=== PATIENT | female | born 1980 | race Caucasian/White ===

== ENCOUNTER 2017-02-27 01:27 | Emergency (ER) | payer BC ==
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
[2017-02-27 02:13] LABS: ABSOLUTE LYMPHOCYTES (AUTO) 2.8 10^3/uL (0.5-4.7); ABSOLUTE MONOCYTES (AUTO) 0.4 10^3/uL (0.1-1.4); ABSOLUTE NEUT (AUTO) 3.5 10^3/uL (1.7-8.2); BASOPHILS % (AUTO) 0.5 % (0-2); EOSINOPHILS % (AUTO) 0.5 % (0-6); HEMATOCRIT 38.7 % (36.0-47.0); HEMOGLOBIN 12.8 g/dL (12.0-15.5); HGB HCT DIFFERENCE -0.3; MEAN CORPUSCULAR HEMOGLOBIN 32.3 pg (27.0-33.4); MEAN CORPUSCULAR HGB CONC 33.1 g/dL (32.0-36.0); MEAN CORPUSCULAR VOLUME 98 fl (80-97); MONOCYTES % (AUTO) 5.7 % (3-13); RED BLOOD COUNT 3.96 10^6/uL (3.72-5.28); RED CELL DISTRIBUTION WIDTH 13.9 % (11.5-14.0); SEGMENTED NEUTROPHILS % (AUTO) 51.3 % (42-78); WHITE BLOOD COUNT 6.7 10^3/uL (4.0-10.5)
[2017-02-27 02:26] LABS: ALANINE AMINOTRANSFERASE 17 U/L (9-52); ALBUMIN 4.2 g/dL (3.5-5.0); ALKALINE PHOSPHATASE 86 U/L (38-126); ANION GAP 16 (5-19); ASPARTATE AMINO TRANSFERASE 24 U/L (14-36); BILIRUBIN,DIRECT 0.2 mg/dL (0.0-0.4); BILIRUBIN,TOTAL 0.2 mg/dL (0.2-1.3); BLOOD UREA NITROGEN 6 mg/dL (7-20); CALCIUM 9.8 mg/dL (8.4-10.2); CARBON DIOXIDE 15 mmol/L (22-30); CHLORIDE 111 mmol/L (98-107); CREATININE RESULT 0.65 mg/dL (0.52-1.25); GLUCOSE 116 mg/dL (75-110); POTASSIUM 4.1 mmol/L (3.6-5.0); SODIUM 142.3 mmol/L (137-145); TOTAL PROTEIN 7.4 g/dL (6.3-8.2)
[2017-02-27 02:38] LABS: ALCOHOL 401 mg/dL (NONE DETECTED)
[2017-02-27 07:44] LABS: APPEARANCE,URINE CLEAR; BILIRUBIN,URINE NEGATIVE (NEGATIVE); GLUCOSE, URINE NEGATIVE (NEGATIVE); KETONES,URINE NEGATIVE (NEGATIVE); LEUKOCYTE ESTERASE,URINE NEGATIVE (NEGATIVE); NITRITE,URINE NEGATIVE (NEGATIVE); PROTEIN,URINE NEGATIVE (NEGATIVE); URINE SPECIFIC GRAVITY 1.004; UROBILINOGEN,URINE NEGATIVE mg/dL (<2.0)
[2017-02-27 08:01] LABS: URINE BARBITURATES SCREEN NEGATIVE; URINE METHADONE SCREEN NEGATIVE; URINE OPIATES LOW NEGATIVE; URINE PHENCYCLIDINE SCREEN NEGATIVE
--- NOTE | 2017-02-27 09:47 | ER Document Report ---
Doctor's Note Notes: 02/27/17 09:46 Patient is calm and cooperative at time of my evaluation, resting comfortably on stretcher, she is requesting a glass of water, she does not recall most of what occurred last night but when I talked to her about her high blood alcohol level and a suicide note she did recall both of these facts, and became quite tearful, states she has a history of suicide attempt in the past but a long time ago, she is not currently in any type of mental health treatment program, we are awaiting evaluation by mental health coordinator for further recommendations, otherwise patient is medically stable for transfer or discharge based on those recommendations
--- NOTE | 2017-02-27 10:24 | EKG REPORT ---
SEVERITY:- NORMAL ECG - SINUS RHYTHM : Confirmed by: Shelia Posadas MD 27-Feb-2017 10:22:34
[2017-02-27] MEDS ORDERED: ONDANSETRON 4 MG TAB.RAPDIS SL ONE (13:08)
[2017-02-27] MEDS ORDERED: ALPRAZOLAM 0.25 MG TABLET PO ONE (13:27)
[2017-02-27] MEDS ORDERED: IBUPROFEN 600 MG TABLET PO ONE ×2 (17:21→21:38)
[2017-02-27] MEDS ORDERED: PROMETHAZINE HCL 25 MG TABLET PO ONE (20:35)
[2017-02-27] MEDS ORDERED: DIPHENHYDRAMINE HCL 50 MG CAPSULE PO ONE (21:38)
[2017-02-27] MEDS ORDERED: BUSPIRONE HCL 10 MG TABLET PO SCH (22:00)
[2017-02-27] MEDS ORDERED: ALPRAZOLAM 0.5 MG TABLET PO ONE (23:25)
[2017-02-28] MEDS ORDERED: PROMETHAZINE HCL 25 MG TABLET PO ONE ×2 (04:37→10:29)
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
[2017-02-28] MEDS ORDERED: IBUPROFEN 600 MG TABLET PO ONE (07:50)
[2017-02-28] MEDS ORDERED: VENLAFAXINE HCL 37.5 MG CAP.SR.24H PO SCH (10:00)
--- NOTE | 2017-02-28 10:31 | ER Document Report ---
Doctor's Note Notes: 02/28/17 10:30 The patient is complaining of nausea this morning. She reports she has nausea frequently, she states she started her period this morning and that is a trigger for nausea. She has a prescription for Phenergan at home and usually takes 2 at a time. She states they have only been giving her one at a time and last dose was last night. He will be given Phenergan 50 mg p.o. at this time. She will be reassessed by mental health this morning, as her alcohol level is now down to 0.
[2017-02-28] MEDS ORDERED: ACETAMINOPHEN 325 MG TABLET PO ONE (12:12)
[2017-02-28] MEDS ORDERED: PROMETHAZINE HCL 25 MG TABLET PO PRN (14:49)
[2017-02-28] MEDS ORDERED: ONDANSETRON HCL 8 MG TABLET PO PRN (14:49)
--- NOTE | 2017-02-28 15:43 | ER Document Report ---
Doctor's Note Notes: 02/28/17 15:43 Patient has been accepted at [facility] and will be transported shortly.
[2017-02-28 15:48] VITALS: BP 134/82
[2017-02-28] MEDS ORDERED: ALPRAZOLAM 0.5 MG TABLET PO SCH (18:00)
[2017-02-28] MEDS ORDERED: TIZANIDINE HCL 4 MG TABLET PO SCH (18:00)
[2017-03-01] MEDS ORDERED: LANSOPRAZOLE 30 MG TAB.RAP.DR PO SCH (08:00)
[2017-03-01] MEDS ORDERED: RIVAROXABAN 10 MG TABLET PO SCH (10:00)
[2017-03-01] MEDS ORDERED: FEXOFENADINE PO SCH (10:00)
[2017-03-01] MEDS ORDERED: PSEUDOEPHEDRINE PO SCH (10:00)
[2017-03-01] MEDS ORDERED: ESCITALOPRAM OXALATE 10 MG TABLET PO SCH (10:00)
[2017-03-01] MEDS ORDERED: LORATADINE/PSEUDOEPHEDRINE SUL 10-240 MG TAB.SR.24H PO SCH (10:00)
[2017-03-01] MEDS ORDERED: FLUTICASONE NASAL SPRAY 50 MCG/SPRY 120 SPRAY/16 GM NASL SCH (10:00)
== END 2017-02-28 16:05 | disposition short-term general hospital (02) ==
LOC: ER 01:27
DX: R45.851 Suicidal ideations (principal); R11.0 Nausea; Z63.0 Problems in relationship with spouse or partner; F32.9 Major depressive disorder, single episode, unspecified; Z79.899 Other long term (current) drug therapy
CPT/HCPCS: 93005; 99284; 36415; 80307 ×4; 84703; 85025; 80053; 81001; 93010; J3490; S0119

== ENCOUNTER 2018-02-14 23:28 | Emergency (ER) | payer OTHER, BC ==
[2018-02-14] MEDS ORDERED: ONDANSETRON 4 MG TAB.RAPDIS PO ONE (23:53)
[2018-02-14] MEDS ORDERED: DIPH/PERTUSS(ACELL)/TETANUS VAC/PF 0.5 ML SYR (>=10YO) IM ONE (23:54)
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
[2018-02-15] MEDS ORDERED: ACETAMINOPHEN 325 MG TABLET PO ONE (00:47)
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
[2018-02-15] MEDS ORDERED: ONDANSETRON 4 MG TAB.RAPDIS ONE (00:59)
[2018-02-15 01:15] VITALS: BP 125/87
== END 2018-02-15 01:05 | disposition home or self-care (01) ==
LOC: ER 23:28
DX: S00.11XA Contusion of right eyelid and periocular area, initial encounter (principal); S00.83XA Contusion of other part of head, initial encounter; S02.2XXA Fracture of nasal bones, initial encounter for closed fracture; S00.03XA Contusion of scalp, initial encounter; S40.022A Contusion of left upper arm, initial encounter; Y04.2XXA Assault by strike against or bumped into by another person, initial encounter; V47.5XXA Car driver injured in collision with fixed or stationary object in traffic accident, initial encounter
CPT/HCPCS: 99284; 73060; 70450; 72125; S0119

== ENCOUNTER 2018-06-14 04:09 | Emergency (ER) | payer BC ==
[2018-06-14] MEDS ORDERED: NORMAL SALINE 1000 ML 1,000 ML IV ONE (04:37)
[2018-06-14] MEDS ORDERED: ONDANSETRON HCL INJ/PF 4 MG/2 ML SDV IV ONE ×2 (04:37→06:14)
--- NOTE | 2018-06-14 04:38 | ER Document Report ---
ED Medical Screen (RME) - General Chief Complaint: Abdominal Pain Stated Complaint: ABDOMINAL PAIN Time Seen by Provider: 06/14/18 04:31 Notes: 2-year-old female chief complaint of upper abdominal pain, vomiting, a few episodes of loose stools. Symptoms started yesterday. Denies fever, flank pain , or any other complaints. Reports feeling dehydrated and that she "came for fluids". TRAVEL OUTSIDE OF THE [place] IN LAST 30 DAYS: No - Related Data Allergies/Adverse Reactions: No Known Allergies Allergy (Verified 06/14/18 04:12) Past Medical History - Past Medical History Cardiac Medical History: Denies: Hx Heart Attack, Hx Hypertension Pulmonary Medical History: Denies: Hx Asthma Neurological Medical History: Denies: Hx Cerebrovascular Accident, Hx Seizures Renal/ Medical History: Denies: Hx Peritoneal Dialysis GI Medical History: Reports: Hx Gastroesophageal Reflux Disease. Denies: Hx Hepatitis, Hx Hiatal Hernia, Hx Ulcer Psychiatric Medical History: Reports: Hx Depression Infectious Medical History: Denies: Hx Hepatitis Past Surgical History: Reports: Hx Tubal Ligation. Denies: Hx Hysterectomy, Hx Mastectomy, Hx Open Heart Surgery, Hx Pacemaker - Immunizations Hx Diphtheria, Pertussis, Tetanus Vaccination: Yes Physical Exam - Vital signs Vitals: Temp Pulse Resp BP Pulse Ox 98.2 F 95 18 97/59 L 96 06/14/18 04:12 06/14/18 04:12 06/14/18 04:12 06/14/18 04:12 06/14/18 04:12 - Abdominal Tenderness: Tender - Generalized abdominal tenderness with increased tenderness in the general upper abdomen, no guarding, rigidity, or rebound tenderness Course - Vital Signs Vital signs: Temp Pulse Resp BP Pulse Ox 98.2 F 95 18 97/59 L 96 06/14/18 04:12 06/14/18 04:12 06/14/18 04:12 06/14/18 04:12 06/14/18 04:12 Doctor's Discharge - Discharge Referrals: MARCOS GILLESPIE MD [Primary Care Provider] - Follow up as needed
[2018-06-14 05:01] LABS: ABSOLUTE EOSINOPHILS # (AUTO) 0.1 10^3/uL (0.0-0.6); ABSOLUTE LYMPHOCYTES (AUTO) 2.3 10^3/uL (0.5-4.7); ABSOLUTE MONOCYTES (AUTO) 0.4 10^3/uL (0.1-1.4); ABSOLUTE NEUT (AUTO) 10.7 10^3/uL (1.7-8.2); BASOPHILS % (AUTO) 0.3 % (0-2); EOSINOPHILS % (AUTO) 0.8 % (0-6); HEMATOCRIT 27.7 % (36.0-47.0); LYMPHOCYTES % (AUTO) 16.6 % (13-45); MEAN CORPUSCULAR HEMOGLOBIN 24.4 pg (27.0-33.4); MEAN CORPUSCULAR HGB CONC 32.5 g/dL (32.0-36.0); MEAN CORPUSCULAR VOLUME 75 fl (80-97); MONOCYTES % (AUTO) 3.2 % (3-13); PLATELET COUNT 457 10^3/uL (150-450); RED BLOOD COUNT 3.69 10^6/uL (3.72-5.28); SEGMENTED NEUTROPHILS % (AUTO) 79.1 % (42-78); TOTAL CELLS COUNTED % (AUTO) 100 %; WHITE BLOOD COUNT 13.6 10^3/uL (4.0-10.5)
[2018-06-14 05:14] LABS: ALANINE AMINOTRANSFERASE 18 U/L (9-52); ALBUMIN 4.3 g/dL (3.5-5.0); ALKALINE PHOSPHATASE 139 U/L (38-126); ANION GAP 18 (5-19); ASPARTATE AMINO TRANSFERASE 27 U/L (14-36); BILIRUBIN,DIRECT 0.2 mg/dL (0.0-0.4); BILIRUBIN,TOTAL 0.2 mg/dL (0.2-1.3); BLOOD UREA NITROGEN 5 mg/dL (7-20); CALCIUM 9.1 mg/dL (8.4-10.2); CARBON DIOXIDE 19 mmol/L (22-30); CHLORIDE 105 mmol/L (98-107); GLUCOSE 109 mg/dL (75-110); LIPASE 1611.6 U/L (23-300); SODIUM 141.5 mmol/L (137-145); TOTAL PROTEIN 7.4 g/dL (6.3-8.2)
[2018-06-14] MEDS ORDERED: NORMAL SALINE 1000 ML 1,000 ML IV PRN (06:12)
[2018-06-14] MEDS ORDERED: FENTANYL CITRATE INJ/PF 100 MCG/2 ML AMPUL IV ONE (06:14)
--- NOTE | 2018-06-14 06:32 | ER Document Report ---
ED GI/ - General Chief Complaint: Abdominal Pain Stated Complaint: ABDOMINAL PAIN Time Seen by Provider: 06/14/18 04:31 Mode of Arrival: Ambulatory Information source: Patient Notes: Chief complaint: abdominal pain: History of complain:( obtained from----patient) 38 years old female, with a history of alcohol abuse and pancreatitis, presents today with an episode of abdominal pain nausea vomiting. Was acting belligerent. Appears to be under the influence of either alcohol or sedating substance. She falls asleep frequently and wakes up screaming. No history of fever chills diarrhea. History is limited. Onset: Unknown Duration: Unknown Severity: Moderate to severe Quality: Sharp Context: Abdominal pain Exacerbating factor and relieving factors: REVIEW OF SYSTEMS: CONSTITUTIONAL : Denies fever, chills, or sweats. Denies recent illness. EENT: Denies eye, ear, throat, or mouth pain or symptoms. Denies nasal or sinus congestion or discharge. Denies throat, tongue, or mouth swelling or difficulty swallowing. CARDIOVASCULAR: Denies chest pain. Denies palpitations or racing or irregular heart beat. Denies ankle edema. RESPIRATORY: Denies cough, cold, or chest congestion. Denies shortness of breath, difficulty breathing, or wheezing. GASTROINTESTINAL: Denies distention. Denies nausea, vomiting, or diarrhea. Denies blood in vomitus, stools, or per rectum. Denies black, tarry stools. Denies constipation. GENITOURINARY: Denies difficulty urinating, painful urination, burning, frequency, blood in urine, or discharge. FEMALE GENITOURINARY: Denies vaginal bleeding, heavy or abnormal periods, irregular periods. Denies vaginal discharge or odor. MUSCULOSKELETAL: Denies back or neck pain or stiffness. Denies joint pain or swelling. SKIN: Denies rash, lesions or sores. HEMATOLOGIC : Denies easy bruising or bleeding. LYMPHATIC: Denies swollen, enlarged glands. NEUROLOGICAL: Denies confusion or altered mental status. Denies passing out or loss of consciousness. Denies dizziness or lightheadedness. Denies headache. Denies weakness or paralysis or loss of use of either side. Denies problems with gait or speech. Denies sensory loss, numbness, or tingling. Denies seizures. PSYCHIATRIC: Denies anxiety or stress. Denies depression, suicidal ideation, or homicidal ideation. ALL OTHER SYSTEMS REVIEWED AND NEGATIVE. PHYSICAL EXAMINATION: GENERAL: Well-appearing, well-nourished and in moderate acute distress. HEAD: Atraumatic, normocephalic. EYES: Pupils equal round and reactive to light, extraocular movements intact, conjunctiva are normal. ENT: Nares patent, oropharynx clear without exudates. Moist mucous membranes. NECK: Normal range of motion, supple without lymphadenopathy LUNGS: Breath sounds clear to auscultation bilaterally and equal. No wheezes rales or rhonchi. HEART: Regular rate and rhythm without murmurs ABDOMEN: Soft, nontender, nondistended abdomen. No guarding, no rebound. No masses appreciated. Female : deferred Musculoskeletal: Normal range of motion, no pitting or edema. No cyanosis. NEUROLOGICAL: Cranial nerves grossly intact. Normal speech, normal gait. Normal sensory, motor exams PSYCH: Normal mood, normal affect. SKIN: Warm, Dry, normal turgor, no rashes or lesions noted. Dictation was performed using [employer] voice recognition software TRAVEL OUTSIDE OF THE [place] IN LAST 30 DAYS: No - HPI Notes: 06/14/18 06:31 Dictated - Related Data Allergies/Adverse Reactions: No Known Allergies Allergy (Verified 06/14/18 04:12) Past Medical History - Social History Smoking Status: Smoker,Current Status Unk Cigarette use (# per day): No Chew tobacco use (# tins/day): No Smoking Education Provided: No Frequency of alcohol use: Heavy Drug Abuse: Prescription drugs - Unknown as of yet Lives with: Alone Family History: Reviewed & Not Pertinent Patient has suicidal ideation: No Patient has homicidal ideation: No - Past Medical History Cardiac Medical History: Denies: Hx Heart Attack, Hx Hypertension Pulmonary Medical History: Denies: Hx Asthma Neurological Medical History: Denies: Hx Cerebrovascular Accident, Hx Seizures Renal/ Medical History: Denies: Hx Peritoneal Dialysis GI Medical History: Reports: Hx Gastroesophageal Reflux Disease. Denies: Hx Hepatitis, Hx Hiatal Hernia, Hx Ulcer Psychiatric Medical History: Reports: Hx Depression Infectious Medical History: Denies: Hx Hepatitis Past Surgical History: Reports: Hx Tubal Ligation. Denies: Hx Hysterectomy, Hx Mastectomy, Hx Open Heart Surgery, Hx Pacemaker - Immunizations Hx Diphtheria, Pertussis, Tetanus Vaccination: Yes Review of Systems - Review of Systems Notes: Dictated Physical Exam - Vital signs Vitals: Temp Pulse Resp BP Pulse Ox 98.2 F 95 18 97/59 L 96 06/14/18 04:12 06/14/18 04:12 06/14/18 04:12 06/14/18 04:12 06/14/18 04:12 - Notes Notes: Dictated Course - Vital Signs Vital signs: Temp Pulse Resp BP Pulse Ox 98.2 F 95 18 97/59 L 96 06/14/18 04:12 06/14/18 04:12 06/14/18 04:12 06/14/18 04:12 06/14/18 04:12 - Laboratory Result Diagrams: 06/14/18 04:44 06/14/18 04:44 Laboratory results interpreted by me: 06/14/18 06/14/18 04:44 04:44 WBC 13.6 H RBC 3.69 L Hgb 9.0 L Hct 27.7 L MCV 75 L MCH 24.4 L RDW 22.0 H Plt Count 457 H Seg Neutrophils % 79.1 H Absolute Neutrophils 10.7 H Carbon Dioxide 19 L BUN 5 L Alkaline Phosphatase 139 H Lipase 1611.6 H Discharge - Discharge Referrals: MARCOS GILLESPIE MD [Primary Care Provider] - Follow up as needed
[2018-06-14 07:10] VITALS: BP 118/65
[2018-06-14 08:30] LABS: APPEARANCE,URINE CLEAR; BILIRUBIN,URINE NEGATIVE (NEGATIVE); COLOR,URINE COLORLESS; GLUCOSE, URINE NEGATIVE (NEGATIVE); KETONES,URINE NEGATIVE (NEGATIVE); LEUKOCYTE ESTERASE,URINE NEGATIVE (NEGATIVE); NITRITE,URINE NEGATIVE (NEGATIVE); PROTEIN,URINE NEGATIVE (NEGATIVE); URINE SPECIFIC GRAVITY 1.002; UROBILINOGEN,URINE NEGATIVE mg/dL (<2.0)
[2018-06-14 08:53] LABS: URINE AMPHETAMINES SCREEN NEGATIVE; URINE BARBITURATES SCREEN NEGATIVE; URINE BENZODIAZEPINES SCREEN NEGATIVE; URINE COCAINE SCREEN NEGATIVE; URINE MARIJUANA (THC) SCREEN NEGATIVE; URINE METHADONE SCREEN NEGATIVE; URINE PHENCYCLIDINE SCREEN NEGATIVE
== END 2018-06-14 12:07 | disposition left against medical advice (07) ==
LOC: ER 04:09
DX: R10.9 Unspecified abdominal pain (principal); F17.200 Nicotine dependence, unspecified, uncomplicated; Z98.51 Tubal ligation status
CPT/HCPCS: 96376; 99284; 96361; 96374; 36415; 80307 ×2; 83690; 85025; 81025; 80053; 81001; J2405

== ENCOUNTER 2018-07-24 16:37 | Inpatient (IN) | payer BC ==
--- NOTE | 2018-07-24 16:47 | ER Document Report ---
ED Psych Disorder / Suicide - General Chief Complaint: Suicidal Ideation Stated Complaint: SUICIDAL IDEATION Time Seen by Provider: 07/24/18 16:42 Notes: This is a 38-year-old female to the emergency department chief complaint of intoxication and possible suicidal ideation. Patient states that she is a heavy drinker. Was recently on a drug and alcohol treatment program. Thinks it may be she is drinking to kill herself. She did not actually tell me this but this is what she had reportedly told an officer on the scene. Patient states that she has a headache. Patient does have a bruise on her left eye. States that she has some abdominal pain as well. History of pancreatitis. Denies any other ingestions other than a gallon of vodka. Thinks that she may have drunk half a gallon of vodka today. She states that she has been vomiting for several days. TRAVEL OUTSIDE OF THE [place] IN LAST 30 DAYS: No - HPI Patient complains to provider of: Overdose, Suicidal ideation Onset was: Gradual Quality of pain: Achy Severity: Moderate Pain Level: 3 - Related Data Allergies/Adverse Reactions: No Known Allergies Allergy (Verified 07/24/18 16:42) Past Medical History - General Information source: Patient, [facility] Records - Social History Smoking Status: Smoker,Current Status Unk Frequency of alcohol use: Heavy Drug Abuse: None Lives with: Family Family History: Reviewed & Not Pertinent - Past Medical History Cardiac Medical History: Denies: Hx Heart Attack, Hx Hypertension Pulmonary Medical History: Denies: Hx Asthma Neurological Medical History: Denies: Hx Cerebrovascular Accident, Hx Seizures Renal/ Medical History: Denies: Hx Peritoneal Dialysis GI Medical History: Reports: Hx Gastroesophageal Reflux Disease. Denies: Hx Hepatitis, Hx Hiatal Hernia, Hx Ulcer Psychiatric Medical History: Reports: Hx Depression Infectious Medical History: Denies: Hx Hepatitis Past Surgical History: Reports: Hx Tubal Ligation. Denies: Hx Hysterectomy, Hx Mastectomy, Hx Open Heart Surgery, Hx Pacemaker - Immunizations Hx Diphtheria, Pertussis, Tetanus Vaccination: Yes Review of Systems - Review of Systems Notes: Constitutional: denies: Chills, Diaphoresis, Fever, Malaise, Weakness EENT: denies: Eye discharge, Blurred vision, Tearing, Double vision, Nose congestion, Nose discharge, Throat swelling, Mouth pain. +Pain on the left eye with bruising Cardiovascular: denies: Palpitations, Heart racing, Orthopnea, Dyspnea, Chest pain Respiratory: denies: Cough, Hurts to breathe, Wheezing, Shortness of breath Gastrointestinal: denies: Diarrhea, Nausea, Vomiting, Black stools, bright red blood in stool. + Epigastric abd pain Genitourinary: denies: Burning, Dysuria, Discharge, Frequency, Flank pain, Hematuria Musculoskeletal: denies: Joint pain, Joint swelling, Muscle pain, Muscle stiffness, back pain Hematologic/Lymphatic: denies: Anemia, Easy bleeding, Easy bruising, Blood clots Neurological/Psychological: denies: Confusion, Dementia, Depression, Loss of consciousness Skin: No lesions, no masses, no skin breakdown, no abscesses Physical Exam - Vital signs Vitals: Temp Pulse Resp BP Pulse Ox 98.9 F 93 18 142/80 H 96 07/24/18 17:00 07/24/18 17:00 07/24/18 17:00 07/24/18 17:00 07/24/18 17:00 Interpretation: Normal - General General appearance: Appears well, Alert - HEENT Head: Normocephalic, Atraumatic Eyes: Normal, Other - There is a bruise on the left upper eyelid Pupils: PERRL - Respiratory Respiratory status: No respiratory distress Chest status: Nontender Breath sounds: Normal Chest palpation: Normal - Cardiovascular Rhythm: Regular Heart sounds: Normal auscultation Murmur: No - Abdominal Inspection: Normal Distension: No distension Bowel sounds: Normal Tenderness: Nontender Organomegaly: No organomegaly - Back Back: Normal, Nontender - Extremities General upper extremity: Normal inspection, Nontender, Normal color, Normal ROM , Normal temperature General lower extremity: Normal inspection, Nontender, Normal color, Normal ROM , Normal temperature, Normal weight bearing. No: Florin's sign - Neurological Neuro grossly intact: Yes Cognition: Normal Orientation: AAOx4 Ashlee Coma Scale Eye Opening: Spontaneous Ashlee Coma Scale Verbal: Oriented [place] Coma Scale Motor: Obeys Commands Ashlee Coma Scale Total: 15 Speech: Normal Motor strength normal: LUE, RUE, LLE, RLE Sensory: Normal - Psychological Associated symptoms: Confused, Depressed, Tearful, Other - Intoxicated - Skin Skin Temperature: Warm Skin Moisture: Dry Skin Color: Normal Course - Re-evaluation Re-evalutation: 07/24/18 17:22 At this time with patient's reported alcohol ingestion we will get basic psych screening labs. Will place on a petition for observation. Will get head CT. Pepcid p.o. and reassess. 07/24/18 18:14 Patient's blood work revealed remarkably decreased sodium level at 108. ED seizure precaution orders placed. Stat IV ordered. Normal saline bolus ordered. Normal saline drip ordered. Will place patient on a monitor. Will move out of the mental health area and back over to the main side of the ED as soon as possible. 07/24/18 18:18 Laboratory 07/24/18 07/24/18 07/24/18 16:45 16:45 16:45 WBC 15.1 H RBC 4.10 Hgb 9.5 L Hct 27.6 L MCV 67 L MCH 23.1 L MCHC 34.3 RDW 20.7 H Plt Count 670 H Seg Neutrophils % 91.9 H Lymphocytes % 6.0 L Monocytes % 2.1 L Eosinophils % 0.0 Basophils % 0.0 Absolute Neutrophils 13.9 H Absolute Lymphocytes 0.9 Absolute Monocytes 0.3 Absolute Eosinophils 0.0 Absolute Basophils 0.0 Sodium 108.1 L* Potassium 4.9 Chloride 59 L Carbon Dioxide 23 Anion Gap 26 H BUN 6 L Creatinine 0.50 L Est GFR ( Amer) > 60 Est GFR (Non-Af Amer) > 60 Glucose 111 H Calcium 9.2 Total Bilirubin 0.4 Direct Bilirubin 0.3 Neonat Total Bilirubin Not Reportable Neonat Direct Bilirubin Not Reportable Neonat Indirect Bili Not Reportable AST 70 H ALT 36 Alkaline Phosphatase 172 H Total Protein 8.1 Albumin 4.9 Lipase 449.9 H Salicylates < 1.0 L Acetaminophen < 10 L Serum Alcohol 180 07/24/18 19:01 Repeat stat sodium still remarkably low at 109. Patient currently getting normal saline. Patient is sitting upright. Complaining of a headache. Head CT results pending but appears unremarkable. 07/24/18 19:[address] 07/24/18 17:07 IMPRESSION: No acute intracranial findings. EVIDENCE OF ACUTE STROKE: NO. Will give 150 mL's of 3% saline. Consulted hospitalist who will admit at this time. - Vital Signs Vital signs: Temp Pulse Resp BP Pulse Ox 98.9 F 93 18 142/80 H 96 07/24/18 17:00 07/24/18 17:00 07/24/18 17:00 07/24/18 17:00 07/24/18 17:00 - Laboratory Result Diagrams: 07/24/18 16:45 07/24/18 18:20 Laboratory results interpreted by me: 07/24/18 07/24/18 07/24/18 16:45 16:45 16:45 WBC 15.1 H Hgb 9.5 L Hct 27.6 L MCV 67 L MCH 23.1 L RDW 20.7 H Plt Count 670 H Seg Neutrophils % 91.9 H Lymphocytes % 6.0 L Monocytes % 2.1 L Absolute Neutrophils 13.9 H Sodium 108.1 L* Chloride 59 L Anion Gap 26 H BUN 6 L Creatinine 0.50 L Glucose 111 H AST 70 H Alkaline Phosphatase 172 H Lipase 449.9 H Salicylates < 1.0 L Acetaminophen < 10 L 07/24/18 18:20 WBC Hgb Hct MCV MCH RDW Plt Count Seg Neutrophils % Lymphocytes % Monocytes % Absolute Neutrophils Sodium 109.0 L* Chloride Anion Gap BUN Creatinine Glucose AST Alkaline Phosphatase Lipase Salicylates Acetaminophen - EKG Interpretation by Me EKG shows normal: Sinus rhythm, R[place], Intervals, QRS Complexes, ST-T Waves Critical Care Note - Critical Care Note Total time excluding time spent on procedures (mins): 45 Comments: Altered mental status, hyponatremia, intoxication Discharge - Discharge Clinical Impression: Acute hyponatremia, Suicidal ideation Alcohol intoxication Qualifiers: Complication of substance-induced condition: uncomplicated Qualified Code(s): F10.920 - Alcohol use, unspecified with intoxication, uncomplicated Condition: Fair Disposition: ADMITTED INPATIENT [facility] Ad[facility]: [facility]
[2018-07-24 17:12] LABS: ABSOLUTE LYMPHOCYTES (AUTO) 0.9 10^3/uL (0.5-4.7); ABSOLUTE MONOCYTES (AUTO) 0.3 10^3/uL (0.1-1.4); ABSOLUTE NEUT (AUTO) 13.9 10^3/uL (1.7-8.2); HEMATOCRIT 27.6 % (36.0-47.0); HEMOGLOBIN 9.5 g/dL (12.0-15.5); MEAN CORPUSCULAR HEMOGLOBIN 23.1 pg (27.0-33.4); MEAN CORPUSCULAR HGB CONC 34.3 g/dL (32.0-36.0); MEAN CORPUSCULAR VOLUME 67 fl (80-97); MONOCYTES % (AUTO) 2.1 % (3-13); PLATELET COUNT 670 10^3/uL (150-450); RED CELL DISTRIBUTION WIDTH 20.7 % (11.5-14.0); SEGMENTED NEUTROPHILS % (AUTO) 91.9 % (42-78); TOTAL CELLS COUNTED % (AUTO) 100 %; WHITE BLOOD COUNT 15.1 10^3/uL (4.0-10.5)
[2018-07-24] MEDS ORDERED: FAMOTIDINE 20 MG TABLET PO ONE (17:19)
[2018-07-24 17:31] LABS: ALANINE AMINOTRANSFERASE 36 U/L (9-52); ALBUMIN 4.9 g/dL (3.5-5.0); ALCOHOL 180 mg/dL (NONE DETECTED); ALKALINE PHOSPHATASE 172 U/L (38-126); ASPARTATE AMINO TRANSFERASE 70 U/L (14-36); BILIRUBIN,DIRECT 0.3 mg/dL (0.0-0.4); BILIRUBIN,TOTAL 0.4 mg/dL (0.2-1.3); BLOOD UREA NITROGEN 6 mg/dL (7-20); CALCIUM 9.2 mg/dL (8.4-10.2); GLUCOSE 111 mg/dL (75-110); POTASSIUM 4.9 mmol/L (3.6-5.0); TOTAL PROTEIN 8.1 g/dL (6.3-8.2)
[2018-07-24 17:35] LABS: CARBON DIOXIDE 23 mmol/L (22-30); CHLORIDE 59 mmol/L (98-107)
[2018-07-24 17:44] LABS: ACETAMINOPHEN < 10 ug/mL (10-30); SALICYLATE < 1.0 mg/dL (2.0-20.0)
[2018-07-24 17:45] LABS: ANION GAP 26 (5-19)
[2018-07-24 17:46] LABS: SODIUM 108.1 mmol/L (137-145)
[2018-07-24] MEDS ORDERED: NORMAL SALINE 1000 ML 1,000 ML IV ONE ×2 (18:00)
[2018-07-24] MEDS ORDERED: ONDANSETRON HCL INJ/PF 4 MG/2 ML SDV IV ONE (18:49)
[2018-07-24] MEDS ORDERED: LORAZEPAM INJ 2 MG/1 ML VIAL IV ONE (19:02)
--- NOTE | 2018-07-24 19:04 | RADIOLOGY REPORT (SQ) ---
EXAM DESCRIPTION: CT HEAD WITHOUT COMPLETED DATE/TIME: 07/24/2018 6:41 pm REASON FOR STUDY: intoxicated, fall COMPARISON: 02/14/2018 TECHNIQUE: Axial images acquired through the brain without intravenous contrast. Images reviewed wi th bone, brain and subdural windows. Images stored on PACS. All CT scanners at this facility use dose modulation, iterative reconstruction, and/or weight based d osing when appropriate to reduce radiation dose to as low as reasonably achievable (ALARA). [facility]: Dose Right [facility]: CareDose [facility]: Dose Right [facility]: Teradose 4D [facility]: Smart MembraneX RADIATION DOSE: CT Rad equipment meets quality standard of care and radiation dose reduction techniq ues were employed. CTDIvol: 53.2 mGy. DLP: 1017 mGy-cm. mGy. LIMITATIONS: None. FINDINGS: VENTRICLES: Normal size and contour. CEREBRUM: No masses. No hemorrhage. No midline shift. No evidence for acute infarction. Normal gra y/white matter differentiation. No areas of low density in the white matter. CEREBELLUM: No masses. No hemorrhage. No alteration of density. No evidence for acute infarction. EXTRAAXIAL SPACES: No fluid collections. No masses. ORBITS AND GLOBE: No intra- or extraconal masses. Normal contour of globe without masses. CALVARIUM: No fracture. PARANASAL SINUSES: No fluid or mucosal thickening. SOFT TISSUES: No mass or hematoma. OTHER: No other significant finding. IMPRESSION: No acute intracranial findings. EVIDENCE OF ACUTE STROKE: NO. COMMENT: Quality ID # [id number]: Final reports with documentation of one or more dose reduction techniques (e.g., Automated exposure control, adjustment of the mA and/or kV according to patient size, use of iterative reconstruction technique) TECHNICAL DOCUMENTATION: JOB ID: [id number] [place]-72 2010 [employer]- All Rights Reserved Reading location - IP/workstation name: [email or web address]
[2018-07-24 19:39] LABS: APPEARANCE,URINE CLEAR; BILIRUBIN,URINE NEGATIVE (NEGATIVE); COLOR,URINE STRAW; GLUCOSE, URINE 50 mg/dL (NEGATIVE); KETONES,URINE TRACE mg/dL (NEGATIVE); LEUKOCYTE ESTERASE,URINE NEGATIVE (NEGATIVE); NITRITE,URINE NEGATIVE (NEGATIVE); PROTEIN,URINE 30 mg/dL (NEGATIVE); URINE SPECIFIC GRAVITY 1.004; UROBILINOGEN,URINE NEGATIVE mg/dL (<2.0)
[2018-07-24 19:52] LABS: URINE AMPHETAMINES SCREEN NEGATIVE; URINE BARBITURATES SCREEN NEGATIVE; URINE COCAINE SCREEN NEGATIVE; URINE MARIJUANA (THC) SCREEN NEGATIVE; URINE METHADONE SCREEN NEGATIVE; URINE PHENCYCLIDINE SCREEN NEGATIVE
[2018-07-24 19:55] LABS: URINE BENZODIAZEPINES SCREEN UNCONFIRMED POSITIVE
[2018-07-24] MEDS ORDERED: SODIUM CHLORIDE 3% 150 ML IV ONE (20:00)
[2018-07-24] MEDS ORDERED: NORMAL SALINE 1000 ML 1,000 ML IV PRN (21:19)
[2018-07-24] MEDS ORDERED: PROMETHAZINE HCL 25 MG SUPP.RECT PR PRN (21:19)
[2018-07-24] MEDS ORDERED: TEMAZEPAM 15 MG CAPSULE PO PRN (21:19)
[2018-07-24] MEDS ORDERED: GLUCAGON,HUMAN RECOMB 1 MG INJ SUBCUT PRN (21:19)
[2018-07-24] MEDS ORDERED: DEXTROSE 40% GEL 15 GM TUBE PO PRN ×4 (21:19→21:46)
[2018-07-24] MEDS ORDERED: DEXTROSE 50%-WATER 25 GM/50 ML DISP.SYRIN IV PRN ×4 (21:19→21:46)
[2018-07-24] MEDS ORDERED: ACETAMINOPHEN 325 MG TABLET PO ONE (21:27)
[2018-07-24] MEDS ORDERED: GLUCAGON,HUMAN RECOMB 1 MG INJ IM PRN (21:46)
[2018-07-24] MEDS ORDERED: INSULIN LISPRO 100 UNIT/ML 3 ML VIAL SUBCUT PRN (21:46)
[2018-07-24] MEDS: THIAMINE HCL 500 MG in NORMAL SALINE 250 ML IV SCH (22:25)
[2018-07-24 23:01] LABS: BLOOD UREA NITROGEN 4 mg/dL (7-20); CALCIUM 8.6 mg/dL (8.4-10.2); CARBON DIOXIDE 25 mmol/L (22-30); CHLORIDE 75 mmol/L (98-107); GLUCOSE 95 mg/dL (75-110)
[2018-07-24 23:03] LABS: ANION GAP 19 (5-19)
[2018-07-24 23:19] LABS: POTASSIUM 3.9 mmol/L (3.6-5.0); SODIUM 118.8 mmol/L (137-145)
--- NOTE | 2018-07-24 23:20 | PDOC H&P ---
History of Present Illness Admission Date/PCP: 07/24/18 19:29 MARCOS GILLESPIE MD Patient complains of: Generalized weakness History of Present Illness: HANH MULLINS is a 38 year old female with medical history remarkable for alcohol abuse for the last 10 years. To begin with, patient tells me that she was not suicidal as was mentioned in the ED notes, she tells me that she said to the paramedics that she knows she is going to of her alcohol dependence but was not any suicidal attempt today. Tells me she started alcohol detox in [facility] 2 weeks ago and she was clean, last Monday she started with persistent nausea and nonbloody vomiting and feeling very unbalanced, she has not been eating since then, and she was clean of alcohol UNTIL last night, she had 2 episodes of falling one on her left eye and one backwards hitting the back of her head. As she was not feeling good that she has started drinking yesterday until today, a total of half a gallon of vodka as she usually does. Today after her second fall she was able to stand up with a lot of difficulties and she decided to call EMS. At the time of my evaluation has severe headache. Denies fever, has been feeling chills today, denies shortness of breath, chest pain, abdominal pain, urinary symptoms, nonbloody diarrhea one episode yesterday. Tells me she was placed on blood pressure medicine after started detox for the withdrawal symptoms. In the emergency department her sodium was 109 with a chloride of 59, anion gap 26, serum alcohol level is 180, WBC 15. In the ED given 2 L of sodium chloride +3% of hypertonic. Past Medical History GI Medical History: Reports: Gastroesophageal Reflux Disease, Other - Chronic pancreatitis Psychiatric Medical History: Reports: Alcohol Dependency, Depression, General Anxiety Disorder, Tobacco Dependency Past Surgical History Past Surgical History: Pancreatic stent Past Surgical History: Reports: Tubal Ligation Social History Information Source: Patient Lives with: Spouse/Significant other Smoking Status: Current Every Day Smoker - 1 pack/day Frequency of Alcohol Use: Heavy - Usually drinks half gallon of vodka but has been in detox for the last 2 weeks, started drinking last night. Hx Recreational Drug Use: No Hx Prescription Drug Abuse: No Past Social History Note: Lives with her boyfriend Family History Family History: Reviewed & Not Pertinent Parental Family History Reviewed: Yes - Noncontributory Children Family History Reviewed: NA Sibling(s) Family History Reviewed.: NA Medication/Allergy Home Medications: Chlorthalidone [Chlorthalidone 50 mg Tablet] 50 mg PO DAILY 07/24/18 Fluoxetine HCl [Prozac 20 mg Capsule] 60 mg PO DAILY 07/24/18 Fluticasone Propionate [Flonase Nasal [place] 50 Mcg/[place] 16 gm] 1 spray NASL BID 07/24/18 Lisinopril [Prinivil 10 mg Tablet] 10 mg PO DAILY 07/24/18 Olanzapine [Zyprexa 5 mg Tablet] 5 mg PO QHS 07/24/18 Oxcarbazepine [Trileptal] 300 mg PO TID@09,15,21 07/24/18 Pantoprazole Sodium [Protonix] 40 mg PO DAILY 07/24/18 Tizanidine HCl [Zanaflex] 2 mg PO TIDP PRN 07/24/18 Trazodone HCl [Desyrel] 100 mg PO QHS 07/24/18 Allergies/Adverse Reactions: No Known Allergies Allergy (Verified 07/24/18 16:42) Review of Systems Review of Systems: As outlined in the HPI, others negative Physical Exam Vital Signs: Temp Pulse Resp BP Pulse Ox 98.9 F 93 15 137/72 H 98 07/24/18 17:00 07/24/18 17:00 07/24/18 22:01 07/24/18 22:01 07/24/18 22:01 Intake & Output 07/23/18 07/24/18 07/25/18 06:59 06:59 06:59 Intake Total 2150 Balance 2150 Additional comments: General appearance: Dishevel, ill looking, alert and cooperative, and appears to be in acute distress secondary to her illness. Head: Normocephalic Eyes: PEERL, EOMI, vision is grossly intact. Ears: External auditory canal and tympanic membranes clear, hearing grossly intact. Nose: No nasal discharge. Throat: Oral cavity and pharynx dry. No inflammation, swelling, exudate or lesions. Neck: Neck supple, nontender without lymphadenopathy, masses or thyromegaly. Cardiac: Normal S1 and S2. No S3, S4 or murmurs. Rhythm is regular and tachycardic. There is no peripheral edema, cyanosis or pallor. Extremities are warm and well perfused. Capillary refill is less than 2 seconds. No carotid bruits. Lungs: Clear to auscultation and percussion without rales, rhonchi, wheezing or diminished breath sounds. Not using accessory muscles. Abdomen: Positive bowel sounds. Soft. Nondistended, nontender. No guarding or rebound. No masses. No hepatosplenomegaly Extremities: No significant deformity or joint abnormality. No edema. Peripheral pulses intact. No varicosities. Neurological: Cranial nerves II through XII grossly intact. Strength and sensation symmetric and intact throughout. Reflexes 2+ throughout. Skin: Skin hematomas in the right elbow and left eye, multiple excoriation around her mouth, normal texture and turgor, warm and dry. Psychiatric: The mental examination revealed the patient was oriented to person , place, and time. The patient was able to demonstrate good judgment on recent , without hallucinations, abnormal affect or abnormal behaviors. Results Laboratory Results: 07/24/18 07/24/18 07/24/18 16:45 16:45 16:45 WBC 15.1 H RBC 4.10 Hgb 9.5 L Hct 27.6 L MCV 67 L MCH 23.1 L MCHC 34.3 RDW 20.7 H Plt Count 670 H Seg Neutrophils % 91.9 H Lymphocytes % 6.0 L Monocytes % 2.1 L Eosinophils % 0.0 Basophils % 0.0 Absolute Neutrophils 13.9 H Absolute Lymphocytes 0.9 Absolute Monocytes 0.3 Absolute Eosinophils 0.0 Absolute Basophils 0.0 Sodium 108.1 L* Potassium 4.9 Chloride 59 L Carbon Dioxide 23 Anion Gap 26 H BUN 6 L Creatinine 0.50 L Est GFR ( Amer) > 60 Est GFR (Non-Af Amer) > 60 Glucose 111 H Calcium 9.2 Total Bilirubin 0.4 Direct Bilirubin 0.3 AST 70 H ALT 36 Alkaline Phosphatase 172 H Total Protein 8.1 Albumin 4.9 Lipase 449.9 H Urine Color Urine Appearance Urine pH Ur Specific [place] Urine Protein Urine Glucose (UA) Urine Ketones Urine Blood Urine Nitrite Urine Bilirubin Urine Urobilinogen Ur Leukocyte Esterase Urine WBC (Auto) Urine RBC (Auto) Urine Bacteria (Auto) Squamous Epi Cells Auto Urine Ascorbic Acid Salicylates < 1.0 L Acetaminophen < 10 L Serum Alcohol 180 07/24/18 07/24/18 18:20 19:24 WBC RBC Hgb Hct MCV MCH MCHC RDW Plt Count Seg Neutrophils % Lymphocytes % Monocytes % Eosinophils % Basophils % Absolute Neutrophils Absolute Lymphocytes Absolute Monocytes Absolute Eosinophils Absolute Basophils Sodium 109.0 L* Potassium Chloride Carbon Dioxide Anion Gap BUN Creatinine Est GFR ( Amer) Est GFR (Non-Af Amer) Glucose Calcium Total Bilirubin Direct Bilirubin AST ALT Alkaline Phosphatase Total Protein Albumin Lipase Urine Color STRAW Urine Appearance CLEAR Urine pH 6.0 Ur Specific [place] 1.004 Urine Protein 30 H Urine Glucose (UA) 50 H Urine Ketones TRACE H Urine Blood SMALL H Urine Nitrite NEGATIVE Urine Bilirubin NEGATIVE Urine Urobilinogen NEGATIVE Ur Leukocyte Esterase NEGATIVE Urine WBC (Auto) 0 Urine RBC (Auto) 0 Urine Bacteria (Auto) TRACE Squamous Epi Cells Auto 2 Urine Ascorbic Acid NEGATIVE Salicylates Acetaminophen Serum Alcohol Impressions: Head CT 07/24/18 17:07 IMPRESSION: No acute intracranial findings. EVIDENCE OF ACUTE STROKE: NO. Assessment & Plan - Diagnosis (1) Acute hyponatremia Is this a current diagnosis for this admission?: Yes Plan: Patient comes with severe hyponatremia, initial serum sodium 108, this is likely multifactorial with severe dehydration, use of chlorthalidone, probably of association with fluoxetine and olanzapine which are on hold. I am adding to prior labs serum and urine osmolality, urine sodium. Patient already received 2 L of normal saline with 500 cc of 3% normal saline. We will continue with normal saline at 125 cc/h. I am repeating serum sodium every [address] head negative. IV Reglan acute 6 hours. Tylenol as needed for headache. (2) Alcohol intoxication Qualifiers: Complication of substance-induced condition: uncomplicated Qualified Code(s ): F10.920 - Alcohol use, unspecified with intoxication, uncomplicated Is this a current diagnosis for this admission?: Yes Plan: Patient tells me that she was on rehabilitation and quit drinking for the last 2 weeks until yesterday that she drunk a half a gallon of vodka. Will keep close monitoring for alcohol withdrawal, will resume her lisinopril. Thiamine 500 mg IV x1. IV Ativan as needed for alcohol withdrawal. P.o. multivitamins and thiamine when she can tolerate p.o. intake. (3) Suicidal ideation Is this a current diagnosis for this admission?: Yes Plan: Patient tells me that she did not have any acute suicidal intention and that she was referring to her chronic use of alcohol that is going to kill her eventually. Dr. Davis from psych department has been consulted. (4) Leukocytosis Qualifiers: Leukocytosis type: unspecified Qualified Code(s): D72.829 - Elevated white blood cell count, unspecified Is this a current diagnosis for this admission?: Yes Plan: White blood cells 15 K, the patient does not have any signs or symptoms of infection, I believe this is related more with her severe dehydration. We will reassess CBC in the morning after hydration. I do not feel antibiotics are necessary now. (5) Chronic pancreatitis Is this a current diagnosis for this admission?: Yes Plan: Lipase 449, at the time of my evaluation she is now complaining of abdominal pain, she has had higher levels in the past. She is on IV fluids and n.p.o. - Time Time Spent: 50 to 70 Minutes - Inpatient Certification Based on my medical assessment, after consideration of the patient's comorbidities, presenting symptoms, or acuity I expect that the services needed warrant INPATIENT care.: Yes I certify that my determination is in accordance with my understanding of Medicare's requirements for reasonable and necessary INPATIENT services [42 CFR 412.3e].: Yes Medical Necessity: Risk of Complication if Not Cared For in Hospital
[2018-07-25] MEDS: METOCLOPRAMIDE HCL INJ/PF 10 MG/2 ML SDV IV SCH ×2 (00:04→07:03)
[2018-07-25] MEDS: LORAZEPAM INJ 2 MG/1 ML VIAL IV PRN ×6 (00:04→16:30)
[2018-07-25] MEDS ORDERED: TIZANIDINE HCL 4 MG TABLET PO PRN (00:30)
[2018-07-25 06:33] LABS: ABSOLUTE BASOPHILS # (AUTO) 0.1 10^3/uL (0.0-0.2); ABSOLUTE LYMPHOCYTES (AUTO) 0.7 10^3/uL (0.5-4.7); ABSOLUTE MONOCYTES (AUTO) 0.3 10^3/uL (0.1-1.4); ABSOLUTE NEUT (AUTO) 4.3 10^3/uL (1.7-8.2); BASOPHILS % (AUTO) 1.4 % (0-2); EOSINOPHILS % (AUTO) 0.3 % (0-6); HEMATOCRIT 25.5 % (36.0-47.0); HEMOGLOBIN 8.9 g/dL (12.0-15.5); LYMPHOCYTES % (AUTO) 12.5 % (13-45); MEAN CORPUSCULAR HEMOGLOBIN 23.8 pg (27.0-33.4); MEAN CORPUSCULAR VOLUME 68 fl (80-97); MONOCYTES % (AUTO) 4.8 % (3-13); PLATELET COUNT 552 10^3/uL (150-450); RED BLOOD COUNT 3.74 10^6/uL (3.72-5.28); RED CELL DISTRIBUTION WIDTH 20.8 % (11.5-14.0); TOTAL CELLS COUNTED % (AUTO) 100 %; WHITE BLOOD COUNT 5.3 10^3/uL (4.0-10.5)
[2018-07-25 06:39] LABS: ALANINE AMINOTRANSFERASE 32 U/L (9-52); ALBUMIN 4.1 g/dL (3.5-5.0); ALKALINE PHOSPHATASE 167 U/L (38-126); ANION GAP 15 (5-19); ASPARTATE AMINO TRANSFERASE 54 U/L (14-36); BILIRUBIN,DIRECT 0.3 mg/dL (0.0-0.4); BILIRUBIN,TOTAL 0.5 mg/dL (0.2-1.3); BLOOD UREA NITROGEN 4 mg/dL (7-20); CALCIUM 9.1 mg/dL (8.4-10.2); CARBON DIOXIDE 27 mmol/L (22-30); CHLORIDE 81 mmol/L (98-107); GLUCOSE 117 mg/dL (75-110); POTASSIUM 3.4 mmol/L (3.6-5.0); SODIUM 122.9 mmol/L (137-145); TOTAL PROTEIN 7.2 g/dL (6.3-8.2)
[2018-07-25] MEDS: ACETAMINOPHEN 325 MG TABLET PO PRN (07:03)
--- NOTE | 2018-07-25 07:23 | EKG REPORT ---
SEVERITY:- BORDERLINE ECG - SINUS RHYTHM BORDERLINE INFERIOR Q WAVES BORDERLINE PROLONGED QT INTERVAL : Confirmed by: Ferny Cody 25-Jul-2018 07:22:18
[2018-07-25] MEDS ORDERED: PANTOPRAZOLE SODIUM 40 MG VIAL IV ONE (08:00)
[2018-07-25] MEDS: FLUOXETINE HCL 20 MG CAPSULE PO SCH (10:16)
[2018-07-25] MEDS: OXCARBAZEPINE 150 MG TABLET PO SCH ×3 (10:16→20:02)
[2018-07-25] MEDS: LANSOPRAZOLE 30 MG TAB.RAP.DR PO SCH (10:17)
[2018-07-25] MEDS: LISINOPRIL 10 MG TABLET PO SCH (10:17)
[2018-07-25] MEDS: FLUTICASONE NASAL SPRAY 50 MCG/SPRY 120 SPRAY/16 GM NASL SCH ×2 (10:18→17:27)
[2018-07-25] MEDS: ENOXAPARIN SODIUM INJ 40 MG/0.4 ML DISP.SYRIN SUBCUT SCH (10:18)
--- NOTE | 2018-07-25 15:24 | PSYCHOLOGICAL NOTE ---
Psych Note - Psych Note Date seen by psych provider: 07/25/18 Time seen by psych provider: 11:10 Psych Note: Reason for Consult: substance abuse and suicidal ideation This is a 38-year-old female to the emergency department chief complaint of intoxication and possible suicidal ideation. Patient disclosed that she arrived to [facility] via EMS. She states that she called 911 herself because she could not get off the floor. Patient states "I do not want to "I have called 911 if I wanted to ." She continues state that she had been getting better and had just gotten back from rehab. She discloses that she was released from rehab and did not find out that her boyfriend had relapsed himself until the drive home. She states that they immediately took him to the [facility] on for his treatment. She continues disclose that that she had custody of her children which she always looks forward to. On Monday however her stomach started hurting so after the children left to go back to their father she started to "self medicate " and started drinking wine. She states that unfortunately the wind quickly turned to vodka. She disclosed that she remembers thinking to herself that with the first glass of wine would be okay as long as she had everything out of the house and was not drinking when her boyfriend came home from rehab. She discloses that she never stopped drinking and became scared when she literally could not get off the floor because she was so intoxicated. Patient is alert and orientated to person, place, time and circumstance. Mood is euthymic with congruent affect as evidenced by smiling and openly engaging with clinician. Patient denies suicidal and homicidal ideation. Delusions are absent behaviors congruent with an intact reality based presentation i.e. organized linear thought process. Eye contact was well-maintained. Conversational speech was within normal rate, tone and prosody. Intellectual abilities appear to be within the average range. Attention and concentration were good. Insight, judgment, impulse control are fair. No medication recommendations at this time 303.90 (F10.20) alcohol use disorder; severe Impression\\plan: Patient is cleared from acute psychiatric services. Patient no longer meets IVC criteria per [place] GS 122C. Patient is no longer under the influence. Patient denies suicidal and homicidal ideation. Patient reports that when EMS arrived she told him if she did not stop drinking she would end up killing herself. She states that this meant she would from the alcohol not that she would kill herself. She discloses that she is the one who called 911 for assistance. She discloses that she got out of rehab on of last week however then had to take her boyfriend to [facility] because he had relapsed while she was in treatment. She disclosed that she had her children over the weekend and admits to feeling depressed when they had to go home on Monday night. She reports she came down with a stomach virus Monday and thought drinking some wine would help herself and knew that if she drinks she would just have to stop before her boyfriend came home. She reports that the wind turned of vodka started falling and by the time she realized that she needed help, she could not even get off the floor on her own and called 911. Patient is recommended to follow-up with outpatient substance abuse treatment. Dr. Davis was consulted and the care management this patient; attending physician agreement with recommendations and disposition.
--- NOTE | 2018-07-25 16:29 | PDOC PROGRESS REPORT ---
Subjective Progress Note for:: 07/25/18 Subjective:: SHAKIRA MULLINS is a 38 year old female who presented to the emergency room with acute alcohol intoxication resulting in falls x2. She admits a 10-year history of chronic alcohol abuse/alcoholism consuming 1/2 gallon of vodka on a daily basis until 2 weeks ago when she joined and went through detoxification. 5 days prior to admission she started having nausea and vomiting and became unsteady on her feet. She had not consumed any food and very little in the way of fluids over that 5-day period of time. Approximately 24 hours prior to her admission she began drinking again and consumed 1/2 gallon of vodka. After her consumption she was having difficulty with ambulation and she fell twice striking her head on both occasions. She did not have loss of consciousness but had great difficulty getting up from her second fall in which she struck the back of her head and therefore called for emergency medical services. In the emergency room her head CAT scan was negative but she was noted to have severe electrolyte abnormalities with a serum sodium of 108.1. She was subsequently admitted to the ICU for correction of her electrolyte abnormalities with hypertonic saline as well as further evaluation and treatment. 07/25/2018: Shakira has responded well to treatment and is becoming much more alert. She asked to be able to go home but is noted to be somewhat confused and very poorly focused from mental status. She has a moderate tremor noted and is somewhat disoriented though she shows no evidence of hallucination or seizure activity. Patient will be observed closely for alcohol withdrawal symptoms and is going to be prophylactically placed on a Valium regimen. She will be given Valium 10 mg intravenously x1 to initiate therapy and from that point on she will receive either oral or intravenous Valium every 4 hours. Her CIWA scale status will be determined on a regular basis for episodes of monitoring her withdrawal symptoms. Reason For Visit: SEVERE HYPONATREMIA Physical Exam Vital Signs: Temp Pulse Resp BP Pulse Ox 100.6 F H 101 H 24 H 122/79 99 07/25/18 07:51 07/25/18 06:00 07/25/18 06:00 07/25/18 06:00 07/25/18 06:00 Intake & Output 07/23/18 07/24/18 07/25/18 23:59 23:59 23:59 Intake Total 2405 200 Output Total 1980 Balance 2405 -1780 Weight 71.5 kg 70.6 kg General appearance: PRESENT: no acute distress, cooperative, other - Mildly confused and poorly focused Head exam: PRESENT: atraumatic, normocephalic Eye exam: PRESENT: conjunctiva pink, EOMI Ear exam: PRESENT: normal external ear exam - No discharge or bleeding noted Mouth exam: PRESENT: neck supple, tongue midline Neck exam: PRESENT: other - Trachea is midline. Thyroid shows no tenderness or masses. Respiratory exam: PRESENT: clear to auscultation brenda, symmetrical, unlabored Cardiovascular exam: PRESENT: RRR, other - No murmurs clicks gallops or rubs are noted. Vascular exam: PRESENT: normal capillary refill, other - No cyanosis or pallor is present GI/Abdominal exam: PRESENT: normal bowel sounds, soft Rectal exam: PRESENT: deferred Extremities exam: PRESENT: other - No clubbing cyanosis or edema is noted Musculoskeletal exam: PRESENT: full ROM, normal inspection Neurological exam: PRESENT: altered - Mildly confused and poorly focused, oriented to person, CN II-XII grossly intact Psychiatric exam: PRESENT: other - Unable to accurately assess due to mildly confused or slightly obtunded state with poor mental focus. Skin exam: PRESENT: dry, intact, warm Results Laboratory Results: 07/25/18 04:20 07/25/18 04:20 07/24/18 07/24/18 07/25/18 22:29 22:29 04:20 WBC 5.3 RBC 3.74 Hgb 8.9 L Hct 25.5 L MCV 68 L MCH 23.8 L MCHC 35.0 RDW 20.8 H Plt Count 552 H Seg Neutrophils % 81.0 H Lymphocytes % 12.5 L Monocytes % 4.8 Eosinophils % 0.3 Basophils % 1.4 Absolute Neutrophils 4.3 Absolute Lymphocytes 0.7 Absolute Monocytes 0.3 Absolute Eosinophils 0.0 Absolute Basophils 0.1 Sodium 118.8 L* Potassium 3.9 D Chloride 75 L Carbon Dioxide 25 Anion Gap 19 BUN 4 L Creatinine 0.39 L Est GFR ( Amer) > 60 Est GFR (Non-Af Amer) > 60 Glucose 95 Serum Osmolality 234 L Calcium 8.6 Magnesium Total Bilirubin AST ALT Alkaline Phosphatase Total Protein Albumin Lipase 07/25/18 04:20 WBC RBC Hgb Hct MCV MCH MCHC RDW Plt Count Seg Neutrophils % Lymphocytes % Monocytes % Eosinophils % Basophils % Absolute Neutrophils Absolute Lymphocytes Absolute Monocytes Absolute Eosinophils Absolute Basophils Sodium 122.9 L Potassium 3.4 L Chloride 81 L Carbon Dioxide 27 Anion Gap 15 BUN 4 L Creatinine 0.43 L Est GFR ( Amer) > 60 Est GFR (Non-Af Amer) > 60 Glucose 117 H Serum Osmolality Calcium 9.1 Magnesium 2.1 Total Bilirubin 0.5 AST 54 H ALT 32 Alkaline Phosphatase 167 H Total Protein 7.2 Albumin 4.1 Lipase 456.0 H Impressions: Head CT 07/24/18 17:07 IMPRESSION: No acute intracranial findings. EVIDENCE OF ACUTE STROKE: NO. Assessment & Plan - Diagnosis (1) Acute hyponatremia Is this a current diagnosis for this admission?: Yes Plan: Patient was admitted to the ICU and hypertonic saline administration was undertaken at the direction of Dr. Centeno. Patient's sodium rapidly corrected to approximately 120 from a level of 108.1. The hypertonic saline was discontinued and the patient was started back on normal saline for continued hydration and correction of her hyponatremia. Serial metabolic profiles will be evaluated to determine efficacy of therapy. (2) Alcohol intoxication Qualifiers: Complication of substance-induced condition: uncomplicated Qualified Code(s ): F10.920 - Alcohol use, unspecified with intoxication, uncomplicated Is this a current diagnosis for this admission?: Yes Plan: Initial blood alcohol was 180 which is definitely a level of alcohol intoxication. Given the pharmacokinetics of alcohol patient is now sober and her acute intoxication has resolved. She will need close observation for alcohol withdrawal syndrome. (3) Chronic pancreatitis Qualifiers: Pancreatitis type: alcohol induced Qualified Code(s): K86.0 - Alcohol- induced chronic pancreatitis Is this a current diagnosis for this admission?: Yes Plan: Shakira has a known history of chronic pancreatitis and she is noted to have a mild elevation of her lipase at the present time which may represent an early acute exacerbation of her chronic pancreatitis or may just be reflective of her recent alcohol intake. Patient will be observed closely for clinical signs and symptoms of acute pancreatitis and her serum lipase and amylase will be followed on a serial basis. (4) Tobacco abuse Is this a current diagnosis for this admission?: Yes Plan: Patient will be offered a daily nicotine replacement patch (NicoDerm) if she wishes to use it during her hospital course. - Time Time Spent with patient: 15-24 minutes Medications reviewed and adjusted accordingly: Yes - Inpatient Certification Based on my medical assessment, after consideration of the patient's comorbidities, presenting symptoms, or acuity I expect that the services needed warrant INPATIENT care.: Yes I certify that my determination is in accordance with my understanding of Medicare's requirements for reasonable and necessary INPATIENT services [42 CFR 412.3e].: Yes Medical Necessity: Significant Comorbidiites Make Outpatient Treatment Too Risky , Need Close Monitoring Due to Risk of Patient Decompensation, Need For IV Fluids, Need For Continuous Telemetry Monitoring, Need for Neurological Checks, Risk of Complication if Not Cared For in Hospital
[2018-07-25] MEDS ORDERED: DIAZEPAM INJ 10 MG/2 ML DISP.SYRIN IV PRN (16:30)
[2018-07-25] MEDS ORDERED: NORMAL SALINE 1000 ML 1,000 ML IV PRN (16:37)
[2018-07-25] MEDS ORDERED: DIAZEPAM INJ 10 MG/2 ML DISP.SYRIN IV ONE (16:45)
[2018-07-25] MEDS ORDERED: DIAZEPAM 5 MG TABLET ONE (20:00)
[2018-07-25] MEDS: DIAZEPAM 5 MG TABLET PO SCH (20:01)
[2018-07-25] MEDS: TRAZODONE HCL 50 MG TABLET PO SCH (22:17)
[2018-07-25] MEDS: OLANZAPINE 5 MG TABLET PO SCH (22:18)
[2018-07-26] MEDS: DIAZEPAM 5 MG TABLET PO SCH ×6 (02:54→21:47)
[2018-07-26] MEDS: THIAMINE HCL 500 MG in NORMAL SALINE 250 ML IV SCH (03:01)
[2018-07-26] MEDS: NICOTINE 21 MG/24 HR PATCH.TD24 TD SCH ×2 (03:02→09:55)
[2018-07-26 04:14] LABS: VENOUS BLOOD BASE EXCESS 2.7 mmol/L; VENOUS BLOOD HCO3 26.5 mmol/L (20-32); VENOUS BLOOD PCO2 37.5 mmHg (35-63); VENOUS BLOOD PH 7.47 (7.30-7.42)
[2018-07-26 04:16] LABS: HEMATOCRIT 21.8 % (36.0-47.0); MEAN CORPUSCULAR HEMOGLOBIN 23.5 pg (27.0-33.4); MEAN CORPUSCULAR HGB CONC 33.9 g/dL (32.0-36.0); MEAN CORPUSCULAR VOLUME 69 fl (80-97); PLATELET COUNT 395 10^3/uL (150-450); RED BLOOD COUNT 3.14 10^6/uL (3.72-5.28); RED CELL DISTRIBUTION WIDTH 20.5 % (11.5-14.0); WHITE BLOOD COUNT 6.4 10^3/uL (4.0-10.5)
[2018-07-26 04:18] LABS: HEMOGLOBIN 7.4 g/dL (12.0-15.5)
[2018-07-26 04:31] LABS: AMYLASE 42 U/L (30-110); BLOOD UREA NITROGEN 12 mg/dL (7-20); CARBON DIOXIDE 24 mmol/L (22-30); CHLORIDE 82 mmol/L (98-107); GLUCOSE 97 mg/dL (75-110); LIPASE 140.4 U/L (23-300)
[2018-07-26 04:37] LABS: ANION GAP 14 (5-19)
[2018-07-26 04:44] LABS: SODIUM 120.1 mmol/L (137-145)
[2018-07-26 05:18] LABS: ABSOLUTE EOSINOPHILS # (AUTO) 0.1 10^3/uL (0.0-0.6); ABSOLUTE LYMPHOCYTES (AUTO) 1.1 10^3/uL (0.5-4.7); ABSOLUTE MONOCYTES (AUTO) 0.2 10^3/uL (0.1-1.4); ABSOLUTE NEUT (AUTO) 5.1 10^3/uL (1.7-8.2); BASOPHILS % (AUTO) 0.7 % (0-2); EOSINOPHILS % (AUTO) 1.9 % (0-6); HEMATOCRIT 24.8 % (36.0-47.0); HEMOGLOBIN 8.4 g/dL (12.0-15.5); LYMPHOCYTES % (AUTO) 16.4 % (13-45); MEAN CORPUSCULAR HEMOGLOBIN 23.6 pg (27.0-33.4); MEAN CORPUSCULAR HGB CONC 33.7 g/dL (32.0-36.0); MEAN CORPUSCULAR VOLUME 70 fl (80-97); MONOCYTES % (AUTO) 2.6 % (3-13); PLATELET COUNT 467 10^3/uL (150-450); RED BLOOD COUNT 3.55 10^6/uL (3.72-5.28); SEGMENTED NEUTROPHILS % (AUTO) 78.4 % (42-78); TOTAL CELLS COUNTED % (AUTO) 100 %; WHITE BLOOD COUNT 6.5 10^3/uL (4.0-10.5)
[2018-07-26] MEDS ORDERED: POTASSIUM CHLORIDE 10 MEQ CAPSULE.ER PO ONE (06:00)
[2018-07-26] MEDS: ACETAMINOPHEN 325 MG TABLET PO PRN (06:08)
[2018-07-26] MEDS: POTASSIUM CHLORIDE 20 MEQ/50 ML RTU IV SCH ×2 (07:00→11:27)
[2018-07-26] MEDS: LANSOPRAZOLE 30 MG TAB.RAP.DR PO SCH (09:54)
[2018-07-26] MEDS: FLUOXETINE HCL 20 MG CAPSULE PO SCH (09:54)
[2018-07-26] MEDS: ENOXAPARIN SODIUM INJ 40 MG/0.4 ML DISP.SYRIN SUBCUT SCH (09:56)
[2018-07-26] MEDS: FLUTICASONE NASAL SPRAY 50 MCG/SPRY 120 SPRAY/16 GM NASL SCH ×2 (09:56→17:27)
[2018-07-26] MEDS: OXCARBAZEPINE 150 MG TABLET PO SCH ×3 (09:56→21:54)
[2018-07-26] MEDS: LISINOPRIL 10 MG TABLET PO SCH (09:57)
[2018-07-26] MEDS ORDERED: POTASSIUM CHLORIDE 10 MEQ CAPSULE.ER PO SCH (10:00)
--- NOTE | 2018-07-26 15:01 | Physician Advisory Note ---
Physician Advisor ProgressNote .: [facility] I have reviewed the medical record for this patient. Physician Advisor Statement: Please consider documenting, if you agree: 1. "EtOH dependence and abuse w/ac intox"? Or 'just' "ETOH abuse with ac intox "? 2. ? "suspected protein-calorie malnutrition [state mild/mod/ sev] with BMI 23.2, ____[?appetite loss ]" & state all supporting evidence you can: A. Loss of subcut fat is mild/mod/sev, B. Loss of muscle mass is mild/mod/sev C. Manager Plan strength noticeably reduced (or not) D. Amt weight lost over the past week/mo/3mo/6mo/year (note usual wt) E. Intake <50% of estimated energy requirements for 5-7 days, or <75% of estimated energy requirements for 1+ mo.s? & clinical importance such as: A. safety specialist consult ordered, B. modified diet/supplements ordered, C. additional labs ordered, D. prolonged wound healing time, E. delayed infxn clearance] Thanks! CK
--- NOTE | 2018-07-26 16:28 | RADIOLOGY REPORT (SQ) ---
EXAM DESCRIPTION: CLAVICLE LEFT COMPLETED DATE/TIME: 07/26/2018 3:04 pm REASON FOR STUDY: Multiple falls prior to admission COMPARISON: None. NUMBER OF VIEWS: Two views. TECHNIQUE: Frontal and angled images were acquired of the left clavicle. LIMITATIONS: None. FINDINGS: MINERALIZATION: Normal. BONES: Old AC joint separation. No acute fracture or dislocation. No worrisome bone lesions. SOFT TISSUES: No obvious swelling or foreign body. OTHER: No other significant finding. IMPRESSION: NO RADIOGRAPHIC EVIDENCE OF ACUTE INJURY. TECHNICAL DOCUMENTATION: JOB ID: [id number] [employer]- All Rights Reserved Reading location - IP/workstation name: [email or web address]
--- NOTE | 2018-07-26 16:31 | RADIOLOGY REPORT (SQ) ---
EXAM DESCRIPTION: HAND LEFT 3 VIEWS COMPLETED DATE/TIME: 07/26/2018 3:04 pm REASON FOR STUDY: Multiple falls prior to admission COMPARISON: None. EXAM PARAMETERS: NUMBER OF VIEWS: Three views. TECHNIQUE: AP, lateral and oblique radiographic images acquired of the left hand. LIMITATIONS: None. FINDINGS: MINERALIZATION: Normal. BONES: No acute fracture or dislocation. No worrisome bone lesions. JOINTS: No effusions. SOFT TISSUES: No soft tissue swelling. No foreign body. OTHER: No other significant finding. IMPRESSION: NEGATIVE STUDY OF THE LEFT HAND. NO RADIOGRAPHIC EVIDENCE OF ACUTE INJURY. TECHNICAL DOCUMENTATION: JOB ID: [id number] [employer]- All Rights Reserved Reading location - IP/workstation name: [email or web address]
--- NOTE | 2018-07-26 16:32 | RADIOLOGY REPORT (SQ) ---
EXAM DESCRIPTION: SHOULDER LEFT 2 OR MORE VIEWS COMPLETED DATE/TIME: 07/26/2018 3:04 pm REASON FOR STUDY: Multiple falls prior to admission COMPARISON: None. NUMBER OF VIEWS: Three views. TECHNIQUE: Internal rotation, external rotation, and Y view images acquired of the left shoulder. LIMITATIONS: None. FINDINGS: MINERALIZATION: Normal. BONES: Bony overgrowth of the distal clavicle. No acute osseous abnormality. JOINTS: No dislocation. VISUALIZED LUNGS AND RIBS: No pneumothorax. No rib fracture. SOFT TISSUES: No radiopaque foreign body. OTHER: No other significant finding. IMPRESSION: NEGATIVE STUDY OF THE LEFT SHOULDER. NO RADIOGRAPHIC EVIDENCE OF ACUTE INJURY. TECHNICAL DOCUMENTATION: JOB ID: [id number] [email or web address]- All Rights Reserved Reading location - IP/workstation name: [email or web address]
[2018-07-26] MEDS: POTASSIUM CHLORIDE 10 MEQ CAPSULE.ER PO SCH (17:25)
[2018-07-26] MEDS: MULTIVITAMIN TABLET PO SCH (17:26)
[2018-07-26] MEDS: SODIUM BICARBONATE 650 MG TABLET PO SCH ×2 (17:26→21:49)
[2018-07-26] MEDS: THIAMINE HCL 100 MG TABLET PO SCH (17:26)
[2018-07-26] MEDS ORDERED: SODIUM BICARBONATE 650 MG TABLET PO SCH (18:00)
--- NOTE | 2018-07-26 18:41 | PDOC PROGRESS REPORT ---
Subjective Progress Note for:: 07/26/18 Subjective:: SHAKIRA MULLINS is a 38 year old female who presented to the emergency room with acute alcohol intoxication resulting in falls x2. She admits a 10-year history of chronic alcohol abuse/alcoholism consuming 1/2 gallon of vodka on a daily basis until 2 weeks ago when she joined and went through detoxification. 5 days prior to admission she started having nausea and vomiting and became unsteady on her feet. She had not consumed any food and very little in the way of fluids over that 5-day period of time. Approximately 24 hours prior to her admission she began drinking again and consumed 1/2 gallon of vodka. After her consumption she was having difficulty with ambulation and she fell twice striking her head on both occasions. She did not have loss of consciousness but had great difficulty getting up from her second fall in which she struck the back of her head and therefore called for emergency medical services. In the emergency room her head CAT scan was negative but she was noted to have severe electrolyte abnormalities with a serum sodium of 108.1. She was subsequently admitted to the ICU for correction of her electrolyte abnormalities with hypertonic saline as well as further evaluation and treatment. 07/25/2018: Shakira has responded well to treatment and is becoming much more alert. She asked to be able to go home but is noted to be somewhat confused and very poorly focused from mental status. She has a moderate tremor noted and is somewhat disoriented though she shows no evidence of hallucination or seizure activity. Patient will be observed closely for alcohol withdrawal symptoms and is going to be prophylactically placed on a Valium regimen. She will be given Valium 10 mg intravenously x1 to initiate therapy and from that point on she will receive either oral or intravenous Valium every 4 hours. Her CIWA scale status will be determined on a regular basis for episodes of monitoring her withdrawal symptoms. 07/26/2018: Shakira continues to improve clinically however she is complaining of pain in her left hand left shoulder and left clavicle area today and thinks that she may have broken something when she fell so many times before coming to the hospital. X-rays were obtained and the left shoulder, left hand and left clavicle plain film series were all negative for acute fracture or dislocation. We have initiated oral therapy for all of her electrolyte replacement at her request if she wishes to be discharged as soon as possible. We have discussed discharging her tomorrow if she tolerates oral therapy tonight there is no degradation in her sodium and potassium levels by morning. She will use ibuprofen as needed for pain and she will be continued on the diazepam acute alcohol withdrawal schedule that was initiated yesterday. Reason For Visit: SEVERE HYPONATREMIA Physical Exam Vital Signs: Temp Pulse Resp BP Pulse Ox 98.4 F 73 17 95/62 L 98 07/26/18 13:00 07/26/18 10:00 07/26/18 18:00 07/26/18 17:52 07/26/18 18:00 Intake & Output 07/24/18 07/25/18 07/26/18 23:59 23:59 23:59 Intake Total 2405 1792 540 Output Total 2630 4235 Balance 6527 -358 -6609 Weight 71.5 kg 70.6 kg 71.2 kg General appearance: PRESENT: cooperative, mild distress - Secondary to pain in her left shoulder left clavicle and left hand. Head exam: PRESENT: atraumatic, normocephalic Eye exam: PRESENT: conjunctiva pink, EOMI Ear exam: PRESENT: normal external ear exam. ABSENT: drainage Mouth exam: PRESENT: neck supple, tongue midline Neck exam: ABSENT: thyromegaly, tracheal deviation Respiratory exam: PRESENT: clear to auscultation brenda, symmetrical, unlabored Cardiovascular exam: PRESENT: RRR. ABSENT: clicks, gallop, rubs Vascular exam: PRESENT: normal capillary refill. ABSENT: pallor GI/Abdominal exam: PRESENT: normal bowel sounds, soft Rectal exam: PRESENT: deferred Extremities exam: PRESENT: tenderness - Patient complains of subjective pain in the left clavicle left shoulder and left hand although there are no clinical changes and no appreciable reduction in the patient's range of motion when she is observed unaware of the observation.. ABSENT: joint swelling, pedal edema Musculoskeletal exam: ABSENT: deformity, dislocation Neurological exam: PRESENT: alert, oriented to person, oriented to place, oriented to time, oriented to situation, CN II-XII grossly intact. ABSENT: motor sensory deficit Psychiatric exam: PRESENT: depressed, flat affect Skin exam: PRESENT: dry, intact - [id number], warm Results Laboratory Results: 07/26/18 04:50 07/26/18 03:59 07/26/18 07/26/18 07/26/18 03:59 03:59 03:59 WBC 6.4 RBC 3.14 L Hgb 7.4 L Hct 21.8 L MCV 69 L MCH 23.5 L MCHC 33.9 RDW 20.5 H Plt Count 395 Seg Neutrophils % Lymphocytes % Monocytes % Eosinophils % Basophils % Absolute Neutrophils Absolute Lymphocytes Absolute Monocytes Absolute Eosinophils Absolute Basophils VBG pH VBG pCO2 VBG HCO3 VBG Base Excess Sodium 120.1 L* Potassium 3.0 L* Chloride 82 L Carbon Dioxide 24 Anion Gap 14 BUN 12 Creatinine 0.86 Est GFR ( Amer) > 60 Est GFR (Non-Af Amer) > 60 Glucose 97 Calcium 8.0 L Magnesium 1.9 Amylase 42 Lipase 140.4 TSH 1.52 07/26/18 07/26/18 03:59 04:50 WBC 6.5 RBC 3.55 L Hgb 8.4 L Hct 24.8 L MCV 70 L MCH 23.6 L MCHC 33.7 RDW 21.0 H Plt Count 467 H Seg Neutrophils % 78.4 H Lymphocytes % 16.4 Monocytes % 2.6 L Eosinophils % 1.9 Basophils % 0.7 Absolute Neutrophils 5.1 Absolute Lymphocytes 1.1 Absolute Monocytes 0.2 Absolute Eosinophils 0.1 Absolute Basophils 0.0 VBG pH 7.47 H VBG pCO2 37.5 VBG HCO3 26.5 VBG Base Excess 2.7 Sodium Potassium Chloride Carbon Dioxide Anion Gap BUN Creatinine Est GFR ( Amer) Est GFR (Non-Af Amer) Glucose Calcium Magnesium Amylase Lipase TSH Impressions: Head CT 07/24/18 17:07 IMPRESSION: No acute intracranial findings. EVIDENCE OF ACUTE STROKE: NO. Clavicle X-Ray 07/26/18 00:00 IMPRESSION: NO RADIOGRAPHIC EVIDENCE OF ACUTE INJURY. Hand X-Ray 07/26/18 00:00 IMPRESSION: NEGATIVE STUDY OF THE LEFT HAND. NO RADIOGRAPHIC EVIDENCE OF ACUTE INJURY. Shoulder X-Ray 07/26/18 00:00 IMPRESSION: NEGATIVE STUDY OF THE LEFT SHOULDER. NO RADIOGRAPHIC EVIDENCE OF ACUTE INJURY. Assessment & Plan - Diagnosis (1) Acute hyponatremia Is this a current diagnosis for this admission?: Yes Plan: Patient was admitted to the ICU and hypertonic saline administration was undertaken at the direction of Dr. Centeno. Patient's sodium rapidly corrected to approximately 120 from a level of 108.1. The hypertonic saline was discontinued and the patient was started back on normal saline for continued hydration and correction of her hyponatremia. Serial metabolic profiles will be evaluated to determine efficacy of therapy. 07/26/2018: Patient's serum sodium is 120 today and this is down slightly from 122. As a result she will have her sodium intake increase by adding 1300 mg of sodium bicarbonate PC and at bedtime. IV normal saline is discontinued. Patient was also noted to have developed hypokalemia while getting fluid therapy. She will be taking 40 mEq of potassium chloride after each meal as a supplement to replete her potassium stores. Her current serum potassium was 3.0. Electrolytes will be rechecked in the morning. (2) Alcohol intoxication Qualifiers: Complication of substance-induced condition: uncomplicated Qualified Code(s ): F10.920 - Alcohol use, unspecified with intoxication, uncomplicated Is this a current diagnosis for this admission?: Yes Plan: Initial blood alcohol was 180 which is definitely a level of alcohol intoxication. Given the pharmacokinetics of alcohol patient is now sober and her acute intoxication has resolved. She will need close observation for alcohol withdrawal syndrome. 07/26/2018: Patient has chronic alcohol dependence with acute intoxication on admission that has now resolved in terms of her acute intoxication. Her chronic alcohol dependence remains as an underlying problem. I have counseled her on continuing to seek help and assistance with this following her program with AA and Narcotics Anonymous. (3) Chronic pancreatitis Qualifiers: Pancreatitis type: alcohol induced Qualified Code(s): K86.0 - Alcohol- induced chronic pancreatitis Is this a current diagnosis for this admission?: Yes Plan: Shakira has a known history of chronic pancreatitis and she is noted to have a mild elevation of her lipase at the present time which may represent an early acute exacerbation of her chronic pancreatitis or may just be reflective of her recent alcohol intake. Patient will be observed closely for clinical signs and symptoms of acute pancreatitis and her serum lipase and amylase will be followed on a serial basis. 07/26/2018: Patient's amylase and lipase are normal on today's evaluation. Patient most likely did not have acute pancreatitis but did have an acute elevation of her pancreatic enzymes due to her alcohol use in the face of her chronic pancreatitis. (4) Tobacco abuse Is this a current diagnosis for this admission?: Yes Plan: Patient will be offered a daily nicotine replacement patch (NicoDerm) if she wishes to use it during her hospital course. She has been advised to discontinue smoking and smoking cessation has been counseled and thoroughly discussed however she is not interested in discontinuing smoking at this time. (5) Alcohol dependence with withdrawal with complication Is this a current diagnosis for this admission?: Yes Plan: Shakira was noted to have tremor and confusion on yesterday's evaluation and was started on diazepam oral and IV therapy to control her withdrawal symptoms. She has been doing well on her current diazepam regiment with no further tremulousness and a markedly improved level of mental function without confusion or lack of focus. She will be continued on her diazepam regiment until discharge. - Time Time Spent with patient: 15-24 minutes Smoking Cessation Education: 3 to 10 minutes Medications reviewed and adjusted accordingly: Yes Anticipated discharge: Home Within: within 24 hours
[2018-07-26] MEDS: TRAZODONE HCL 50 MG TABLET PO SCH (21:47)
[2018-07-26] MEDS: OLANZAPINE 5 MG TABLET PO SCH (21:47)
[2018-07-26] MEDS: IBUPROFEN 800 MG TABLET PO PRN (21:48)
[2018-07-27] MEDS: DIAZEPAM 5 MG TABLET PO SCH ×5 (03:56→18:18)
[2018-07-27 04:11] LABS: HEMATOCRIT 22.6 % (36.0-47.0); MEAN CORPUSCULAR HEMOGLOBIN 23.2 pg (27.0-33.4); MEAN CORPUSCULAR HGB CONC 32.6 g/dL (32.0-36.0); MEAN CORPUSCULAR VOLUME 71 fl (80-97); PLATELET COUNT 430 10^3/uL (150-450); RED BLOOD COUNT 3.18 10^6/uL (3.72-5.28); RED CELL DISTRIBUTION WIDTH 21.5 % (11.5-14.0); WHITE BLOOD COUNT 7.1 10^3/uL (4.0-10.5)
[2018-07-27 04:14] LABS: HEMOGLOBIN 7.4 g/dL (12.0-15.5)
[2018-07-27 04:23] LABS: AMYLASE 61 U/L (30-110); ANION GAP 12 (5-19); BLOOD UREA NITROGEN 6 mg/dL (7-20); CALCIUM 8.7 mg/dL (8.4-10.2); CARBON DIOXIDE 23 mmol/L (22-30); CHLORIDE 95 mmol/L (98-107); GLUCOSE 139 mg/dL (75-110); LIPASE 384.9 U/L (23-300); SODIUM 130.2 mmol/L (137-145)
[2018-07-27 04:34] LABS: POTASSIUM 4.1 mmol/L (3.6-5.0)
[2018-07-27] MEDS: LANSOPRAZOLE 30 MG TAB.RAP.DR PO SCH (06:27)
[2018-07-27 06:49] LABS: ABSOLUTE EOSINOPHILS # (AUTO) 0.2 10^3/uL (0.0-0.6); ABSOLUTE LYMPHOCYTES (AUTO) 1.7 10^3/uL (0.5-4.7); ABSOLUTE MONOCYTES (AUTO) 0.2 10^3/uL (0.1-1.4); ABSOLUTE NEUT (AUTO) 4.3 10^3/uL (1.7-8.2); BASOPHILS % (AUTO) 0.7 % (0-2); EOSINOPHILS % (AUTO) 2.6 % (0-6); HEMATOCRIT 21.6 % (36.0-47.0); LYMPHOCYTES % (AUTO) 26.5 % (13-45); MEAN CORPUSCULAR HEMOGLOBIN 23.8 pg (27.0-33.4); MEAN CORPUSCULAR HGB CONC 33.6 g/dL (32.0-36.0); MEAN CORPUSCULAR VOLUME 71 fl (80-97); MONOCYTES % (AUTO) 3.8 % (3-13); PLATELET COUNT 433 10^3/uL (150-450); RED BLOOD COUNT 3.05 10^6/uL (3.72-5.28); RED CELL DISTRIBUTION WIDTH 21.5 % (11.5-14.0); SEGMENTED NEUTROPHILS % (AUTO) 66.4 % (42-78); TOTAL CELLS COUNTED % (AUTO) 100 %; WHITE BLOOD COUNT 6.4 10^3/uL (4.0-10.5)
[2018-07-27 06:58] LABS: HEMOGLOBIN 7.3 g/dL (12.0-15.5)
[2018-07-27] MEDS: LISINOPRIL 10 MG TABLET PO SCH (08:59)
[2018-07-27] MEDS: POTASSIUM CHLORIDE 10 MEQ CAPSULE.ER PO SCH (08:59)
[2018-07-27] MEDS: THIAMINE HCL 100 MG TABLET PO SCH (08:59)
[2018-07-27] MEDS: SODIUM BICARBONATE 650 MG TABLET PO SCH ×4 (08:59→22:28)
[2018-07-27] MEDS: OXCARBAZEPINE 150 MG TABLET PO SCH ×3 (09:00→22:27)
[2018-07-27] MEDS: FLUOXETINE HCL 20 MG CAPSULE PO SCH (09:00)
[2018-07-27] MEDS: MULTIVITAMIN TABLET PO SCH (09:00)
[2018-07-27] MEDS: NICOTINE 21 MG/24 HR PATCH.TD24 TD SCH (09:01)
[2018-07-27] MEDS: FLUTICASONE NASAL SPRAY 50 MCG/SPRY 120 SPRAY/16 GM NASL SCH ×2 (09:01→18:17)
[2018-07-27] MEDS: ENOXAPARIN SODIUM INJ 40 MG/0.4 ML DISP.SYRIN SUBCUT SCH (09:01)
[2018-07-27] MEDS: IBUPROFEN 800 MG TABLET PO PRN ×2 (09:02→14:16)
[2018-07-27] MEDS ORDERED: NORMAL SALINE 250 ML IV PRN (11:58)
--- NOTE | 2018-07-27 12:13 | PDOC PROGRESS REPORT ---
Subjective Progress Note for:: 07/27/18 Subjective:: SHAKIRA MULLINS is a 38 year old female who presented to the emergency room with acute alcohol intoxication resulting in falls x2. She admits a 10-year history of chronic alcohol abuse/alcoholism consuming 1/2 gallon of vodka on a daily basis until 2 weeks ago when she joined and went through detoxification. 5 days prior to admission she started having nausea and vomiting and became unsteady on her feet. She had not consumed any food and very little in the way of fluids over that 5-day period of time. Approximately 24 hours prior to her admission she began drinking again and consumed 1/2 gallon of vodka. After her consumption she was having difficulty with ambulation and she fell twice striking her head on both occasions. She did not have loss of consciousness but had great difficulty getting up from her second fall in which she struck the back of her head and therefore called for emergency medical services. In the emergency room her head CAT scan was negative but she was noted to have severe electrolyte abnormalities with a serum sodium of 108.1. She was subsequently admitted to the ICU for correction of her electrolyte abnormalities with hypertonic saline as well as further evaluation and treatment. 07/25/2018: Shakira has responded well to treatment and is becoming much more alert. She asked to be able to go home but is noted to be somewhat confused and very poorly focused from mental status. She has a moderate tremor noted and is somewhat disoriented though she shows no evidence of hallucination or seizure activity. Patient will be observed closely for alcohol withdrawal symptoms and is going to be prophylactically placed on a Valium regimen. She will be given Valium 10 mg intravenously x1 to initiate therapy and from that point on she will receive either oral or intravenous Valium every 4 hours. Her CIWA scale status will be determined on a regular basis for episodes of monitoring her withdrawal symptoms. 07/26/2018: Shakira continues to improve clinically however she is complaining of pain in her left hand left shoulder and left clavicle area today and thinks that she may have broken something when she fell so many times before coming to the hospital. X-rays were obtained and the left shoulder, left hand and left clavicle plain film series were all negative for acute fracture or dislocation. We have initiated oral therapy for all of her electrolyte replacement at her request if she wishes to be discharged as soon as possible. We have discussed discharging her tomorrow if she tolerates oral therapy tonight there is no degradation in her sodium and potassium levels by morning. She will use ibuprofen as needed for pain and she will be continued on the diazepam acute alcohol withdrawal schedule that was initiated yesterday. 07/27/2018: Patient states that she feels like she is doing better and initially this morning she thought she would like to go home today however she needs to have her Bernabe catheter out and she needs to be more active. She agrees to doing this she also agrees to receiving a unit of packed red blood cells as her hemoglobin has been in the sub-8.0 category 2 days in a row now. Additionally her sodium is now up to 130 and her potassium is 4.1 therefore her oral potassium supplementation will be decreased today and her potassium will be rechecked tomorrow. If it continues to be adequate her discharge dosing will be substantially reduced. She understands the need to become more active today and is looking forward to probably going home tomorrow. Reason For Visit: SEVERE HYPONATREMIA Physical Exam Vital Signs: Temp Pulse Resp BP Pulse Ox 98.1 F 85 20 105/60 100 07/27/18 11:00 07/27/18 08:48 07/27/18 11:20 07/27/18 11:20 07/27/18 11:20 Intake & Output 07/25/18 07/26/18 07/27/18 23:59 23:59 23:59 Intake Total 1792 1140 550 Output Total 2630 5210 1150 Balance -838 -4070 -600 Weight 70.6 kg 71.2 kg 73.7 kg General appearance: PRESENT: no acute distress, cooperative Head exam: PRESENT: atraumatic, normocephalic Eye exam: PRESENT: conjunctiva pink, EOMI Ear exam: PRESENT: normal external ear exam. ABSENT: bleeding, drainage Mouth exam: PRESENT: neck supple, tongue midline Neck exam: ABSENT: thyromegaly, tracheal deviation Respiratory exam: PRESENT: clear to auscultation brenda, symmetrical, unlabored Cardiovascular exam: PRESENT: RRR, other - No murmurs clicks gallops or rubs Vascular exam: PRESENT: normal capillary refill. ABSENT: pallor GI/Abdominal exam: PRESENT: normal bowel sounds, soft - [id number] Rectal exam: PRESENT: deferred Extremities exam: ABSENT: joint swelling, pedal edema Musculoskeletal exam: PRESENT: full ROM, normal inspection Neurological exam: PRESENT: alert, oriented to person, oriented to place, oriented to time, oriented to situation Psychiatric exam: PRESENT: appropriate affect, normal mood Skin exam: ABSENT: jaundice, rash, urticaria Results Laboratory Results: 07/27/18 05:50 07/27/18 03:51 07/27/18 07/27/18 07/27/18 03:51 03:51 05:50 WBC 7.1 6.4 RBC 3.18 L 3.05 L Hgb 7.4 L 7.3 L Hct 22.6 L 21.6 L MCV 71 L 71 L MCH 23.2 L 23.8 L MCHC 32.6 33.6 RDW 21.5 H 21.5 H Plt Count 430 433 Seg Neutrophils % 66.4 Lymphocytes % 26.5 Monocytes % 3.8 Eosinophils % 2.6 Basophils % 0.7 Absolute Neutrophils 4.3 Absolute Lymphocytes 1.7 Absolute Monocytes 0.2 Absolute Eosinophils 0.2 Absolute Basophils 0.0 Sodium 130.2 L Potassium 4.1 D Chloride 95 L Carbon Dioxide 23 Anion Gap 12 BUN 6 L Creatinine 0.59 Est GFR ( Amer) > 60 Est GFR (Non-Af Amer) > 60 Glucose 139 H Calcium 8.7 Magnesium 1.9 Amylase 61 Lipase 384.9 H Impressions: Head CT 07/24/18 17:07 IMPRESSION: No acute intracranial findings. EVIDENCE OF ACUTE STROKE: NO. Clavicle X-Ray 07/26/18 00:00 IMPRESSION: NO RADIOGRAPHIC EVIDENCE OF ACUTE INJURY. Hand X-Ray 07/26/18 00:00 IMPRESSION: NEGATIVE STUDY OF THE LEFT HAND. NO RADIOGRAPHIC EVIDENCE OF ACUTE INJURY. Shoulder X-Ray 07/26/18 00:00 IMPRESSION: NEGATIVE STUDY OF THE LEFT SHOULDER. NO RADIOGRAPHIC EVIDENCE OF ACUTE INJURY. Assessment & Plan - Diagnosis (1) Acute hyponatremia Is this a current diagnosis for this admission?: Yes Plan: Patient was admitted to the ICU and hypertonic saline administration was undertaken at the direction of Dr. Centeno. Patient's sodium rapidly corrected to approximately 120 from a level of 108.1. The hypertonic saline was discontinued and the patient was started back on normal saline for continued hydration and correction of her hyponatremia. Serial metabolic profiles will be evaluated to determine efficacy of therapy. 07/26/2018: Patient's serum sodium is 120 today and this is down slightly from 122. As a result she will have her sodium intake increase by adding 1300 mg of sodium bicarbonate PC and at bedtime. IV normal saline is discontinued. Patient was also noted to have developed hypokalemia while getting fluid therapy. She will be taking 40 mEq of potassium chloride after each meal as a supplement to replete her potassium stores. Her current serum potassium was 3.0. Electrolytes will be rechecked in the morning. 07/27/2018: Patient's serum sodium is up to 130 today and her serum potassium has returned to 4.1. I will re-decrease the amount of potassium supplementation that the patient is getting and we will continue her oral sodium repletion. We will recheck her electrolytes tomorrow prior to probable discharge. (2) Alcohol dependence with acute alcoholic intoxication with complication Is this a current diagnosis for this admission?: Yes Plan: Initial blood alcohol was 180 which is definitely a level of alcohol intoxication. Given the pharmacokinetics of alcohol patient is now sober and her acute intoxication has resolved. She will need close observation for alcohol withdrawal syndrome. 07/26/2018: Patient has chronic alcohol dependence with acute intoxication on admission that has now resolved in terms of her acute intoxication. Her chronic alcohol dependence remains as an underlying problem. I have counseled her on continuing to seek help and assistance with this following her program with AA and Narcotics Anonymous. (3) Alcohol dependence with withdrawal with complication Is this a current diagnosis for this admission?: Yes Plan: Shakira was noted to have tremor and confusion on yesterday's evaluation and was started on diazepam oral and IV therapy to control her withdrawal symptoms. She has been doing well on her current diazepam regiment with no further tremulousness and a markedly improved level of mental function without confusion or lack of focus. She will be continued on her diazepam regiment until discharge. (4) Chronic pancreatitis Qualifiers: Pancreatitis type: alcohol induced Qualified Code(s): K86.0 - Alcohol- induced chronic pancreatitis Is this a current diagnosis for this admission?: Yes Plan: Shakira has a known history of chronic pancreatitis and she is noted to have a mild elevation of her lipase at the present time which may represent an early acute exacerbation of her chronic pancreatitis or may just be reflective of her recent alcohol intake. Patient will be observed closely for clinical signs and symptoms of acute pancreatitis and her serum lipase and amylase will be followed on a serial basis. 07/26/2018: Patient's amylase and lipase are normal on today's evaluation. Patient most likely did not have acute pancreatitis but did have an acute elevation of her pancreatic enzymes due to her alcohol use in the face of her chronic pancreatitis. (5) Tobacco abuse Is this a current diagnosis for this admission?: Yes Plan: Patient will be offered a daily nicotine replacement patch (NicoDerm) if she wishes to use it during her hospital course. She has been advised to discontinue smoking and smoking cessation has been counseled and thoroughly discussed however she is not interested in discontinuing smoking at this time. - Time Time Spent with patient: 15-24 minutes Medications reviewed and adjusted accordingly: Yes Anticipated discharge: Home Within: within 24 hours
[2018-07-27 13:26] LABS: HEMATOCRIT 22.8 % (36.0-47.0); MEAN CORPUSCULAR HEMOGLOBIN 23.9 pg (27.0-33.4); MEAN CORPUSCULAR HGB CONC 33.6 g/dL (32.0-36.0); MEAN CORPUSCULAR VOLUME 71 fl (80-97); PLATELET COUNT 430 10^3/uL (150-450); RED BLOOD COUNT 3.19 10^6/uL (3.72-5.28); RED CELL DISTRIBUTION WIDTH 21.2 % (11.5-14.0); WHITE BLOOD COUNT 7.1 10^3/uL (4.0-10.5)
[2018-07-27 13:40] LABS: HEMOGLOBIN 7.6 g/dL (12.0-15.5)
[2018-07-27] MEDS: ACETAMINOPHEN 325 MG TABLET PO PRN (14:16)
[2018-07-27] MEDS ORDERED: POTASSIUM CHLORIDE 10 MEQ CAPSULE.ER PO SCH (18:00)
[2018-07-27 20:49] LABS: HEMATOCRIT 27.3 % (36.0-47.0); MEAN CORPUSCULAR HEMOGLOBIN 24.5 pg (27.0-33.4); MEAN CORPUSCULAR VOLUME 74 fl (80-97); PLATELET COUNT 455 10^3/uL (150-450); RED BLOOD COUNT 3.69 10^6/uL (3.72-5.28); RED CELL DISTRIBUTION WIDTH 23.3 % (11.5-14.0); WHITE BLOOD COUNT 10.2 10^3/uL (4.0-10.5)
[2018-07-27] MEDS: OLANZAPINE 5 MG TABLET PO SCH (22:28)
[2018-07-27] MEDS: TRAZODONE HCL 50 MG TABLET PO SCH (22:28)
[2018-07-28 05:03] LABS: HEMATOCRIT 29.1 % (36.0-47.0); HEMOGLOBIN 9.6 g/dL (12.0-15.5); MEAN CORPUSCULAR HEMOGLOBIN 24.3 pg (27.0-33.4); MEAN CORPUSCULAR HGB CONC 32.9 g/dL (32.0-36.0); MEAN CORPUSCULAR VOLUME 74 fl (80-97); PLATELET COUNT 407 10^3/uL (150-450); RED BLOOD COUNT 3.94 10^6/uL (3.72-5.28); RED CELL DISTRIBUTION WIDTH 22.9 % (11.5-14.0); WHITE BLOOD COUNT 10.2 10^3/uL (4.0-10.5)
[2018-07-28 05:18] LABS: ANION GAP 13 (5-19); BLOOD UREA NITROGEN 5 mg/dL (7-20); CALCIUM 9.7 mg/dL (8.4-10.2); CARBON DIOXIDE 24 mmol/L (22-30); CHLORIDE 96 mmol/L (98-107); GLUCOSE 111 mg/dL (75-110); POTASSIUM 5.1 mmol/L (3.6-5.0)
[2018-07-28] MEDS: LANSOPRAZOLE 30 MG TAB.RAP.DR PO SCH (06:37)
[2018-07-28 08:19] VITALS: BP 118/69
[2018-07-28] MEDS: SODIUM BICARBONATE 650 MG TABLET PO SCH ×2 (09:48→14:53)
[2018-07-28] MEDS: MULTIVITAMIN TABLET PO SCH (09:48)
[2018-07-28] MEDS: FLUOXETINE HCL 20 MG CAPSULE PO SCH (09:49)
[2018-07-28] MEDS: NICOTINE 21 MG/24 HR PATCH.TD24 TD SCH (09:49)
[2018-07-28] MEDS: LISINOPRIL 10 MG TABLET PO SCH (09:49)
[2018-07-28] MEDS: THIAMINE HCL 100 MG TABLET PO SCH (09:49)
[2018-07-28] MEDS: OXCARBAZEPINE 150 MG TABLET PO SCH ×2 (09:50→14:42)
[2018-07-28] MEDS: FLUTICASONE NASAL SPRAY 50 MCG/SPRY 120 SPRAY/16 GM NASL SCH (09:53)
[2018-07-28] MEDS: ENOXAPARIN SODIUM INJ 40 MG/0.4 ML DISP.SYRIN SUBCUT SCH (09:54)
--- NOTE | 2018-07-28 14:16 | PDOC DISCHARGE SUMMARY ---
General - Admit/Disc Date/PCP Admission Date/Primary Care Provider: 07/24/18 19:29 MARCOS GILLESPIE MD Discharge Date: 07/28/18 - Discharge Diagnosis (1) Acute hyponatremia Is this a current diagnosis for this admission?: Yes Summary: Patient was admitted to the ICU and hypertonic saline administration was undertaken at the direction of Dr. Centeno. Patient's sodium rapidly corrected to approximately 120 from a level of 108.1. The hypertonic saline was discontinued and the patient was started back on normal saline for continued hydration and correction of her hyponatremia. Serial metabolic profiles will be evaluated to determine efficacy of therapy. 07/26/2018: Patient's serum sodium is 120 today and this is down slightly from 122. As a result she will have her sodium intake increase by adding 1300 mg of sodium bicarbonate PC and at bedtime. IV normal saline is discontinued. Patient was also noted to have developed hypokalemia while getting fluid therapy. She will be taking 40 mEq of potassium chloride after each meal as a supplement to replete her potassium stores. Her current serum potassium was 3.0. Electrolytes will be rechecked in the morning. 07/27/2018: Patient's serum sodium is up to 130 today and her serum potassium has returned to 4.1. I will re-decrease the amount of potassium supplementation that the patient is getting and we will continue her oral sodium repletion. We will recheck her electrolytes tomorrow prior to probable discharge. (2) Alcohol dependence with acute alcoholic intoxication with complication Is this a current diagnosis for this admission?: Yes Summary: Initial blood alcohol was 180 which is definitely a level of alcohol intoxication. Given the pharmacokinetics of alcohol patient is now sober and her acute intoxication has resolved. She will need close observation for alcohol withdrawal syndrome. 07/26/2018: Patient has chronic alcohol dependence with acute intoxication on admission that has now resolved in terms of her acute intoxication. Her chronic alcohol dependence remains as an underlying problem. I have counseled her on continuing to seek help and assistance with this following her program with AA and Narcotics Anonymous. (3) Alcohol dependence with withdrawal with complication Is this a current diagnosis for this admission?: Yes Summary: Shakira was noted to have tremor and confusion on yesterday's evaluation and was started on diazepam oral and IV therapy to control her withdrawal symptoms. She has been doing well on her current diazepam regiment with no further tremulousness and a markedly improved level of mental function without confusion or lack of focus. She will be continued on her diazepam regiment until discharge. (4) Chronic pancreatitis Is this a current diagnosis for this admission?: Yes Summary: Shakira has a known history of chronic pancreatitis and she is noted to have a mild elevation of her lipase at the present time which may represent an early acute exacerbation of her chronic pancreatitis or may just be reflective of her recent alcohol intake. Patient will be observed closely for clinical signs and symptoms of acute pancreatitis and her serum lipase and amylase will be followed on a serial basis. 07/26/2018: Patient's amylase and lipase are normal on today's evaluation. Patient most likely did not have acute pancreatitis but did have an acute elevation of her pancreatic enzymes due to her alcohol use in the face of her chronic pancreatitis. (5) Tobacco abuse Is this a current diagnosis for this admission?: Yes Summary: Patient will be offered a daily nicotine replacement patch (NicoDerm) if she wishes to use it during her hospital course. She has been advised to discontinue smoking and smoking cessation has been counseled and thoroughly discussed however she is not interested in discontinuing smoking at this time. - Additional Information Discharge Diet: Cardiac Discharge Activity: Activity As Tolerated, Walk Frequently Home Medications: Trazodone HCl [Desyrel] 100 mg PO QHS 07/24/18 Fluoxetine HCl [Prozac 20 mg Capsule] 60 mg PO DAILY capsule 07/25/18 Fluticasone Propionate [Flonase Nasal [place] 50 Mcg/[place] 16 gm] 1 spray NASL BID spray.pump 07/25/18 Lisinopril [Prinivil 10 mg Tablet] 10 mg PO DAILY tablet 07/25/18 Olanzapine [Zyprexa 5 mg Tablet] 5 mg PO QHS tablet 07/25/18 Oxcarbazepine [Trileptal 150 mg Tablet] 300 mg PO TID@0900,1500,2100 tablet History of Present Illness History of Present Illness: SHAKIRA MULLINS is a 38 year old female who presented to the emergency room with acute alcohol intoxication resulting in falls x2. She admits a 10-year history of chronic alcohol abuse/alcoholism consuming 1/2 gallon of vodka on a daily basis until 2 weeks ago when she joined and went through detoxification. 5 days prior to admission she started having nausea and vomiting and became unsteady on her feet. She had not consumed any food and very little in the way of fluids over that 5-day period of time. Approximately 24 hours prior to her admission she began drinking again and consumed 1/2 gallon of vodka. After her consumption she was having difficulty with ambulation and she fell twice striking her head on both occasions. She did not have loss of consciousness but had great difficulty getting up from her second fall in which she struck the back of her head and therefore called for emergency medical services. In the emergency room her head CAT scan was negative but she was noted to have severe electrolyte abnormalities with a serum sodium of 108.1. She was subsequently admitted to the ICU for correction of her electrolyte abnormalities with hypertonic saline as well as further evaluation and treatment. Hospital Course Hospital Course: 07/25/2018: Shakira has responded well to treatment and is becoming much more alert. She asked to be able to go home but is noted to be somewhat confused and very poorly focused from mental status. She has a moderate tremor noted and is somewhat disoriented though she shows no evidence of hallucination or seizure activity. Patient will be observed closely for alcohol withdrawal symptoms and is going to be prophylactically placed on a Valium regimen. She will be given Valium 10 mg intravenously x1 to initiate therapy and from that point on she will receive either oral or intravenous Valium every 4 hours. Her CIWA scale status will be determined on a regular basis for episodes of monitoring her withdrawal symptoms. 07/26/2018: Shakira continues to improve clinically however she is complaining of pain in her left hand left shoulder and left clavicle area today and thinks that she may have broken something when she fell so many times before coming to the hospital. X-rays were obtained and the left shoulder, left hand and left clavicle plain film series were all negative for acute fracture or dislocation. We have initiated oral therapy for all of her electrolyte replacement at her request if she wishes to be discharged as soon as possible. We have discussed discharging her tomorrow if she tolerates oral therapy tonight there is no degradation in her sodium and potassium levels by morning. She will use ibuprofen as needed for pain and she will be continued on the diazepam acute alcohol withdrawal schedule that was initiated yesterday. 07/27/2018: Patient states that she feels like she is doing better and initially this morning she thought she would like to go home today however she needs to have her Bernabe catheter out and she needs to be more active. She agrees to doing this she also agrees to receiving a unit of packed red blood cells as her hemoglobin has been in the sub-8.0 category 2 days in a row now. Additionally her sodium is now up to 130 and her potassium is 4.1 therefore her oral potassium supplementation will be decreased today and her potassium will be rechecked tomorrow. If it continues to be adequate her discharge dosing will be substantially reduced. She understands the need to become more active today and is looking forward to probably going home tomorrow. 07/28/2018: Patient states he feels well today and would like to go home. She offers that she still feels fairly anxious and would like to have something to take for her anxiety she points out that she is taking numerous medications prescribed by her psychiatrist but really do not seem to help. Her anxiety is accompanied by claustrophobia and panic attacks. I recommended that if she is going to discontinue her Prozac she do so by withdrawing 20 mg/week from her current 60 mg recommended dosage until she is at a level that she either wishes to continue or until she is reached the point where she has the ability to discontinue after being on 20 mg for 1 week. Remainder of her medications if she wishes to discontinue them she should be able to stop without difficulty. We have discussed treatment for her anxiety and I will prescribe Klonopin 1 mg p.o. every 8 hours (3 times daily) giving her a one-month supply until she can discuss this with her psychiatrist and therapist. We will further discussed attendance at AA or NA meetings and she is willing to make one or more meetings per day for the next 90 days or more if needed. She is being discharged home in improved and stable condition. Physical Exam Vital Signs: Temp Pulse Resp BP Pulse Ox 98.7 F 73 16 118/69 98 07/28/18 08:00 07/28/18 08:00 07/28/18 08:00 07/28/18 08:00 07/28/18 08:00 Intake & Output 07/26/18 07/27/18 07/28/18 23:59 23:59 23:59 Intake Total 1140 900 Output Total 5210 1150 900 Balance -4070 -250 -900 Weight 71.2 kg 73.7 kg 75.5 kg General appearance: PRESENT: no acute distress, cooperative Head exam: PRESENT: atraumatic, normocephalic Eye exam: PRESENT: conjunctiva pink, EOMI Ear exam: PRESENT: normal external ear exam Mouth exam: PRESENT: neck supple Respiratory exam: PRESENT: clear to auscultation brenda, symmetrical, unlabored Cardiovascular exam: PRESENT: RRR, other - No murmurs clicks gallops or rubs Vascular exam: PRESENT: normal capillary refill. ABSENT: pallor GI/Abdominal exam: PRESENT: normal bowel sounds, soft Rectal exam: PRESENT: deferred Extremities exam: ABSENT: joint swelling, pedal edema Musculoskeletal exam: PRESENT: full ROM, normal inspection Neurological exam: PRESENT: alert, oriented to person, oriented to place, oriented to time, oriented to situation Psychiatric exam: PRESENT: appropriate affect, normal mood Skin exam: PRESENT: dry, intact, warm Results Laboratory Results: 07/28/18 04:53 07/28/18 04:53 07/27/18 07/27/18 07/28/18 13:05 20:40 04:53 WBC 10.2 10.2 RBC 3.69 L 3.94 Hgb 9.0 L 9.6 L Hct 27.3 L 29.1 L MCV 74 L 74 L MCH 24.5 L 24.3 L MCHC 33.0 32.9 RDW 23.3 H 22.9 H Plt Count 455 H 407 Sodium Potassium Chloride Carbon Dioxide Anion Gap BUN Creatinine Est GFR ( Amer) Est GFR (Non-Af Amer) Glucose Calcium Blood Type B POSITIVE Antibody Screen NEGATIVE 07/28/18 04:53 WBC RBC Hgb Hct MCV MCH MCHC RDW Plt Count Sodium 133.0 L Potassium 5.1 H Chloride 96 L Carbon Dioxide 24 Anion Gap 13 BUN 5 L Creatinine 0.40 L Est GFR ( Amer) > 60 Est GFR (Non-Af Amer) > 60 Glucose 111 H Calcium 9.7 Blood Type Antibody Screen Impressions: Head CT 07/24/18 17:07 IMPRESSION: No acute intracranial findings. EVIDENCE OF ACUTE STROKE: NO. Clavicle X-Ray 07/26/18 00:00 IMPRESSION: NO RADIOGRAPHIC EVIDENCE OF ACUTE INJURY. Hand X-Ray 07/26/18 00:00 IMPRESSION: NEGATIVE STUDY OF THE LEFT HAND. NO RADIOGRAPHIC EVIDENCE OF ACUTE INJURY. Shoulder X-Ray 07/26/18 00:00 IMPRESSION: NEGATIVE STUDY OF THE LEFT SHOULDER. NO RADIOGRAPHIC EVIDENCE OF ACUTE INJURY. Qualifiers - * PATIENT BEING DISCHARGED WITH ANY OF THE FOLLOWING DIAGNOSIS: No Plan Discharge Plan: Discharged home in improved and stable condition Time Spent: Greater than 30 Minutes
[2018-07-28] MEDS: IBUPROFEN 800 MG TABLET PO PRN (14:52)
[2018-07-28] MEDS ORDERED: CLONAZEPAM 1 MG TABLET PO SCH (15:00)
== END 2018-07-28 15:20 | disposition home or self-care (01) | DRG 641 ==
LOC: ER 16:37 → EH 19:29 → ICU 23:05
PROVIDERS: ADMIT Internal Medicine; ATTEND Internal Medicine
PROC: 30233N1 Transfusion of Nonautologous Red Blood Cells into Peripheral Vein, Percutaneous Approach (ICD-10-PCS; principal; 2018-07-27)
DX: E87.1 Hypo-osmolality and hyponatremia (principal); K86.0 Alcohol-induced chronic pancreatitis; F10.239 Alcohol dependence with withdrawal, unspecified; F10.229 Alcohol dependence with intoxication, unspecified; D64.9 Anemia, unspecified; E86.0 Dehydration; K21.9 Gastro-esophageal reflux disease without esophagitis; D72.829 Elevated white blood cell count, unspecified; F32.9 Major depressive disorder, single episode, unspecified; F41.1 Generalized anxiety disorder; R40.2142 Coma scale, eyes open, spontaneous, at arrival to emergency department; R40.2362 Coma scale, best motor response, obeys commands, at arrival to emergency department; R40.2252 Coma scale, best verbal response, oriented, at arrival to emergency department; F17.210 Nicotine dependence, cigarettes, uncomplicated; Y90.6 Blood alcohol level of 120-199 mg/100 ml
CPT/HCPCS: 36415; 36430; 70450; 80048; 80053; 80307; 81001; 82150; 82272; 82803; 83690; 83735; 83930; 83935; 84295; 84300; 84443; 85025; 85027; 86850; 86900; 86901; 86920; 93005; 93010; 96360; 99291; J1650; J2060; J2405; J2765; J3360; J3411; J3480; J3490; J7030; J7050; P9016

== ENCOUNTER 2018-08-07 10:02 | Emergency (ER) | payer BC ==
[2018-08-07 10:10] VITALS: BP 131/83
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
[2018-08-07 11:29] LABS: ABSOLUTE BASOPHILS # (AUTO) 0.1 10^3/uL (0.0-0.2); ABSOLUTE EOSINOPHILS # (AUTO) 0.1 10^3/uL (0.0-0.6); ABSOLUTE LYMPHOCYTES (AUTO) 2.3 10^3/uL (0.5-4.7); ABSOLUTE MONOCYTES (AUTO) 0.2 10^3/uL (0.1-1.4); ABSOLUTE NEUT (AUTO) 3.3 10^3/uL (1.7-8.2); BASOPHILS % (AUTO) 0.9 % (0-2); EOSINOPHILS % (AUTO) 1.9 % (0-6); HEMATOCRIT 28.9 % (36.0-47.0); HEMOGLOBIN 9.7 g/dL (12.0-15.5); LYMPHOCYTES % (AUTO) 38.3 % (13-45); MEAN CORPUSCULAR HEMOGLOBIN 25.4 pg (27.0-33.4); MEAN CORPUSCULAR HGB CONC 33.4 g/dL (32.0-36.0); MEAN CORPUSCULAR VOLUME 76 fl (80-97); MONOCYTES % (AUTO) 3.8 % (3-13); PLATELET COUNT 520 10^3/uL (150-450); RED CELL DISTRIBUTION WIDTH 23.9 % (11.5-14.0); SEGMENTED NEUTROPHILS % (AUTO) 55.1 % (42-78); TOTAL CELLS COUNTED % (AUTO) 100 %; WHITE BLOOD COUNT 5.9 10^3/uL (4.0-10.5)
[2018-08-07 11:40] LABS: APPEARANCE,URINE SLIGHTLY-CLOUDY; BILIRUBIN,URINE NEGATIVE (NEGATIVE); COLOR,URINE YELLOW; GLUCOSE, URINE NEGATIVE (NEGATIVE); KETONES,URINE NEGATIVE (NEGATIVE); LEUKOCYTE ESTERASE,URINE NEGATIVE (NEGATIVE); NITRITE,URINE NEGATIVE (NEGATIVE); PROTEIN,URINE NEGATIVE (NEGATIVE); UROBILINOGEN,URINE NEGATIVE mg/dL (<2.0)
--- NOTE | 2018-08-07 11:41 | RADIOLOGY REPORT (SQ) ---
EXAM DESCRIPTION: CT HEAD WITHOUT COMPLETED DATE/TIME: 08/07/2018 11:22 am REASON FOR STUDY: fall COMPARISON: 07/24/2018 TECHNIQUE: Axial images acquired through the brain without intravenous contrast. Images reviewed wi th bone, brain and subdural windows. Additional sagittal and coronal reconstructions were generated. Images stored on PACS. All CT scanners at this facility use dose modulation, iterative reconstruction, and/or weight based d osing when appropriate to reduce radiation dose to as low as reasonably achievable (ALARA). [facility]: Dose Right [facility]: CareDose [facility]: Dose Right [facility]: Teradose 4D [facility]: [employer] RADIATION DOSE: CT Rad equipment meets quality standard of care and radiation dose reduction techniq ues were employed. CTDIvol: 53.2 mGy. DLP: 1044 mGy-cm. mGy. LIMITATIONS: None. FINDINGS: VENTRICLES: Normal size and contour. CEREBRUM: No masses. No hemorrhage. No midline shift. No evidence for acute infarction. Normal gra y/white matter differentiation. No areas of low density in the white matter. CEREBELLUM: No masses. No hemorrhage. No alteration of density. No evidence for acute infarction. EXTRAAXIAL SPACES: No fluid collections. No masses. ORBITS AND GLOBE: No intra- or extraconal masses. Normal contour of globe without masses. CALVARIUM: No fracture. PARANASAL SINUSES: There is very mild mucosal thickening in the right maxillary sinus. There is bila teral ethmoid air cell disease. SOFT TISSUES: No mass or hematoma. OTHER: No other significant finding. IMPRESSION: 1. No acute intracranial event. 2. Ethmoid and mild right maxillary mucosal thickening. EVIDENCE OF ACUTE STROKE: NO. COMMENT: Quality ID # [id number]: Final reports with documentation of one or more dose reduction techniques (e.g., Automated exposure control, adjustment of the mA and/or kV according to patient size, use of iterative reconstruction technique) TECHNICAL DOCUMENTATION: JOB ID: [id number] [employer]- All Rights Reserved Reading location - IP/workstation name: [email or web address]
[2018-08-07 11:47] LABS: URINE AMPHETAMINES SCREEN NEGATIVE; URINE BARBITURATES SCREEN NEGATIVE; URINE BENZODIAZEPINES SCREEN UNCONFIRMED POSITIVE; URINE COCAINE SCREEN NEGATIVE; URINE MARIJUANA (THC) SCREEN NEGATIVE; URINE METHADONE SCREEN NEGATIVE; URINE PHENCYCLIDINE SCREEN NEGATIVE
[2018-08-07 11:52] LABS: ALANINE AMINOTRANSFERASE 15 U/L (9-52); ALBUMIN 4.4 g/dL (3.5-5.0); ALCOHOL < 10 mg/dL (NONE DETECTED); ALKALINE PHOSPHATASE 83 U/L (38-126); ANION GAP 14 (5-19); ASPARTATE AMINO TRANSFERASE 18 U/L (14-36); BILIRUBIN,DIRECT 0.2 mg/dL (0.0-0.4); BILIRUBIN,TOTAL 0.2 mg/dL (0.2-1.3); BLOOD UREA NITROGEN 11 mg/dL (7-20); CALCIUM 10.1 mg/dL (8.4-10.2); CARBON DIOXIDE 24 mmol/L (22-30); CHLORIDE 105 mmol/L (98-107); GLUCOSE 92 mg/dL (75-110); POTASSIUM 4.7 mmol/L (3.6-5.0); SODIUM 142.6 mmol/L (137-145); TOTAL PROTEIN 7.6 g/dL (6.3-8.2)
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
--- NOTE | 2018-08-07 13:16 | RADIOLOGY REPORT (SQ) ---
EXAM DESCRIPTION: CT CERVICAL SPINE WITHOUT; CT LUMBAR SPINE WITHOUT; CT THORACIC SPINE WITHOUT COMPLETED DATE/TIME: 08/07/2018 1:00 pm REASON FOR STUDY: Falls with pain in back; Falls with back pain COMPARISON: None. TECHNIQUE: Axial images acquired through the cervical, thoracic and lumbar spine without intravenous contrast. Images reviewed with lung, soft tissue and bone windows. Reconstructed coronal and sagit citlali MPR images reviewed. Images stored on PACS. All CT scanners at this facility use dose modulation, iterative reconstruction, and/or weight based d osing when appropriate to reduce radiation dose to as low as reasonably achievable (ALARA). [facility]: Dose Right [facility]: CareDose [facility]: Dose Right [facility]: Teradose 4D [facility]: [employer] RADIATION DOSE: CT Rad equipment meets quality standard of care and radiation dose reduction techniq ues were employed. CTDIvol: 17.0 mGy. DLP: 320 mGy-cm.; CT Rad equipment meets quality standard of ca re and radiation dose reduction techniques were employed. CTDIvol: 95.8 mGy. DLP: 3578 mGy-cm. mGy. LIMITATIONS: None. FINDINGS: CERVICAL Normal alignment. C5-6 disc disease. No fracture or bone lesion. Soft tissues normal. THORACIC Normal alignment. Discs look preserved. No fracture or bone lesion. Motion artifact in the depende nt lungs. Mild subsegmental atelectasis and evidence of previous granulomatous disease. Cardiomegal y. LUMBAR Bilateral L5 pars defects with grade 1 listhesis at the lumbosacral junction. Slight retrolisthesis at L4-5. No scoliosis. Disc space narrowing with disc bulges throughout. No fracture or worrisome bone lesion. Incompletely evaluated changes consistent with chronic pancreatitis. Includes calcific ation in the pancreatic head and pancreatic duct dilatation. IMPRESSION: 1. No acute cervical spine injury. C5-6 disc disease. 2. No thoracic spine injury scott dent. 3. No lumbar spine injury evident. L5 bilateral pars defects with listhesis. 4. Changes sugg esting chronic pancreatitis, incompletely assessed. TECHNICAL DOCUMENTATION: JOB ID: [id number] Quality ID # [id number]: Final reports with documentation of one or more dose reduction techniques (e.g., Au tomated exposure control, adjustment of the mA and/or kV according to patient size, use of iterative reconstruction technique) 2010 [employer]- All Rights Reserved Reading location - IP/workstation name: [email or web address]
--- NOTE | 2018-08-07 13:16 | RADIOLOGY REPORT (SQ) ---
EXAM DESCRIPTION: CT CERVICAL SPINE WITHOUT; CT LUMBAR SPINE WITHOUT; CT THORACIC SPINE WITHOUT COMPLETED DATE/TIME: 08/07/2018 1:00 pm REASON FOR STUDY: Falls with pain in back; Falls with back pain COMPARISON: None. TECHNIQUE: Axial images acquired through the cervical, thoracic and lumbar spine without intravenous contrast. Images reviewed with lung, soft tissue and bone windows. Reconstructed coronal and sagit citlali MPR images reviewed. Images stored on PACS. All CT scanners at this facility use dose modulation, iterative reconstruction, and/or weight based d osing when appropriate to reduce radiation dose to as low as reasonably achievable (ALARA). [facility]: Dose Right [facility]: CareDose [facility]: Dose Right [facility]: Teradose 4D [facility]: QHB HOLDINGS RADIATION DOSE: CT Rad equipment meets quality standard of care and radiation dose reduction techniq ues were employed. CTDIvol: 17.0 mGy. DLP: 320 mGy-cm.; CT Rad equipment meets quality standard of ca re and radiation dose reduction techniques were employed. CTDIvol: 95.8 mGy. DLP: 3578 mGy-cm. mGy. LIMITATIONS: None. FINDINGS: CERVICAL Normal alignment. C5-6 disc disease. No fracture or bone lesion. Soft tissues normal. THORACIC Normal alignment. Discs look preserved. No fracture or bone lesion. Motion artifact in the depende nt lungs. Mild subsegmental atelectasis and evidence of previous granulomatous disease. Cardiomegal y. LUMBAR Bilateral L5 pars defects with grade 1 listhesis at the lumbosacral junction. Slight retrolisthesis at L4-5. No scoliosis. Disc space narrowing with disc bulges throughout. No fracture or worrisome bone lesion. Incompletely evaluated changes consistent with chronic pancreatitis. Includes calcific ation in the pancreatic head and pancreatic duct dilatation. IMPRESSION: 1. No acute cervical spine injury. C5-6 disc disease. 2. No thoracic spine injury scott dent. 3. No lumbar spine injury evident. L5 bilateral pars defects with listhesis. 4. Changes sugg esting chronic pancreatitis, incompletely assessed. TECHNICAL DOCUMENTATION: JOB ID: [id number] Quality ID # [id number]: Final reports with documentation of one or more dose reduction techniques (e.g., Au tomated exposure control, adjustment of the mA and/or kV according to patient size, use of iterative reconstruction technique) 2010 [employer]- All Rights Reserved Reading location - IP/workstation name: [email or web address]
== END 2018-08-07 13:50 | disposition home or self-care (01) ==
LOC: ER 10:02
DX: S06.0X9A Concussion with loss of consciousness of unspecified duration, initial encounter (principal); R42 Dizziness and giddiness; R11.0 Nausea; W19.XXXA Unspecified fall, initial encounter; F17.200 Nicotine dependence, unspecified, uncomplicated; Z87.820 Personal history of traumatic brain injury; Z98.51 Tubal ligation status
CPT/HCPCS: 36415; 70450; 72125; 72128; 72131; 80053; 80307; 81001; 81025; 85025; 87086; 99284

== ENCOUNTER 2018-12-18 14:41 | Inpatient (IN) | payer BC ==
--- NOTE | 2018-12-18 16:26 | ER Document Report ---
ED Medical Screen (RME) - General Chief Complaint: Nausea/Vomiting Stated Complaint: FEVER/VOMITING/ABDOMINAL PAIN POST PROCEDURE Time Seen by Provider: 12/18/18 16:22 Primary Care Provider: MARCOS GILLESPIE MD [NO LOCAL MD] - Follow up as needed Mode of Arrival: Ambulatory Information source: Patient Notes: Patient presents to the emergency department with complaints of abdominal pain and dehydration. Reports she had stents put in her pancreas 2 weeks ago 11/29/18, for chronic pancreatitis at [facility].. She reports she has had fever and throwing up for 6 days. She was tearful with positive tears. I have greeted and performed a rapid initial assessment of this patient. A comprehensive ED assessment and evaluation of the patient, analysis of test results and completion of the medical decision making process will be conducted by additional ED providers. TRAVEL OUTSIDE OF THE [place] IN LAST 30 DAYS: No - Related Data Allergies/Adverse Reactions: No Known Allergies Allergy (Verified 12/18/18 14:45) Past Medical History - Past Medical History Cardiac Medical History: Denies: Hx Heart Attack, Hx Hypertension Pulmonary Medical History: Denies: Hx Asthma Neurological Medical History: Denies: Hx Cerebrovascular Accident, Hx Seizures Renal/ Medical History: Denies: Hx Peritoneal Dialysis GI Medical History: Reports: Hx Gastroesophageal Reflux Disease. Denies: Hx Hepatitis, Hx Hiatal Hernia, Hx Ulcer Psychiatric Medical History: Reports: Hx Depression Infectious Medical History: Denies: Hx Hepatitis Past Surgical History: Reports: Hx Tubal Ligation. Denies: Hx Hysterectomy, Hx Mastectomy, Hx Open Heart Surgery, Hx Pacemaker - Immunizations Hx Diphtheria, Pertussis, Tetanus Vaccination: Yes Physical Exam - Vital signs Vitals: Temp Pulse Resp BP Pulse Ox 98.7 F 76 18 143/89 H 97 12/18/18 14:50 12/18/18 14:50 12/18/18 14:50 12/18/18 14:50 12/18/18 14:50 Course - Vital Signs Vital signs: Temp Pulse Resp BP Pulse Ox 98.7 F 76 18 143/89 H 97 12/18/18 14:50 12/18/18 14:50 12/18/18 14:50 12/18/18 14:50 12/18/18 14:50 Doctor's Discharge - Discharge Referrals: MARCOS GILLESPIE MD [NO LOCAL MD] - Follow up as needed
[2018-12-18 17:10] LABS: APPEARANCE,URINE SLIGHTLY-CLOUDY; BILIRUBIN,URINE MODERATE (NEGATIVE); COLOR,URINE YELLOW; GLUCOSE, URINE NEGATIVE (NEGATIVE); KETONES,URINE 20 mg/dL (NEGATIVE); LEUKOCYTE ESTERASE,URINE NEGATIVE (NEGATIVE); NITRITE,URINE NEGATIVE (NEGATIVE); PROTEIN,URINE 100 mg/dL (NEGATIVE); URINE SPECIFIC GRAVITY 1.025
[2018-12-18 17:17] LABS: HEMATOCRIT 30.9 % (36.0-47.0); MEAN CORPUSCULAR HEMOGLOBIN 24.6 pg (27.0-33.4); MEAN CORPUSCULAR HGB CONC 32.3 g/dL (32.0-36.0); MEAN CORPUSCULAR VOLUME 76 fl (80-97); PLATELET COUNT 387 10^3/uL (150-450); RED BLOOD COUNT 4.06 10^6/uL (3.72-5.28); RED CELL DISTRIBUTION WIDTH 24.8 % (11.5-14.0); WHITE BLOOD COUNT 7.4 10^3/uL (4.0-10.5)
[2018-12-18 17:25] LABS: ALANINE AMINOTRANSFERASE 29 U/L (9-52); ALBUMIN 3.9 g/dL (3.5-5.0); ALKALINE PHOSPHATASE 452 U/L (38-126); AMYLASE 201 U/L (30-110); ANION GAP 17 (5-19); ASPARTATE AMINO TRANSFERASE 48 U/L (14-36); BILIRUBIN,DIRECT 0.5 mg/dL (0.0-0.4); BILIRUBIN,TOTAL 0.6 mg/dL (0.2-1.3); BLOOD UREA NITROGEN 13 mg/dL (7-20); CARBON DIOXIDE 25 mmol/L (22-30); CHLORIDE 93 mmol/L (98-107); GLUCOSE 105 mg/dL (75-110); LIPASE 1174.2 U/L (23-300); SODIUM 135.4 mmol/L (137-145)
[2018-12-18 17:40] LABS: ABSOLUTE LYMPHOCYTES# (MANUAL) 1.1 10^3/uL (0.5-4.7); ABSOLUTE MONOCYTES # (MANUAL) 0.1 10^3/uL (0.1-1.4); ABSOLUTE NEUTROPHILS# (MANUAL) 6.2 10^3/uL (1.7-8.2); BASOPHILS % (MANUAL) 0 % (0-2); EOSINOPHILS % (MANUAL) 0 % (0-6); LYMPHOCYTES % (MANUAL) 15 % (13-45); MONOCYTES % (MANUAL) 1 % (3-13); SEGMENTED NEUTROPHILS % (MAN) 84 % (42-78); TOTAL CELLS COUNTED 100
[2018-12-18 17:42] LABS: PLATELET COMMENT ADEQUATE; PLATELET LARGE PRESENT
[2018-12-18 17:43] LABS: ANISOCYTOSIS 3+; OVALOCYTES SLIGHT; POIKILOCYTOSIS SLIGHT; TARGET CELLS SLIGHT
[2018-12-18 17:48] LABS: POTASSIUM 2.9 mmol/L (3.6-5.0)
[2018-12-18] MEDS ORDERED: RINGERS SOLUTION,LACTATED 1,000 ML IV ONE (18:00)
[2018-12-18] MEDS ORDERED: POTASSIUM CHLORIDE 20 MEQ/15 ML UDCUP PO ONE (18:00)
[2018-12-18] MEDS ORDERED: FENTANYL CITRATE INJ/PF 100 MCG/2 ML AMPUL IV ONE ×2 (18:40→19:55)
[2018-12-18] MEDS: POTASSI CL 20 MEQ/50 ML RIDER 20 MEQ/50 ML RTUPB IV SCH ×2 (19:24→20:42)
--- NOTE | 2018-12-18 19:25 | RADIOLOGY REPORT (SQ) ---
EXAM DESCRIPTION: U/S ABDOMEN LTD W/DOPPLER COMPLETED DATE/TIME: 12/18/2018 7:08 pm REASON FOR STUDY: RUQ/epigastric pain COMPARISON: 08/16/2015 TECHNIQUE: Dynamic and static grayscale images acquired of the right upper quadrant and recorded on PACS. Additional selected color Doppler and spectral images recorded. Note: Exam does not meet criteria for a complete doppler/duplex scan LIMITATIONS: Study limited due to acoustical interference from fat or from air in the bowel. FINDINGS: PANCREAS: Pancreas Poorly seen secondary to acoustical interference from fat or from air i n the bowel. Heterogeneous parenchyma with some echogenic foci suggesting calcifications. Pancreati c duct is dilated at 9 mm in the head - neck region, there is a reported history of stent, unclear if this may reflect the stented segment. LIVER: Echotexture is coarse with increased echogenicity consistent with fatty infiltration. 2.4 cm mildly echogenic nodule in the left liver corresponding to that seen on the prior study consistent wi th hemangioma. The other hemangiomas described previously are not identified. LIVER VASCULATURE: Normal directional flow of the main portal vein and hepatic veins. GALLBLADDER: Tiny gallstones and small amount of sludge. Normal wall thickness. No pericholecystic fl uid. ULTRASOUND-DETECTED LOPEZ'S SIGN: Negative. INTRAHEPATIC DUCTS AND COMMON DUCT: CBD mildly dilated at intrahepatic ducts normal caliber. No filli ng defects. INFERIOR VENA CAVA: Normal flow. AORTA: No aneurysm. RIGHT KIDNEY: Normal size. Normal echogenicity. No solid or suspicious masses. No hydronephrosis. No calcifications. PERITONEAL AND PLEURAL SPACES: No ascites or effusions. OTHER: No other significant finding. IMPRESSION: Pancreas body-tail Poorly seen secondary to acoustical interference from fat or from air in the bowel. Pancreatic duct is dilated at 9 mm in the head - neck region, there is a reported his tory of stent, unclear if this may reflect the stented segment.Heterogeneous pancreas parenchyma with some echogenic foci suggesting calcifications.FATTY INFILTRATION OF THE LIVER. 2.4 cm mildly echogen ic nodule in the left liver corresponding to that seen on the prior study consistent with hemangioma. The other hemangiomas described previously are not identified. Tiny gallstones and small amount of sludge. Normal wall thickness. No pericholecystic fluid. TECHNICAL DOCUMENTATION: JOB ID: [id number] [place]-72 2010 [employer]- All Rights Reserved Reading location - IP/workstation name: [email or web address]
[2018-12-18] MEDS: MAGNESIUM SULFATE/D5W 1 GM/100 ML RTUPB IV SCH ×2 (19:28→20:41)
[2018-12-18] MEDS ORDERED: ONDANSETRON HCL INJ/PF 4 MG/2 ML SDV IV ONE (19:55)
--- NOTE | 2018-12-18 21:13 | RADIOLOGY REPORT (SQ) ---
EXAM DESCRIPTION: CT ABDOMEN PELVIS WITH IV CONTRAST COMPLETED DATE/TME: 12/18/2018 19:15 CLINICAL HISTORY: 38 years, Female, epigastrci pain/recent pancrease stent placement COMPARISON: Prior study from 08/16/2015 TECHNIQUE: Contrast enhanced CT of the abdomen/pelvis was performed. Coronal and sagittal reformations were created. Images stored on PACS. All CT scanners at this facility use dose modulation, iterative reconstruction, and/or weight based dosing when appropriate to reduce radiation dose to as low as reasonably achievable (ALARA). [facility]: Dose Right [facility]: CareDose [facility]: Dose Right [facility]: Teradose 4D [facility]: Watchup LIMITATIONS: None. FINDINGS: Limited evaluation of the lower chest reveals a few scattered calcified granulomas about both lung bases. Lung bases are otherwise clear. Evaluation of liver parenchyma reveals an ill-defined hypodense lesion located within the dome of the right hepatic lobe measuring 2.8 x 2.7 cm in size on image 18 of series 3. This appears to demonstrate progressive filling on the delayed images, and is compatible with a benign hemangioma. Similar finding is noted about the periphery of the left hepatic lobe on image 26 of series 3. Both are similar to the previous exam dated 08/16/2015. In addition, there is a geographic area of hypodensity located about the left hepatic lobe adjacent to the falciform ligament, either indicating an area of focal fat or third inflow artifact. The liver parenchyma otherwise enhances normally. The spleen, both adrenal glands, and gallbladder show no suspicious finding. Moderate intrahepatic biliary ductal dilatation is evident. Assessment of the pancreas reveals heterogenous enlargement of the pancreatic head neck region with associated dilatation and ectasia of the pancreatic duct upstream from this site. Scattered pancreatic parenchymal calcifications are noted about the pancreatic head as well. In addition, there is a stent in position about the proximal duodenum/duodenal bulb emanating towards the pancreatic head; however, the exact location of the stent is difficult to confirm. Superimposed inflammatory stranding is noted adjacent to the pancreatic head. Likewise, there is mild circumferential wall thickening involving the second and third portions of the duodenum, presumably reactive. Both kidneys enhance symmetrically. There is no hydronephrosis or hydroureter. The urinary bladder is collapsed, thus its evaluation is limited. A few functional cysts are noted about both ovaries. Bilateral tubal ostial occlusion devices are noted. Small and large bowel are otherwise normal in caliber without additional areas of focal wall thickening. No evidence of bowel obstruction. The appendix is normal. Vascular structures appeared opacify with contrast normally. Several mildly prominent peripancreatic lymph nodes are noted, presumably reactive. Bone windows show no destructive osseous lesions. Bilateral pars defects are noted at L5. IMPRESSION: Findings compatible with acute on chronic pancreatitis, particularly involving the pancreatic head. There is associated reactive circumferential wall thickening involving the second and third portions of the duodenum. Short interval follow-up CT is recommended to document improvement of these findings as a pancreatic head malignancy could technically have a similar appearance. Pre-existing biliary stent appears to be located within the proximal duodenum emanating towards the liver hilum. It is difficult to confirm whether the stent is located within the common bile duct (which would indicate an unusual configuration of the common bile duct) or has migrated to its present location. Correlate with clinical history as well as prior ERCP. Currently, there is moderate dilatation of the intrahepatic bile ducts. Benign liver hemangiomas. TECHNICAL DOCUMENTATION: Quality ID # 436: Final reports with documentation of one or more dose reduction techniques (e.g., Automated exposure control, adjustment of the mA and/or kV according to patient size, use of iterative reconstruction technique) copyright 2011 [employer]- All Rights Reserved
--- NOTE | 2018-12-18 22:19 | ER Document Report ---
ED General - General Chief Complaint: Nausea/Vomiting Stated Complaint: FEVER/VOMITING/ABDOMINAL PAIN POST PROCEDURE Time Seen by Provider: 12/18/18 16:22 Mode of Arrival: Ambulatory Notes: Patient is a 38-year-old female presents to the emergency department for generalized nausea, vomiting, subjective fever for the last 6 days. Patient states 2 weeks ago she had a stent placed in her pancreas for chronic pancreati tis at [facility]. Patient states initially she felt better after that procedure but states the last 6 days she had noticed increased pain, fevers, abdominal pain. Patient states she has had an unknown amount of vomiting is denying any diarrhea or blood in her emesis. Patient's denying contacting Dr. Merida the job boss who performed the procedure at [facility] or her primary care provider in the last 6 days for her complaints. Past medical history chronic alcoholic pancreatitis Medications: Patient is unsure of names Allergies: None TRAVEL OUTSIDE OF THE [place] IN LAST 30 DAYS: No - Related Data Allergies/Adverse Reactions: No Known Allergies Allergy (Verified 12/18/18 14:45) Past Medical History - General Information source: Patient - Social History Smoking Status: Current Every Day Smoker Chew tobacco use (# tins/day): No Frequency of alcohol use: None Drug Abuse: None Family History: Reviewed & Not Pertinent Patient has suicidal ideation: No Patient has homicidal ideation: No - Past Medical History Cardiac Medical History: Denies: Hx Heart Attack, Hx Hypertension Pulmonary Medical History: Denies: Hx Asthma Neurological Medical History: Denies: Hx Cerebrovascular Accident, Hx Seizures Renal/ Medical History: Denies: Hx Peritoneal Dialysis GI Medical History: Reports: Hx Gastroesophageal Reflux Disease. Denies: Hx Hepatitis, Hx Hiatal Hernia, Hx Ulcer Psychiatric Medical History: Reports: Hx Depression Infectious Medical History: Denies: Hx Hepatitis Past Surgical History: Reports: Hx Abdominal Surgery - pancreatic stents, Hx Tubal Ligation. Denies: Hx Hysterectomy, Hx Mastectomy, Hx Open Heart Surgery, Hx Pacemaker - Immunizations Hx Diphtheria, Pertussis, Tetanus Vaccination: Yes Review of Systems - Review of Systems Constitutional: See HPI EENT: No symptoms reported Cardiovascular: No symptoms reported Respiratory: No symptoms reported Gastrointestinal: See HPI Genitourinary: No symptoms reported Female Genitourinary: No symptoms reported Musculoskeletal: No symptoms reported Skin: No symptoms reported Hematologic/Lymphatic: No symptoms reported Neurological/Psychological: No symptoms reported Physical Exam - Vital signs Vitals: Temp Pulse Resp BP Pulse Ox 98.7 F 76 18 143/89 H 97 12/18/18 14:50 12/18/18 14:50 12/18/18 14:50 12/18/18 14:50 12/18/18 14:50 - Notes Notes: GENERAL: Alert, interacts well. Holding her epigastric region crying HEAD: Normocephalic, atraumatic. EYES: Pupils equal, round, and reactive to light. Extraocular movements intact. ENT: Oral mucosa moist, tongue midline. NECK: Full range of motion. Supple. Trachea midline. LUNGS: Clear to auscultation bilaterally, no wheezes, rales, or rhonchi. No respiratory distress. HEART: Regular rate and rhythm. No murmur ABDOMEN: Soft, Non-distended. Bowel sounds present in all 4 quadrants. Generalized epigastric tenderness noted. EXTREMITIES: Moves all 4 extremities spontaneously. No edema, normal radial and dorsalis pedis pulses bilaterally. No cyanosis. BACK: no cervical, thoracic, lumbar midline tenderness. No saddle anesthesia, n ormal distal neurovascular exam. NEUROLOGICAL: Alert and oriented x3. Normal speech. cranial nerves II through XII grossly intact PSYCH: Flat affect, depressed mood. SKIN: Pallor, warm, dry, normal turgor. No rashes or lesions noted. Course - Re-evaluation Re-evalutation: Extensive conversation with job boss Dr. Carlota Coleman at [facility]. She is reviewing patient charts and it is noted that on 11/29 the patient was seen at their facility for a 5 cm pancreatic pseudocyst for drainage. Last lipase noted in their facility was on 11/15/2018 noted to be 341. I have discussed patient's CT results ( no current pseudocyst) and lipase results with job boss Dr. Coleman and she states that this appears to be an acute on chronic pancreatitis. Discussed the she does not feel as though the patient needs to be emergently transferred to their facility. States this is something that a hospitalist can admit for generalized pancreatitis care. Discussed after the patient has been treated for this acute pancreatitis she can continue to follow-up at [facility] for an ERCP which is scheduled on 12/30/2018. Patient's potassium was noted to be 2.9, treated in the emergency room, lipase 1174, no signs of leukocytosis, WBC 7.4. Patient has remained afebrile and non- tachycardic in the emergency room. Her pain has been managed, she has been fluid resuscitated. Discussed this case with hospitalist Dr. Carranza who agrees to admit the patient for acute on chronic pancreatitis care. - Vital Signs Vital signs: Temp Pulse Resp BP Pulse Ox 98.7 F 76 13 144/103 H 100 12/18/18 14:50 12/18/18 14:50 12/18/18 19:14 12/18/18 19:14 12/18/18 19:14 - Laboratory Result Diagrams: 12/18/18 16:49 12/18/18 16:49 Laboratory results interpreted by me: 12/18/18 12/18/18 12/18/18 16:49 16:49 16:49 Hgb 10.0 L Hct 30.9 L MCV 76 L MCH 24.6 L RDW 24.8 H Seg Neuts % (Manual) 84 H Monocytes % (Manual) 1 L Sodium 135.4 L Potassium 2.9 L* Chloride 93 L Magnesium Direct Bilirubin 0.5 H AST 48 H Alkaline Phosphatase 452 H Amylase 201 H Lipase 1174.2 H Urine Protein 100 H Urine Ketones 20 H Urine Blood MODERATE H Urine Bilirubin MODERATE H Urine Urobilinogen 2.0 H 12/18/18 16:49 Hgb Hct MCV MCH RDW Seg Neuts % (Manual) Monocytes % (Manual) Sodium Potassium Chloride Magnesium 1.3 L Direct Bilirubin AST Alkaline Phosphatase Amylase Lipase Urine Protein Urine Ketones Urine Blood Urine Bilirubin Urine Urobilinogen Discharge - Discharge Clinical Impression: Hypokalemia Pancreatitis Qualifiers: Chronicity: acute Pancreatitis type: alcohol induced Acute pancreatitis complication: unspecified Qualified Code(s): K85.20 - Alcohol induced acute pancreatitis without necrosis or infection Condition: Stable Disposition: ADMITTED INPATIENT Admitting Provider: Dillon (Hospitalist) Unit Admitted: Medical Floor
[2018-12-18] MEDS: NORMAL SALINE 1000 ML 1,000 ML IV PRN (22:54)
[2018-12-18] MEDS ORDERED: KETOROLAC TROMETHAMINE INJ/PF 30 MG/1 ML SDV IV ONE (23:00)
[2018-12-18] MEDS ORDERED: NA PHOS,M-B/NA PHOS,DI-BA (ADULT) 133 ML ENEMA PR PRN (23:53)
[2018-12-18] MEDS ORDERED: FAMOTIDINE INJ/PF 20 MG/2 ML SDV IV ONE (23:59)
--- NOTE | 2018-12-19 00:03 | PDOC H&P ---
History of Present Illness Admission Date/PCP: 12/18/18 22:37 LISANDRA RIZZO MD Patient complains of: Abdominal pain nausea and vomiting History of Present Illness: HANH MULLINS is a 38 year old female with a past medical history of depression, alcohol dependence, acute and chronic pancreatitis, gastritis, iron deficiency anemia and tobacco. She presents with 48 hours of abdominal pain, nausea and vomiting gastric content. Patient reports hospitalization at [facility] where she had pseudocyst drainage and stent placement. CT of the abdomen in the emergency department is negative for re-recurrence of pseudocyst or necrotizing pancreatitis. She is referred to the hospitalist for admission. Denying alcohol use complaining of constipation. Past Medical History Cardiac Medical History: Denies: Myocardial Infarction, Hypertension Pulmonary Medical History: Denies: Asthma Neurological Medical History: Denies: Seizures GI Medical History: Reports: Gastroesophageal Reflux Disease, Other - Alcohol induced acute on chronic pancreatitis Denies: Hepatitis, Hiatal Hernia Psychiatric Medical History: Reports: Alcohol Dependency, Depression, Tobacco Dependency Hematology: Denies: Anemia, Sickle Cell Disease Past Surgical History Past Surgical History: Reports: Tubal Ligation Denies: Amputation, Hysterectomy, Mastectomy, Pacemaker Social History Information Source: Patient Smoking Status: Current Every Day Smoker Frequency of Alcohol Use: None - Currently denies but historicaly drinks half gallon of vodka but has been in detox for the last 2 weeks, started drinking last night. Hx Recreational Drug Use: No Drugs: None Hx Prescription Drug Abuse: No - Advance Directive Resuscitation Status: Full Code Family History Family History: Hypertension Parental Family History Reviewed: Yes Children Family History Reviewed: Yes Sibling(s) Family History Reviewed.: Yes Medication/Allergy Home Medications: Trazodone HCl [Desyrel] 100 mg PO QHS 07/24/18 Fluoxetine HCl [Prozac 20 mg Capsule] 60 mg PO DAILY capsule 07/25/18 Fluticasone Propionate [Flonase Nasal [place] 50 Mcg/[place] 16 gm] 1 spray NASL BID spray.pump 07/25/18 Lisinopril [Prinivil 10 mg Tablet] 10 mg PO DAILY tablet 07/25/18 Clonazepam [Klonopin 1 mg Tablet] 1 mg PO Q8H 30 Days #90 tablet 07/28/18 Meclizine HCl [Antivert 25 mg Tablet] 25 mg PO QIDP PRN #30 tablet 08/07/18 Ondansetron [Zofran Odt 4 mg Tablet] 1 - 2 tab PO Q4H PRN #15 tab.rapdis 08/07/18 Allergies/Adverse Reactions: No Known Allergies Allergy (Verified 12/18/18 14:45) Review of Systems Constitutional: PRESENT: as per HPI, anorexia, fatigue. ABSENT: fever(s), headache(s), night sweats, weakness Eyes: ABSENT: visual disturbances Ears: ABSENT: hearing changes Cardiovascular: ABSENT: chest pain, dyspnea on exertion, edema, orthropnea, palpitations Respiratory: ABSENT: cough, hemoptysis Gastrointestinal: PRESENT: as per HPI, abdominal pain, bloating, constipation, heartburn, nausea, vomiting. ABSENT: coffee ground emesis, diarrhea Genitourinary: ABSENT: dysuria, hematuria Musculoskeletal: ABSENT: joint swelling Integumentary: ABSENT: rash, wounds Neurological: ABSENT: abnormal gait, abnormal speech, confusion, dizziness, focal weakness, syncope Endocrine: ABSENT: cold intolerance, heat intolerance, polydipsia, polyuria Hematologic/Lymphatic: ABSENT: easy bleeding, easy bruising Physical Exam Vital Signs: Temp Pulse Resp BP Pulse Ox 98.7 F 76 13 144/103 H 100 12/18/18 14:50 12/18/18 14:50 12/18/18 19:14 12/18/18 19:14 12/18/18 19:14 Intake & Output 12/17/18 12/18/18 12/19/18 11:59 11:59 11:59 Intake Total 1200 Balance 1200 Weight 60 kg General appearance: PRESENT: cooperative, mild distress, thin. ABSENT: dishevel ed Head exam: PRESENT: atraumatic, normocephalic Eye exam: PRESENT: conjunctival injection Ear exam: PRESENT: normal external ear exam Mouth exam: PRESENT: moist, tongue midline Neck exam: ABSENT: carotid bruit, JVD, lymphadenopathy, thyromegaly Respiratory exam: PRESENT: clear to auscultation brenda. ABSENT: rales, rhonchi, wheezes Cardiovascular exam: PRESENT: RRR. ABSENT: diastolic murmur, rubs, systolic murmur Pulses: PRESENT: normal dorsalis pedis pul Vascular exam: PRESENT: normal capillary refill GI/Abdominal exam: PRESENT: distended, hyperactive bowel sounds, soft, tenderness. ABSENT: firm, guarding, rigid Rectal exam: PRESENT: deferred Extremities exam: PRESENT: full ROM. ABSENT: calf tenderness, clubbing, pedal edema Neurological exam: PRESENT: alert, awake, oriented to person, oriented to place, oriented to time, oriented to situation, CN II-XII grossly intact. ABSENT: motor sensory deficit Psychiatric exam: PRESENT: appropriate affect, normal mood. ABSENT: homicidal ideation, suicidal ideation Skin exam: PRESENT: dry, intact, warm. ABSENT: cyanosis, rash Results Laboratory Results: 12/18/18 16:49 12/18/18 16:49 12/18/18 12/18/18 12/18/18 16:49 16:49 16:49 WBC 7.4 RBC 4.06 Hgb 10.0 L Hct 30.9 L MCV 76 L MCH 24.6 L MCHC 32.3 RDW 24.8 H Plt Count 387 Seg Neutrophils % Not Reportable Lymphocytes % Not Reportable Monocytes % Not Reportable Eosinophils % Not Reportable Basophils % Not Reportable Absolute Neutrophils Not Reportable Absolute Lymphocytes Not Reportable Absolute Monocytes Not Reportable Absolute Eosinophils Not Reportable Absolute Basophils Not Reportable Sodium 135.4 L Potassium 2.9 L* Chloride 93 L Carbon Dioxide 25 Anion Gap 17 BUN 13 Creatinine 0.58 Est GFR ( Amer) > 60 Est GFR (Non-Af Amer) > 60 Glucose 105 Calcium 9.0 Magnesium Total Bilirubin 0.6 AST 48 H ALT 29 Alkaline Phosphatase 452 H Total Protein 8.0 Albumin 3.9 Amylase 201 H Lipase 1174.2 H Urine Color YELLOW Urine Appearance SLIGHTLY-CLOUDY Urine pH 5.0 Ur Specific [place] 1.025 Urine Protein 100 H Urine Glucose (UA) NEGATIVE Urine Ketones 20 H Urine Blood MODERATE H Urine Nitrite NEGATIVE Ur Leukocyte Esterase NEGATIVE Urine WBC (Auto) 9 Urine RBC (Auto) 1 12/18/18 16:49 WBC RBC Hgb Hct MCV MCH MCHC RDW Plt Count Seg Neutrophils % Lymphocytes % Monocytes % Eosinophils % Basophils % Absolute Neutrophils Absolute Lymphocytes Absolute Monocytes Absolute Eosinophils Absolute Basophils Sodium Potassium Chloride Carbon Dioxide Anion Gap BUN Creatinine Est GFR ( Amer) Est GFR (Non-Af Amer) Glucose Calcium Magnesium 1.3 L Total Bilirubin AST ALT Alkaline Phosphatase Total Protein Albumin Amylase Lipase Urine Color Urine Appearance Urine pH Ur Specific [place] Urine Protein Urine Glucose (UA) Urine Ketones Urine Blood Urine Nitrite Ur Leukocyte Esterase Urine WBC (Auto) Urine RBC (Auto) Impressions: Abdomen Ultrasound 12/18/18 18:01 IMPRESSION: Pancreas body-tail Poorly seen secondary to acoustical interference from fat or from air in the bowel. Pancreatic duct is dilated at 9 mm in the head - neck region, there is a reported history of stent, unclear if this may reflect the stented segment.Heterogeneous pancreas parenchyma with some echogenic foci suggesting calcifications.FATTY INFILTRATION OF THE LIVER. 2.4 cm mildly echogenic nodule in the left liver corresponding to that seen on the prior study consistent with hemangioma. The other hemangiomas described previously are not identified. Tiny gallstones and small amount of sludge. Normal wall thickness. No pericholecystic fluid. Abdomen/Pelvis CT 12/18/18 19:15 IMPRESSION: Findings compatible with acute on chronic pancreatitis, particularly involving the pancreatic head. There is associated reactive circumferential wall thickening involving the second and third portions of the duodenum. Short interval follow-up CT is recommended to document improvement of these findings as a pancreatic head malignancy could technically have a similar appearance. Pre-existing biliary stent appears to be located within the proximal duodenum emanating towards the liver hilum. It is difficult to confirm whether the stent is located within the common bile duct (which would indicate an unusual configuration of the common bile duct) or has migrated to its present location. Correlate with clinical history as well as prior ERCP. Currently, there is moderate dilatation of the intrahepatic bile ducts. Benign liver hemangiomas. TECHNICAL DOCUMENTATION: Quality ID # 436: Final reports with documentation of one or more dose reduction techniques (e.g., Automated exposure control, adjustment of the mA and/or kV according to patient size, use of iterative reconstruction technique) copyright 2011 [employer]- All Rights Reserved Assessment and Plan - Diagnosis (1) Chronic pancreatitis due to acute alcohol intoxication Is this a current diagnosis for this admission?: Yes Plan: Medical floor observation, symptomatic management, IV fluid electrolyte repletion as needed. (2) Abdominal pain Is this a current diagnosis for this admission?: Yes Plan: Secondary to #1, NSAIDs. Limit narcotics secondary to history of addiction. (3) Hypomagnesemia Is this a current diagnosis for this admission?: Yes Plan: Secondary to #1, IV repletion, follow-up chemistry and magnesium. (4) Anemia Is this a current diagnosis for this admission?: Yes Plan: Microcytic anemia. Continue outpatient iron (5) Hypokalemia Is this a current diagnosis for this admission?: Yes Plan: Secondary to #1, repletion as needed, follow-up chemistry (6) Depression Is this a current diagnosis for this admission?: Yes Plan: Denies homicidal or suicidal ideation. Resume outpatient Prozac - Time Time Spent with patient: 35 or more minutes - Inpatient Certification Medical Necessity: Need Close Monitoring Due to Risk of Patient Decompensation
--- NOTE | 2018-12-19 00:03 | EKG REPORT ---
SEVERITY:- ABNORMAL ECG - SINUS RHYTHM NONSPECIFIC REPOL ABNORMALITY, DIFFUSE LEADS : Confirmed by: Ferny Cody 19-Dec-2018 00:02:08
[2018-12-19] MEDS: MAGNESIUM SULFATE/D5W 1 GM/100 ML RTUPB IV SCH (00:45)
[2018-12-19] MEDS: KETOROLAC TROMETHAMINE INJ/PF 30 MG/1 ML SDV IV PRN ×4 (03:15→22:47)
[2018-12-19] MEDS: PROMETHAZINE HCL 25 MG TABLET PO PRN ×2 (03:29→22:45)
[2018-12-19 06:28] LABS: ABSOLUTE EOSINOPHILS # (AUTO) 0.1 10^3/uL (0.0-0.6); ABSOLUTE LYMPHOCYTES (AUTO) 1.2 10^3/uL (0.5-4.7); ABSOLUTE MONOCYTES (AUTO) 0.4 10^3/uL (0.1-1.4); ABSOLUTE NEUT (AUTO) 2.9 10^3/uL (1.7-8.2); BASOPHILS % (AUTO) 0.7 % (0-2); EOSINOPHILS % (AUTO) 3.1 % (0-6); HEMATOCRIT 25.8 % (36.0-47.0); HEMOGLOBIN 8.3 g/dL (12.0-15.5); LYMPHOCYTES % (AUTO) 26.7 % (13-45); MEAN CORPUSCULAR HEMOGLOBIN 24.9 pg (27.0-33.4); MEAN CORPUSCULAR HGB CONC 32.3 g/dL (32.0-36.0); MEAN CORPUSCULAR VOLUME 77 fl (80-97); MONOCYTES % (AUTO) 7.6 % (3-13); PLATELET COUNT 250 10^3/uL (150-450); RED BLOOD COUNT 3.34 10^6/uL (3.72-5.28); RED CELL DISTRIBUTION WIDTH 25.4 % (11.5-14.0); SEGMENTED NEUTROPHILS % (AUTO) 61.9 % (42-78); TOTAL CELLS COUNTED % (AUTO) 100 %; WHITE BLOOD COUNT 4.6 10^3/uL (4.0-10.5)
[2018-12-19 06:51] LABS: ALANINE AMINOTRANSFERASE 22 U/L (9-52); ALBUMIN 2.8 g/dL (3.5-5.0); ALKALINE PHOSPHATASE 452 U/L (38-126); ANION GAP 11 (5-19); ASPARTATE AMINO TRANSFERASE 48 U/L (14-36); BILIRUBIN,DIRECT 0.3 mg/dL (0.0-0.4); BILIRUBIN,TOTAL 0.4 mg/dL (0.2-1.3); BLOOD UREA NITROGEN 8 mg/dL (7-20); CARBON DIOXIDE 21 mmol/L (22-30); CHLORIDE 103 mmol/L (98-107); GLUCOSE 89 mg/dL (75-110); SODIUM 135.1 mmol/L (137-145)
[2018-12-19 06:55] LABS: ANISOCYTOSIS 3+; HYPOCHROMASIA 1+; POIKILOCYTOSIS SLIGHT; POLYCHROMASIA SLIGHT
[2018-12-19 06:57] LABS: PLATELET COMMENT ADEQUATE; PLATELET LARGE PRESENT; POTASSIUM 2.8 mmol/L (3.6-5.0)
[2018-12-19] MEDS: CLONAZEPAM 1 MG TABLET PO SCH ×3 (07:31→21:45)
[2018-12-19] MEDS: HEPARIN SOD (PORCINE) 5,000 UNIT/ML 1 ML SYRINGE SUBCUT SCH ×3 (07:31→21:46)
[2018-12-19] MEDS: NORMAL SALINE 1000 ML 1,000 ML IV PRN (08:03)
[2018-12-19 08:23] LABS: APPEARANCE,URINE CLEAR; BILIRUBIN,URINE NEGATIVE (NEGATIVE); COLOR,URINE YELLOW; GLUCOSE, URINE NEGATIVE (NEGATIVE); KETONES,URINE 80 mg/dL (NEGATIVE); LEUKOCYTE ESTERASE,URINE NEGATIVE (NEGATIVE); NITRITE,URINE NEGATIVE (NEGATIVE); PROTEIN,URINE NEGATIVE (NEGATIVE); URINE SPECIFIC GRAVITY 1.024; UROBILINOGEN,URINE NEGATIVE mg/dL (<2.0)
[2018-12-19 08:37] LABS: URINE AMPHETAMINES SCREEN NEGATIVE; URINE BARBITURATES SCREEN NEGATIVE; URINE BENZODIAZEPINES SCREEN NEGATIVE; URINE COCAINE SCREEN NEGATIVE; URINE MARIJUANA (THC) SCREEN NEGATIVE; URINE METHADONE SCREEN NEGATIVE; URINE PHENCYCLIDINE SCREEN NEGATIVE
[2018-12-19] MEDS: FAMOTIDINE INJ/PF 20 MG/2 ML SDV IV SCH ×2 (09:19→21:46)
[2018-12-19] MEDS: FLUOXETINE HCL 20 MG CAPSULE PO SCH ×2 (09:20→09:32)
[2018-12-19] MEDS: POTASSIUM CHLORIDE 10 MEQ CAPSULE.ER PO ONE ×2 (09:20→09:32)
[2018-12-19] MEDS: POTASSIUM CHLORIDE 20 MEQ/50 ML RTU IV SCH ×4 (11:04→22:49)
[2018-12-19] MEDS: OXYCODONE-ACETAMINOPHEN 5-325 MG TABLET PO PRN ×2 (13:35→20:43)
--- NOTE | 2018-12-19 15:11 | PDOC PROGRESS REPORT ---
Subjective Progress Note for:: 12/19/18 Subjective:: This is 38 years old female patient with past medical history of depression, macrocytic anemia, history of alcohol induced chronic pancreatitis, depression and tobacco dependence she presented with 1 day history of abdominal pain, nausea, vomiting. Her blood work shows lipase of 1174.2. Patient is being managed conservatively with bowel rest pain control and IV hydration. Reason For Visit: ACUTE ON CHRONIC ALCOHOLIC PANCREATITIS Physical Exam Vital Signs: Temp Pulse Resp BP Pulse Ox 97.4 F 75 14 135/98 H 100 12/19/18 11:32 12/19/18 11:32 12/19/18 11:32 12/19/18 11:32 12/19/18 11:32 Intake & Output 12/18/18 12/19/18 12/20/18 06:59 06:59 06:59 Intake Total 2200 50 Balance 2200 50 Weight 62.8 kg General appearance: PRESENT: no acute distress, well-developed, well-nourished Head exam: PRESENT: atraumatic, normocephalic Eye exam: PRESENT: conjunctiva pink, EOMI, PERRLA. ABSENT: scleral icterus Ear exam: PRESENT: normal external ear exam Mouth exam: PRESENT: moist, tongue midline Neck exam: ABSENT: carotid bruit, JVD, lymphadenopathy, thyromegaly Respiratory exam: PRESENT: clear to auscultation brenda. ABSENT: rales, rhonchi, wheezes Cardiovascular exam: PRESENT: RRR. ABSENT: diastolic murmur, rubs, systolic murmur Pulses: PRESENT: normal dorsalis pedis pul Vascular exam: PRESENT: normal capillary refill GI/Abdominal exam: PRESENT: tenderness Rectal exam: PRESENT: deferred Extremities exam: PRESENT: full ROM. ABSENT: calf tenderness, clubbing, pedal edema Neurological exam: PRESENT: alert, awake, oriented to person, oriented to place, oriented to time, oriented to situation, CN II-XII grossly intact. ABSENT: motor sensory deficit Psychiatric exam: PRESENT: appropriate affect, normal mood. ABSENT: homicidal ideation, suicidal ideation Skin exam: PRESENT: dry, intact, warm. ABSENT: cyanosis, rash Results Laboratory Results: 12/19/18 05:54 12/19/18 05:54 12/18/18 12/18/18 12/18/18 16:49 16:49 16:49 WBC 7.4 RBC 4.06 Hgb 10.0 L Hct 30.9 L MCV 76 L MCH 24.6 L MCHC 32.3 RDW 24.8 H Plt Count 387 Seg Neutrophils % Not Reportable Lymphocytes % Not Reportable Monocytes % Not Reportable Eosinophils % Not Reportable Basophils % Not Reportable Absolute Neutrophils Not Reportable Absolute Lymphocytes Not Reportable Absolute Monocytes Not Reportable Absolute Eosinophils Not Reportable Absolute Basophils Not Reportable Sodium 135.4 L Potassium 2.9 L* Chloride 93 L Carbon Dioxide 25 Anion Gap 17 BUN 13 Creatinine 0.58 Est GFR ( Amer) > 60 Est GFR (Non-Af Amer) > 60 Glucose 105 Calcium 9.0 Magnesium Total Bilirubin 0.6 AST 48 H ALT 29 Alkaline Phosphatase 452 H Total Protein 8.0 Albumin 3.9 Amylase 201 H Lipase 1174.2 H Urine Color YELLOW Urine Appearance SLIGHTLY-CLOUDY Urine pH 5.0 Ur Specific [place] 1.025 Urine Protein 100 H Urine Glucose (UA) NEGATIVE Urine Ketones 20 H Urine Blood MODERATE H Urine Nitrite NEGATIVE Ur Leukocyte Esterase NEGATIVE Urine WBC (Auto) 9 Urine RBC (Auto) 1 12/18/18 12/19/18 12/19/18 16:49 05:40 05:54 WBC 4.6 RBC 3.34 L Hgb 8.3 L Hct 25.8 L MCV 77 L MCH 24.9 L MCHC 32.3 RDW 25.4 H Plt Count 250 Seg Neutrophils % 61.9 Lymphocytes % 26.7 Monocytes % 7.6 Eosinophils % 3.1 Basophils % 0.7 Absolute Neutrophils 2.9 Absolute Lymphocytes 1.2 Absolute Monocytes 0.4 Absolute Eosinophils 0.1 Absolute Basophils 0.0 Sodium Potassium Chloride Carbon Dioxide Anion Gap BUN Creatinine Est GFR ( Amer) Est GFR (Non-Af Amer) Glucose Calcium Magnesium 1.3 L Total Bilirubin AST ALT Alkaline Phosphatase Total Protein Albumin Amylase Lipase Urine Color YELLOW Urine Appearance CLEAR Urine pH 7.0 Ur Specific [place] 1.024 Urine Protein NEGATIVE Urine Glucose (UA) NEGATIVE Urine Ketones 80 H Urine Blood MODERATE H Urine Nitrite NEGATIVE Ur Leukocyte Esterase NEGATIVE Urine WBC (Auto) 1 Urine RBC (Auto) 1 12/19/18 05:54 WBC RBC Hgb Hct MCV MCH MCHC RDW Plt Count Seg Neutrophils % Lymphocytes % Monocytes % Eosinophils % Basophils % Absolute Neutrophils Absolute Lymphocytes Absolute Monocytes Absolute Eosinophils Absolute Basophils Sodium 135.1 L Potassium 2.8 L* Chloride 103 Carbon Dioxide 21 L Anion Gap 11 BUN 8 Creatinine 0.42 L Est GFR ( Amer) > 60 Est GFR (Non-Af Amer) > 60 Glucose 89 Calcium 8.0 L Magnesium Total Bilirubin 0.4 AST 48 H ALT 22 Alkaline Phosphatase 452 H Total Protein 6.0 L Albumin 2.8 L Amylase Lipase Urine Color Urine Appearance Urine pH Ur Specific [place] Urine Protein Urine Glucose (UA) Urine Ketones Urine Blood Urine Nitrite Ur Leukocyte Esterase Urine WBC (Auto) Urine RBC (Auto) Impressions: Abdomen Ultrasound 12/18/18 18:01 IMPRESSION: Pancreas body-tail Poorly seen secondary to acoustical interference from fat or from air in the bowel. Pancreatic duct is dilated at 9 mm in the head - neck region, there is a reported history of stent, unclear if this may reflect the stented segment.Heterogeneous pancreas parenchyma with some echogenic foci suggesting calcifications.FATTY INFILTRATION OF THE LIVER. 2.4 cm mildly echogenic nodule in the left liver corresponding to that seen on the prior study consistent with hemangioma. The other hemangiomas described previously are not identified. Tiny gallstones and small amount of sludge. Normal wall thickness. No pericholecystic fluid. Abdomen/Pelvis CT 12/18/18 19:15 IMPRESSION: Findings compatible with acute on chronic pancreatitis, particularly involving the pancreatic head. There is associated reactive circumferential wall thickening involving the second and third portions of the duodenum. Short interval follow-up CT is recommended to document improvement of these findings as a pancreatic head malignancy could technically have a similar appearance. Pre-existing biliary stent appears to be located within the proximal duodenum emanating towards the liver hilum. It is difficult to confirm whether the stent is located within the common bile duct (which would indicate an unusual configuration of the common bile duct) or has migrated to its present location. Correlate with clinical history as well as prior ERCP. Currently, there is moderate dilatation of the intrahepatic bile ducts. Benign liver hemangiomas. TECHNICAL DOCUMENTATION: Quality ID # 436: Final reports with documentation of one or more dose reduction techniques (e.g., Automated exposure control, adjustment of the mA and/or kV according to patient size, use of iterative reconstruction technique) copyright 2011 [employer]- All Rights Reserved Assessment and Plan - Diagnosis (1) Hypokalemia Is this a current diagnosis for this admission?: Yes Plan: Is being repleted with Jonas kaplan. We will check her BMP in a.m. (2) Hypomagnesemia Is this a current diagnosis for this admission?: Yes Plan: Is being repleted with IV magnesium sulfate. (3) Acute on chronic pancreatitis Is this a current diagnosis for this admission?: Yes Plan: Patient has prior history of alcohol abuse. This time she denied alcohol use. Patient is currently being treated conservatively with bowel rest pain control and IV hydration. We will check her lipase level in a.m. (4) Depression Is this a current diagnosis for this admission?: Yes Plan: Continue her home medication (5) Microcytic anemia Is this a current diagnosis for this admission?: Yes Plan: Her hemoglobin dropped from 10-8.3. We will give stool for occult blood. (6) History of alcohol abuse Is this a current diagnosis for this admission?: Yes Plan: Patient claims she is sober. (7) Tobacco dependence Is this a current diagnosis for this admission?: Yes Plan: Patient counseled and encouraged to quit smoking and she voices agreement.
[2018-12-19] MEDS: TRAZODONE HCL 50 MG TABLET PO SCH (21:46)
[2018-12-19] MEDS ORDERED: POTASSIUM CHLORIDE 20 MEQ/50 ML RTU IV SCH (22:30)
[2018-12-20 04:58] LABS: ABSOLUTE EOSINOPHILS # (AUTO) 0.1 10^3/uL (0.0-0.6); ABSOLUTE LYMPHOCYTES (AUTO) 1.4 10^3/uL (0.5-4.7); ABSOLUTE MONOCYTES (AUTO) 0.3 10^3/uL (0.1-1.4); BASOPHILS % (AUTO) 0.9 % (0-2); HEMATOCRIT 28.6 % (36.0-47.0); HEMOGLOBIN 9.2 g/dL (12.0-15.5); LYMPHOCYTES % (AUTO) 37.7 % (13-45); MEAN CORPUSCULAR HEMOGLOBIN 25.4 pg (27.0-33.4); MEAN CORPUSCULAR HGB CONC 32.2 g/dL (32.0-36.0); MEAN CORPUSCULAR VOLUME 79 fl (80-97); MONOCYTES % (AUTO) 7.4 % (3-13); PLATELET COUNT 244 10^3/uL (150-450); RED BLOOD COUNT 3.62 10^6/uL (3.72-5.28); RED CELL DISTRIBUTION WIDTH 26.7 % (11.5-14.0); TOTAL CELLS COUNTED % (AUTO) 100 %; WHITE BLOOD COUNT 3.8 10^3/uL (4.0-10.5)
[2018-12-20 05:20] LABS: ALANINE AMINOTRANSFERASE 24 U/L (9-52); ALKALINE PHOSPHATASE 439 U/L (38-126); ANION GAP 9 (5-19); ASPARTATE AMINO TRANSFERASE 29 U/L (14-36); BILIRUBIN,DIRECT 0.2 mg/dL (0.0-0.4); BILIRUBIN,TOTAL 0.2 mg/dL (0.2-1.3); BLOOD UREA NITROGEN 5 mg/dL (7-20); CALCIUM 8.3 mg/dL (8.4-10.2); CARBON DIOXIDE 22 mmol/L (22-30); CHLORIDE 108 mmol/L (98-107); GLUCOSE 128 mg/dL (75-110); LIPASE 648.5 U/L (23-300); POTASSIUM 3.1 mmol/L (3.6-5.0); SODIUM 139.2 mmol/L (137-145); TOTAL PROTEIN 6.3 g/dL (6.3-8.2)
[2018-12-20 05:24] LABS: ANISOCYTOSIS 3+; HYPOCHROMASIA 2+; PLATELET COMMENT ADEQUATE; POLYCHROMASIA SLIGHT
[2018-12-20 05:25] LABS: PLATELET LARGE PRESENT
[2018-12-20] MEDS: OXYCODONE-ACETAMINOPHEN 5-325 MG TABLET PO PRN ×3 (05:45→19:54)
[2018-12-20] MEDS: HEPARIN SOD (PORCINE) 5,000 UNIT/ML 1 ML SYRINGE SUBCUT SCH ×3 (05:45→22:08)
[2018-12-20] MEDS: CLONAZEPAM 1 MG TABLET PO SCH ×3 (05:46→22:09)
[2018-12-20] MEDS: KETOROLAC TROMETHAMINE INJ/PF 30 MG/1 ML SDV IV PRN ×3 (08:04→22:18)
[2018-12-20] MEDS: FAMOTIDINE INJ/PF 20 MG/2 ML SDV IV SCH ×2 (10:14→22:09)
[2018-12-20] MEDS: FLUOXETINE HCL 20 MG CAPSULE PO SCH (10:15)
[2018-12-20] MEDS: PROMETHAZINE HCL 25 MG TABLET PO PRN (11:07)
[2018-12-20] MEDS ORDERED: PROMETHAZINE HCL 25 MG TABLET PO PRN (12:12)
[2018-12-20] MEDS: POTASSIUM CHLORIDE 20 MEQ/50 ML RTU IV SCH ×4 (12:49→23:15)
--- NOTE | 2018-12-20 14:57 | PDOC PROGRESS REPORT ---
Subjective Progress Note for:: 12/20/18 Subjective:: I seen patient sitting up in bed. She reports this her abdominal pain is relatively has improved but she claims to still she is nauseous. Her lipase is trending down from 1100-648. Patient tolerates clear liquid diet. Reason For Visit: ACUTE ON CHRONIC ALCOHOLIC PANCREATITIS Physical Exam Vital Signs: Temp Pulse Resp BP Pulse Ox 98.3 F 83 15 185/110 H 100 12/20/18 11:20 12/20/18 11:20 12/20/18 11:20 12/20/18 11:20 12/20/18 11:20 Intake & Output 12/19/18 12/20/18 12/21/18 06:59 06:59 06:59 Intake Total 2200 1200 Balance 2200 1200 Weight 62.8 kg 65.3 kg General appearance: PRESENT: no acute distress, well-developed, well-nourished Head exam: PRESENT: atraumatic, normocephalic Eye exam: PRESENT: conjunctiva pink, EOMI, PERRLA. ABSENT: scleral icterus Ear exam: PRESENT: normal external ear exam Mouth exam: PRESENT: moist, tongue midline Neck exam: ABSENT: carotid bruit, JVD, lymphadenopathy, thyromegaly Respiratory exam: PRESENT: clear to auscultation brenda. ABSENT: rales, rhonchi, wheezes Cardiovascular exam: PRESENT: RRR. ABSENT: diastolic murmur, rubs, systolic murmur Pulses: PRESENT: normal dorsalis pedis pul Vascular exam: PRESENT: normal capillary refill GI/Abdominal exam: PRESENT: tenderness - Epigastric Rectal exam: PRESENT: deferred Extremities exam: PRESENT: full ROM. ABSENT: calf tenderness, clubbing, pedal edema Neurological exam: PRESENT: alert, awake, oriented to person, oriented to place, oriented to time, oriented to situation, CN II-XII grossly intact. ABSENT: motor sensory deficit Psychiatric exam: PRESENT: appropriate affect, normal mood. ABSENT: homicidal ideation, suicidal ideation Skin exam: PRESENT: dry, intact, warm. ABSENT: cyanosis, rash Results Laboratory Results: 12/20/18 04:20 12/20/18 04:20 12/19/18 12/20/18 12/20/18 23:15 04:20 04:20 WBC 3.8 L RBC 3.62 L Hgb 9.2 L Hct 28.6 L MCV 79 L MCH 25.4 L MCHC 32.2 RDW 26.7 H Plt Count 244 Seg Neutrophils % 51.0 Lymphocytes % 37.7 Monocytes % 7.4 Eosinophils % 3.0 Basophils % 0.9 Absolute Neutrophils 2.0 Absolute Lymphocytes 1.4 Absolute Monocytes 0.3 Absolute Eosinophils 0.1 Absolute Basophils 0.0 Sodium 139.2 Potassium 3.1 L Chloride 108 H Carbon Dioxide 22 Anion Gap 9 BUN 5 L Creatinine 0.40 L Est GFR ( Amer) > 60 Est GFR (Non-Af Amer) > 60 Glucose 128 H Calcium 8.3 L Magnesium 1.6 Total Bilirubin 0.2 AST 29 ALT 24 Alkaline Phosphatase 439 H Total Protein 6.3 Albumin 3.0 L Lipase 648.5 H Stool Occult Blood NEGATIVE Impressions: Abdomen Ultrasound 12/18/18 18:01 IMPRESSION: Pancreas body-tail Poorly seen secondary to acoustical interference from fat or from air in the bowel. Pancreatic duct is dilated at 9 mm in the head - neck region, there is a reported history of stent, unclear if this may reflect the stented segment.Heterogeneous pancreas parenchyma with some echogenic foci suggesting calcifications.FATTY INFILTRATION OF THE LIVER. 2.4 cm mildly echogenic nodule in the left liver corresponding to that seen on the prior study consistent with hemangioma. The other hemangiomas described previously are not identified. Tiny gallstones and small amount of sludge. Normal wall thickness. No pericho lecystic fluid. Abdomen/Pelvis CT 12/18/18 19:15 IMPRESSION: Findings compatible with acute on chronic pancreatitis, particularly involving the pancreatic head. There is associated reactive circumferential wall thickening involving the second and third portions of the duodenum. Short interval follow-up CT is recommended to document improvement of these findings as a pancreatic head malignancy could technically have a similar appearance. Pre-existing biliary stent appears to be located within the proximal duodenum emanating towards the liver hilum. It is difficult to confirm whether the stent is located within the common bile duct (which would indicate an unusual configuration of the common bile duct) or has migrated to its present location. Correlate with clinical history as well as prior ERCP. Currently, there is moderate dilatation of the intrahepatic bile ducts. Benign liver hemangiomas. TECHNICAL DOCUMENTATION: Quality ID # 436: Final reports with documentation of one or more dose reduction techniques (e.g., Automated exposure control, adjustment of the mA and/or kV according to patient size, use of iterative reconstruction technique) copyright 2011 [employer]- All Rights Reserved Assessment and Plan - Diagnosis (1) Hypokalemia Is this a current diagnosis for this admission?: Yes Plan: Still she is hypokalemic bit better than yesterday today her potassium is 3.1. I will give her 3 more K rider. (2) Hypomagnesemia Is this a current diagnosis for this admission?: Yes Plan: Improved (3) Acute on chronic pancreatitis Is this a current diagnosis for this admission?: Yes Plan: Her abdominal pain is improving. But still she is nauseous. Her lipase is trending down. (4) Depression Is this a current diagnosis for this admission?: Yes Plan: Continue her home medication (5) Microcytic anemia Is this a current diagnosis for this admission?: Yes Plan: Her hemoglobin dropped from 10-8.3. We will give stool for occult blood. (6) History of alcohol abuse Is this a current diagnosis for this admission?: Yes Plan: Patient claims she is sober. (7) Tobacco dependence Is this a current diagnosis for this admission?: Yes
[2018-12-20] MEDS: TRAZODONE HCL 50 MG TABLET PO SCH (22:09)
[2018-12-21 03:59] VITALS: BP 112/68
[2018-12-21] MEDS: HEPARIN SOD (PORCINE) 5,000 UNIT/ML 1 ML SYRINGE SUBCUT SCH (06:06)
[2018-12-21] MEDS: CLONAZEPAM 1 MG TABLET PO SCH (06:06)
[2018-12-21] MEDS: OXYCODONE-ACETAMINOPHEN 5-325 MG TABLET PO PRN (06:07)
[2018-12-21] MEDS: FLUOXETINE HCL 20 MG CAPSULE PO SCH (09:37)
[2018-12-21] MEDS: KETOROLAC TROMETHAMINE INJ/PF 30 MG/1 ML SDV IV PRN (09:38)
[2018-12-21] MEDS: FAMOTIDINE INJ/PF 20 MG/2 ML SDV IV SCH (09:38)
[2018-12-21 09:56] LABS: ANION GAP 9 (5-19); BLOOD UREA NITROGEN 3 mg/dL (7-20); CALCIUM 8.9 mg/dL (8.4-10.2); CARBON DIOXIDE 22 mmol/L (22-30); CHLORIDE 110 mmol/L (98-107); GLUCOSE 106 mg/dL (75-110); LIPASE 474.5 U/L (23-300); POTASSIUM 3.7 mmol/L (3.6-5.0); SODIUM 140.5 mmol/L (137-145)
--- NOTE | 2018-12-21 11:09 | PDOC DISCHARGE SUMMARY ---
General - Admit/Disc Date/PCP Admission Date/Primary Care Provider: 12/19/18 16:52 LISANDRA RIZZO MD Discharge Date: 12/21/18 - Discharge Diagnosis (1) Hypokalemia Is this a current diagnosis for this admission?: Yes (2) Hypomagnesemia Is this a current diagnosis for this admission?: Yes (3) Acute on chronic pancreatitis Is this a current diagnosis for this admission?: Yes (4) Depression Is this a current diagnosis for this admission?: Yes (5) Microcytic anemia Is this a current diagnosis for this admission?: Yes (6) History of alcohol abuse Is this a current diagnosis for this admission?: Yes (7) Tobacco dependence Is this a current diagnosis for this admission?: Yes - Additional Information Resuscitation Status: Full Code Home Medications: Cetirizine HCl [Zyrtec 10 mg Tablet] 1 tab PO DAILY 12/19/18 Fluticasone Propionate [Flonase Nasal Baker 50 Mcg/Baker 16 gm] 1 spray NASL Q12 12/19/18 Lipase/Protease/Amylase [Zenpep Dr 40,000 Units Capsule] 1 each PO TID 12/19/18 Oxycodone HCl/Acetaminophen [Percocet 7.5-325 mg Tablet] 1 each PO Q8HP PRN 12/19/18 Pantoprazole Sodium [Protonix [address] Packet] 40 mg PO DAILY 12/19/18 Trazodone HCl [Desyrel] 100 mg PO QHS 12/19/18 History of Present Illness History of Present Illness: HANH MULLINS is a 38 year old female with a past medical history of depression, alcohol dependence, acute and chronic pancreatitis, gastritis, iron deficiency anemia and tobacco. She presents with 48 hours of abdominal pain, nausea and vomiting gastric content. Patient reports hospitalization at [facility] where she had pseudocyst drainage and stent placement. CT of the abdomen in the emergency department is negative for re-recurrence of pseudocyst or necrotizing pancreatitis. She is referred to the hospitalist for admission. Denying alcohol use complaining of constipation. Hospital Course Hospital Course: This is 38 years old female patient with past medical history of depression, macrocytic anemia, history of alcohol induced chronic pancreatitis, depression and tobacco dependence she presented with 1 day history of abdominal pain, nausea, vomiting. Her blood work shows lipase of 1174.2. After aggressive hydration, bowel rest and pain control her lipase trended down to 474. Patient able to eat and tolerates well. Patient advised to remain sober. She is also advised to keep her upcoming appointment at [facility]. I will send her home with Phenergan and Percocet. Physical Exam Vital Signs: Temp Pulse Resp BP Pulse Ox 97.4 F 70 16 112/68 100 12/20/18 23:23 12/20/18 23:23 12/20/18 23:23 12/20/18 23:23 12/20/18 23:23 Intake & Output 12/20/18 12/21/18 12/22/18 06:59 06:59 06:59 Intake Total 1200 200 Balance 1200 200 Weight 65.3 kg 67 kg General appearance: PRESENT: no acute distress Head exam: PRESENT: atraumatic Eye exam: PRESENT: conjunctiva pink Respiratory exam: PRESENT: clear to auscultation brenda. ABSENT: rales, rhonchi, wheezes Cardiovascular exam: PRESENT: RRR. ABSENT: diastolic murmur, rubs, systolic murmur GI/Abdominal exam: PRESENT: tenderness Neurological exam: PRESENT: alert, awake, oriented to time, oriented to situation Results Laboratory Results: 12/20/18 04:20 12/21/18 08:56 12/21/18 08:56 Sodium 140.5 Potassium 3.7 Chloride 110 H Carbon Dioxide 22 Anion Gap 9 BUN 3 L Creatinine 0.43 L Est GFR ( Amer) > 60 Est GFR (Non-Af Amer) > 60 Glucose 106 Calcium 8.9 Lipase 474.5 H Impressions: Abdomen Ultrasound 12/18/18 18:01 IMPRESSION: Pancreas body-tail Poorly seen secondary to acoustical interference from fat or from air in the bowel. Pancreatic duct is dilated at 9 mm in the head - neck region, there is a reported history of stent, unclear if this may reflect the stented segment.Heterogeneous pancreas parenchyma with some echogenic foci suggesting calcifications.FATTY INFILTRATION OF THE LIVER. 2.4 cm mildly echogenic nodule in the left liver corresponding to that seen on the prior study consistent with hemangioma. The other hemangiomas described previously are not identified. Tiny gallstones and small amount of sludge. Normal wall thickness. No pericholecystic fluid. Abdomen/Pelvis CT 12/18/18 19:15 IMPRESSION: Findings compatible with acute on chronic pancreatitis, particularly involving the pancreatic head. There is associated reactive circumferential wall thickening involving the second and third portions of the duodenum. Short interval follow-up CT is recommended to document improvement of these findings as a pancreatic head malignancy could technically have a similar appearance. Pre-existing biliary stent appears to be located within the proximal duodenum emanating towards the liver hilum. It is difficult to confirm whether the stent is located within the common bile duct (which would indicate an unusual configuration of the common bile duct) or has migrated to its present location. Correlate with clinical history as well as prior ERCP. Currently, there is moderate dilatation of the intrahepatic bile ducts. Benign liver hemangiomas. TECHNICAL DOCUMENTATION: Quality ID # [id number]: Final reports with documentation of one or more dose reduction techniques (e.g., Automated exposure control, adjustment of the mA and/or kV according to patient size, use of iterative reconstruction technique) copyright 2011 [employer]- All Rights Reserved Qualifiers - * PATIENT BEING DISCHARGED WITH ANY OF THE FOLLOWING DIAGNOSIS: No
== END 2018-12-21 11:50 | disposition home or self-care (01) | DRG 440 ==
LOC: ER 14:41 → EH 22:37 → INTOOBSV 22:37 → 4N 12-19 04:45 → OBSVTOIN 12-19 16:52
PROVIDERS: ADMIT Internal Medicine; ATTEND Internal Medicine
DX: K85.20 Alcohol induced acute pancreatitis without necrosis or infection (principal); K86.0 Alcohol-induced chronic pancreatitis; F10.11 Alcohol abuse, in remission; E87.6 Hypokalemia; E83.42 Hypomagnesemia; D64.9 Anemia, unspecified; F32.9 Major depressive disorder, single episode, unspecified; F17.210 Nicotine dependence, cigarettes, uncomplicated; Y90.9 Presence of alcohol in blood, level not specified
CPT/HCPCS: 36415; 74177; 76705; 80048; 80053; 80307; 81001; 82150; 82272; 83690; 83735; 85025; 93005; 93010; 93976; 96365; 96366; 96368; 96375; 96376; 99285; G0378; J1644; J1885; J2405; J3010; J3475; J3480; J7030; J7120; S0028

== ENCOUNTER 2019-03-13 11:00 | Emergency (ER) | payer BC ==
[2019-03-13 11:15] VITALS: BP 117/87
[2019-03-13] MEDS ORDERED: NORMAL SALINE 500 ML IV PRN (11:42)
--- NOTE | 2019-03-13 11:47 | ER Document Report ---
ED Medical Screen (RME) - General Chief Complaint: Nausea/Vomiting Stated Complaint: NAUSEA/VOMITING Time Seen by Provider: 03/13/19 11:35 Primary Care Provider: LISANDRA RIZZO MD [Primary Care Provider] - Follow up as needed Mode of Arrival: Ambulatory Information source: Patient TRAVEL OUTSIDE OF THE [place] IN LAST 30 DAYS: No - HPI Notes: 03/13/19 11:43 39-year-old female with a history of pancreatitis presents to the ED for complaints of nausea vomiting diarrhea for the, abdominal pain weakness for the last day. Has tried [id number] antiemetic medication without relief. Patient thinks this may be her pancreas is flaring. No fever or chills, denies any rash. He is unable to drink or eat anything at this time. Denies any heart pain or shortness of breath. Patient is established with [facility] for her pancreatic issues PHYSICAL EXAMINATION: GENERAL: Well-appearing, well-nourished and in no acute distress. HEAD: Atraumatic, normocephalic. LUNGS: Breath sounds clear to auscultation bilaterally and equal. No wheezes rales or rhonchi. HEART: Regular rate and rhythm without murmurs ABDOMEN: Soft, nontender, nondistended abdomen. No guarding, no rebound. No masses appreciated. Female : deferred Musculoskeletal: Normal range of motion, no pitting or edema. No cyanosis. NEUROLOGICAL: Cranial nerves grossly intact. Normal speech, normal gait. Normal sensory, motor exams PSYCH: Normal mood, normal affect. SKIN: Warm, Dry, normal turgor, no rashes or lesions noted. I have greeted and performed a rapid initial assessment of this patient. A comprehensive ED assessment and evaluation of the patient, analysis of test results and completion of medical decision making process will be conducted by an additional ED providers. - Related Data Allergies/Adverse Reactions: No Known Allergies Allergy (Verified 03/13/19 11:32) Past Medical History - Past Medical History Cardiac Medical History: Denies: Hx Congestive Heart Failure, Hx Heart Attack, Hx Hypertension Pulmonary Medical History: Reports: Hx Bronchitis Denies: Hx Asthma, Hx COPD, Hx Pneumonia, Hx Tuberculosis Neurological Medical History: Denies: Hx Cerebrovascular Accident, Hx Seizures Renal/ Medical History: Denies: Hx End Stage Renal Disease, Hx Kidney Stones, Hx Peritoneal Dialysis GI Medical History: Reports: Hx Gastroesophageal Reflux Disease. Denies: Hx Cirrhosis, Hx Hepatitis, Hx Hiatal Hernia, Hx Ulcer Musculoskeltal Medical History: Denies Hx Arthritis, Denies Hx Multiple Sclerosis Psychiatric Medical History: Reports: Hx Depression Denies: Hx Bipolar Disorder, Hx Schizophrenia Infectious Medical History: Denies: Hx Hepatitis Past Surgical History: Reports: Hx Abdominal Surgery - pancreatic stents, Hx Tubal Ligation. Denies: Hx Hysterectomy, Hx Mastectomy, Hx Open Heart Surgery, Hx Pacemaker - Immunizations Hx Diphtheria, Pertussis, Tetanus Vaccination: Yes Physical Exam - Vital signs Vitals: Temp Pulse Resp BP Pulse Ox 98.0 F 76 20 117/87 H 100 03/13/19 11:13 03/13/19 11:13 03/13/19 11:13 03/13/19 11:13 03/13/19 11:13 Course - Vital Signs Vital signs: Temp Pulse Resp BP Pulse Ox 98.0 F 76 20 117/87 H 100 03/13/19 11:13 03/13/19 11:13 03/13/19 11:13 03/13/19 11:13 03/13/19 11:13 Doctor's Discharge - Discharge Referrals: LISANDRA RIZZO MD [Primary Care Provider] - Follow up as needed
--- NOTE | 2019-03-13 12:11 | RADIOLOGY REPORT (SQ) ---
EXAM DESCRIPTION: CHEST SINGLE VIEW COMPLETED DATE/TIME: 03/13/2019 12:00 pm REASON FOR STUDY: epigstric pain, dedhyration COMPARISON: 07/27/2011 EXAM PARAMETERS: NUMBER OF VIEWS: One view. TECHNIQUE: Single frontal radiographic view of the chest acquired. RADIATION DOSE: NA LIMITATIONS: None. FINDINGS: LUNGS AND PLEURA: No opacities, masses or pneumothorax. Benign calcified nodules present bilaterally. No pleural effusion. MEDIASTINUM AND HILAR STRUCTURES: No masses. Contour normal. HEART AND VASCULAR STRUCTURES: Heart normal in size. Normal vasculature. BONES: No acute findings. HARDWARE: None in the chest. OTHER: No other significant finding. IMPRESSION: No acute abnormality of the lungs in frontal projection. TECHNICAL DOCUMENTATION: JOB ID: [id number] [employer]- All Rights Reserved Reading location - IP/workstation name: [email or web address]
[2019-03-13 12:16] LABS: ABSOLUTE BASOPHILS # (AUTO) 0.1 10^3/uL (0.0-0.2); ABSOLUTE EOSINOPHILS # (AUTO) 0.2 10^3/uL (0.0-0.6); ABSOLUTE LYMPHOCYTES (AUTO) 1.6 10^3/uL (0.5-4.7); ABSOLUTE MONOCYTES (AUTO) 0.4 10^3/uL (0.1-1.4); BASOPHILS % (AUTO) 0.8 % (0-2); EOSINOPHILS % (AUTO) 2.3 % (0-6); HEMATOCRIT 35.1 % (36.0-47.0); HEMOGLOBIN 11.6 g/dL (12.0-15.5); LYMPHOCYTES % (AUTO) 22.2 % (13-45); MEAN CORPUSCULAR HEMOGLOBIN 30.1 pg (27.0-33.4); MEAN CORPUSCULAR HGB CONC 32.9 g/dL (32.0-36.0); MEAN CORPUSCULAR VOLUME 91 fl (80-97); MONOCYTES % (AUTO) 5.4 % (3-13); PLATELET COUNT 493 10^3/uL (150-450); RED BLOOD COUNT 3.84 10^6/uL (3.72-5.28); SEGMENTED NEUTROPHILS % (AUTO) 69.3 % (42-78); TOTAL CELLS COUNTED % (AUTO) 100 %; WHITE BLOOD COUNT 7.2 10^3/uL (4.0-10.5)
[2019-03-13 12:38] LABS: ALANINE AMINOTRANSFERASE 36 U/L (9-52); ALBUMIN 3.2 g/dL (3.5-5.0); ALKALINE PHOSPHATASE 352 U/L (38-126); ANION GAP 13 (5-19); ASPARTATE AMINO TRANSFERASE 76 U/L (14-36); BILIRUBIN,DIRECT 0.5 mg/dL (0.0-0.4); BILIRUBIN,TOTAL 0.6 mg/dL (0.2-1.3); BLOOD UREA NITROGEN 6 mg/dL (7-20); CALCIUM 8.7 mg/dL (8.4-10.2); CARBON DIOXIDE 24 mmol/L (22-30); CHLORIDE 101 mmol/L (98-107); CREATINE KINASE 39 U/L (30-135); GLUCOSE 98 mg/dL (75-110); LIPASE 426.4 U/L (23-300); POTASSIUM 3.6 mmol/L (3.6-5.0); TOTAL PROTEIN 7.1 g/dL (6.3-8.2)
[2019-03-13 12:43] LABS: ALCOHOL < 10 mg/dL (NONE DETECTED)
[2019-03-13] MEDS ORDERED: HYDROMORPHONE HCL INJ/PF 2 MG/ML AMPULE IV ONE (12:46)
[2019-03-13] MEDS ORDERED: ONDANSETRON HCL INJ/PF 4 MG/2 ML SDV IV ONE (12:46)
[2019-03-13] MEDS ORDERED: METOCLOPRAMIDE HCL INJ/PF 10 MG/2 ML SDV IV ONE (12:47)
[2019-03-13 12:49] LABS: CREATINE KINASE MB 1.49 ng/mL (<4.55)
[2019-03-13 12:51] LABS: TROPONIN I < 0.012 ng/mL
--- NOTE | 2019-03-13 12:53 | ER Document Report ---
ED GI/ - General Chief Complaint: Nausea/Vomiting Stated Complaint: NAUSEA/VOMITING Time Seen by Provider: 03/13/19 11:35 Primary Care Provider: LISANDRA RIZZO MD [Primary Care Provider] - Follow up as needed Mode of Arrival: Ambulatory Notes: Patient says she feels dehydrated and says that she has chronic abdominal pain and vomiting and diarrhea secondary to chronic pancreatitis. She says that she has been in bed for the past 5 to 6 days and unable to keep down anything but some water. She is followed by the transplant team at [facility] and is planned to get a mechanical pancreas implant, but no date has been set yet. Patient complains of pain in the upper half of the abdomen. Denies any fevers. Takes Zofran and Phenergan at home and they are not helping. Patient says she does not have any pain medications. She is had a couple of stents placed in her pancreas, the most recent being removed a couple of months ago. Patient says that she is lost 40 pounds since December. TRAVEL OUTSIDE OF THE [place] IN LAST 30 DAYS: No - Related Data Allergies/Adverse Reactions: No Known Allergies Allergy (Verified 03/13/19 11:32) Past Medical History - General Information source: Patient - Social History Smoking Status: Current Every Day Smoker Chew tobacco use (# tins/day): No Frequency of alcohol use: several months ago Family History: Reviewed & Not Pertinent Patient has suicidal ideation: No Patient has homicidal ideation: No Pulmonary Medical History: Reports: Hx Bronchitis GI Medical History: Reports: Hx Gastroesophageal Reflux Disease, Hx Pancreatitis Psychiatric Medical History: Reports: Hx Depression Infectious Medical History: Denies: Hx Hepatitis Past Surgical History: Reports: Hx Abdominal Surgery - pancreatic stents, Hx Tubal Ligation. Denies: Hx Hysterectomy, Hx Mastectomy, Hx Open Heart Surgery, Hx Pacemaker - Immunizations Hx Diphtheria, Pertussis, Tetanus Vaccination: Yes Review of Systems - Review of Systems Notes: REVIEW OF SYSTEMS: CONSTITUTIONAL : Denies fever. EENT: Denies eye, ear, nose or mouth or throat pain or other symptoms. CARDIOVASCULAR: Denies chest pain. RESPIRATORY: Denies cough, chest congestion, or shortness of breath. GASTROINTESTINAL: See HPI. GENITOURINARY: Denies difficulty or painful urinating, urinary frequency, blood in urine. MUSCULOSKELETAL: Denies back or neck pain. Denies joint pain or swelling. SKIN: Denies rash or skin lesions. NEUROLOGICAL: Denies LOC or altered mental status. Denies headache. Denies sensory loss or motor deficits. ALL OTHER SYSTEMS REVIEWED AND NEGATIVE. Physical Exam - Vital signs Vitals: Temp Pulse Resp BP Pulse Ox 98.0 F 76 20 117/87 H 100 03/13/19 11:13 03/13/19 11:13 03/13/19 11:13 03/13/19 11:13 03/13/19 11:13 Interpretation: Normal Notes: PHYSICAL EXAMINATION: GENERAL: Well-appearing, in no acute distress. Vital signs are all normal. No hypotension,, no tachycardia, no fever. HEAD: Atraumatic, normocephalic. EYES: Pupils equal round and reactive to light, extraocular movements intact. ENT: oropharynx clear without exudates. Moist mucous membranes. NECK: Normal range of motion, supple. LUNGS: Breath sounds clear and equal bilaterally. HEART: Regular rate and rhythm without murmurs. ABDOMEN: tender upper midline epigastrium. Some very mild resistant to palpatio n, but no true guarding or rebound present. No masses felt. Bowel sounds present. BACK: No tenderness throughout entire back. EXTREMITIES: Normal range of motion without pain. NEUROLOGICAL: Normal speech, normal gait. Normal sensory, motor, and reflex exams. Awake, alert, and oriented x3. Cranial nerves normal. PSYCH: Normal mood, normal affect. SKIN: Warm, dry, no rashes. Course - Re-evaluation Re-evalutation: 03/13/19 12:54 Patient will be given antiemetics as well as a couple of liters of saline IV to try to effect symptomatic relief. - Vital Signs Vital signs: Temp Pulse Resp BP Pulse Ox 98.0 F 76 20 117/87 H 100 03/13/19 11:13 03/13/19 11:13 03/13/19 11:13 03/13/19 11:13 03/13/19 11:13 - Laboratory Result Diagrams: 03/13/19 11:55 03/13/19 11:55 Laboratory results interpreted by me: 03/13/19 03/13/19 03/13/19 11:55 11:55 14:03 Hgb 11.6 L Hct 35.1 L RDW 24.0 H Plt Count 493 H BUN 6 L Direct Bilirubin 0.5 H AST 76 H Alkaline Phosphatase 352 H Albumin 3.2 L Lipase 426.4 H Urine Protein 30 H Urine Ketones 20 H Discharge - Discharge Clinical Impression: Chronic pancreatitis, Vomiting and diarrhea, Pancreatic pseudocyst Condition: Stable Disposition: HOME, SELF-CARE Additional Instructions: Pancreatitis Pancreatitis is an inflammation of the pancreas, an organ at the back of your abdomen. The pancreas produces insulin and enzymes that digest your food. Pancreatitis can be caused by gallstones in the bile duct, by alcohol or viruses, or by excess fat or calcium in the blood stream. Occasionally, pancreatitis occurs when a stomach ulcer thomas through into the pancreas. We try to find the cause of pancreatitis, but some tests can't be done until the pancreas heals. The usual symptoms of pancreatitis are pain in the pit of the stomach that goes straight through to the back, vomiting, and low-grade fever. Severe cases require hospital admission, but many patients with mild pancreatitis do well at home. You will probably need medicine for pain and for vomiting. Sometimes we prescribe medicine to decrease stomach acid secretion and to decrease flow of pancreatic juices. Start with a diet of clear liquids (soda pop, juices). When the pain is decreasing, you can add some simple starches (potato, toast, applesauce). Avoid proteins and fats until you are completely painfree. When you're better, your doctor may suggest treatment to prevent future pancreatitis (such as gallbladder removal). Avoid alcohol forever. Get immediate treatment for any future episodes. Contact your doctor at once or return here if you have increasing pain, shortness of breath, general swelling, increasing size of the abdomen, continued vomiting, muscle spasms, or other new symptoms. VOMITING: Vomiting (or nausea without vomiting) can be caused by many other different problems. It can mean that something's wrong with the stomach, such as ulcers or inflammation or the intestinal tract, such as appendicitis. But it can also be a symptom of a problem that has nothing to do with the stomach or intestines. Vomiting is common with severe headaches, earaches, tonsillitis, and kidney infections, etc. We see it with pneumonia or heart attacks. Drugs can cause nausea and vomiting. Many abdominal problems cause vomiting; for example, gallstones, kidney stones, pancreatitis, and intestinal obstruction (blocked bowels). In most cases, curing the vomiting depends on fixing the problem that caused it. For temporary relief, we may use an anti-nausea medicine. For home use, we can prescribe suppositories, chewable pills, pills that dissolve in the mouth, or liquid anti-nausea drugs. If the vomiting seems to be caused by a problem in the stomach, acid-suppressing drugs may be prescribed as well. It's important to avoid dehydration. Sip small amounts of clear liquids (soft drinks, tea, broth, etc) . Try to take fluids frequently even if you are vomiting to prevent dehydration. Take increasing amounts of fluid and when liquids are being consumed successfully, advance to small amounts of bland food (toast, soups, mashed potatoes, etc.) until you are able to resume a regular diet. Avoid aspirin, tobacco, and alcohol. If the vomiting worsens, if the problem that's making you vomit worsens, or if there's evidence of bleeding in the stomach (such as black, tarry stool, or bloody or black vomit), you should return immediately. Also, return if abdominal pain worsens or becomes localized to one area or you develop high fever. Call your doctor if you aren't improved in 24 hours. DIARRHEA, NON-SPECIFIC: Diarrhea means frequent, watery stools. There are many causes. Any problem that keeps the intestinal tract from absorbing water from the stool can lead to diarrhea. A sudden new diarrhea problem is usually caused by a virus, food sensitivity, toxic bacteria, or drugs. In this case, we expect the problem to go away soon. Testing is done only if you seem seriously ill from the diarrhea. If you have chronic diarrhea, or diarrhea that keeps coming back, we need to find out why. Chronic diarrhea can be due to inflammation of the bowels such as Crohn's disease or ulcerative colitis, food sensitivity such as intolerance to lactose or wheat protein, irritable bowel syndrome, and other problems. If your diarrhea is a significant problem but it's not clear why you have it, we'll refer you to a specialist for further testing. During an episode of diarrhea, drink small amounts (two to six ounces) of clear liquids (soft drinks, sport drinks, herb teas, broth, etc). Take fluids frequently to prevent dehydration. It's usually not a problem to take mild anti- diarrhea medication such as Kaopectate or Pepto-Bismol. As the diarrhea eases, advance to small amounts of bland food (mashed potato, toast) for 24 hours. Call the physician if blood appears in your vomit or stool, if vomiting lasts longer than 24 hours, if the abdominal pain worsens or becomes localized to one area, if you develop high fever, or if you become lightheaded and weak. INTRAVENOUS (I V) FLUIDS: As part of your care today, you received intravenous (IV) fluids. IV fluids are administered to patients who are dehydrated or to those who have certain chemical (electrolyte) abnormalities that need correcting. ANTINAUSEA MEDICATION: You have been given a medication to suppress nausea and vomiting. This type of medication can be given as a shot, pill, or suppository. It will usually last for many hours. Pills and shots usually last six to eight hours. For the typical illness, only one or two doses of the medication may be necessary. Mild lightheadedness may occur. This type of medicine can cause drowsiness. Do not drive or operate dangerous machinery while under its influence. Do not mix with alcohol. See your doctor at once if you have muscle spasms or tightness, or uncontrollable motions (particularly of the neck, mouth, or jaw). Persistent vomiting or severe lightheadedness should also be evaluated by the physician. Oral Narcotic Medication You have been given a prescription for pain control. This medication is a narcotic. It's best taken with food, as nausea can result if taken on an empty stomach. Don't operate machinery or drive within six hours of taking this medication. Do not combine this medicine with alcohol, or with any medication which can cause sedation (such as cold tablets or sleeping pills) unless you get permission from the physician. Narcotics tend to cause constipation. If possible, drink plenty of fluids and eat a diet high in fiber and fruits. FOLLOW-UP CARE: If you have been referred to a physician for follow-up care, call the physicias office for an appointment as you were instructed or within the next two days. If you experience worsening or a significant change in your symptoms, notify the physician immediately or return to the Emergency Department at any time for re- evaluation. Follow-up with your doctors at [facility] as soon as possible. Call their office Monday to see if they are open so they can schedule you for a follow-up appointment. If they are not open because of the holiday, call their offices first thing Monday to try to schedule a prompt follow-up visit with him. It appears that you have a recurrent pancreatic pseudocyst which is occupying a lot of space in your abdominal cavity. There does not appear to be any evidence that its leaking or ruptured. All of your lab work is essentially normal. At any time, if you start running a high fever, have severe, increasing abdominal pains, or uncontrollable vomiting, return for us to reassess your condition. Prescriptions: Hydromorphone HCl [Dilaudid 2 mg Tablet] 2 mg PO Q4HP PRN #10 tablet PRN Reason: Promethazine HCl [Phenergan 25 mg Tablet] 1 - 2 tab PO Q6H PRN #15 tablet PRN Reason: Referrals: LISANDRA RIZZO MD [Primary Care Provider] - Follow up as needed
[2019-03-13] MEDS: NORMAL SALINE 1000 ML 1,000 ML IV PRN ×2 (13:38→13:39)
--- NOTE | 2019-03-13 14:11 | RADIOLOGY REPORT (SQ) ---
EXAM DESCRIPTION: CT ABD/PELVIS WITH IV ONLY COMPLETED DATE/TIME: 03/13/2019 1:20 pm REASON FOR STUDY: abd pain, hx of pancreatitis COMPARISON: CT abdomen pelvis 12/18/2018, 08/16/2015 TECHNIQUE: CT scan of the abdomen and pelvis performed using helical scanning technique with dynamic intravenous contrast injection. No oral contrast. Images reviewed with lung, soft tissue, and bone windows. Reconstructed coronal and sagittal MPR images reviewed. Delayed images for evaluation of the urinary system also acquired. All images stored on PACS. All CT scanners at this facility use dose modulation, iterative reconstruction, and/or weight based d osing when appropriate to reduce radiation dose to as low as reasonably achievable (ALARA). [facility]: Dose Right [facility]: CareDose [facility]: Dose Right [facility]: Teradose 4D [facility]: Clariture CONTRAST TYPE AND DOSE: contrast/concentration: Isovue 350.00 mg/ml; Total Contrast Delivered: 62.0 ml; Total Saline Delivered: 65.0 ml RENAL FUNCTION: Creatinine 0.6 RADIATION DOSE: CT Rad equipment meets quality standard of care and radiation dose reduction techniq ues were employed. CTDIvol: 4.8 - 5.5 mGy. DLP: 557 mGy-cm.. LIMITATIONS: None. FINDINGS: LOWER CHEST: No significant findings. No nodules or infiltrates. LIVER: Profound fatty infiltration of the liver is present, with focal sparing along the falciform li gament and posterior right lobe liver over the bare area. There is a 2.2 cm nodule in the posterior sub- diaphragmatic surface right lobe liver unchanged from 08/16/2015, likely a hemangioma. No intrah epatic biliary ductal dilatation. Normal contrast enhancement of the portal veins and hepatic veins. SPLEEN: There is of near water density subcapsular splenic fluid collection measuring 12 cm AP x 13 c m craniocaudad by 4 cm transverse. This is new compared to 12/18/2018, and is worrisome for pancreatic pseudocyst fluid dissecting into the subcapsular space around the spleen. The spleen itself is norm al in size, 10 cm in greatest craniocaudad length. PANCREAS: Changes of chronic pancreatitis are present along the pancreatic head neck and body, with a small densely sclerotic gland without much enhancement. Calcific pancreatitis with calcifications a t the pancreatic head, pancreatic duct is dilated along the head neck and proximal body, 8 mm in diam eter. Pancreatic tail is normal in size with normal pancreatic duct. There is extensive retroperitoneal inflammation around the pancreatic head. A lesser sac pseudocyst is present along the lesser curvature of the stomach measuring 6.5 cm craniocaudad by 3 cm transverse by 1.7 cm AP. This tracks superiorly along the lesser curvature of the stomach, to a sub-diaphragma tic fluid collection between the stomach fundus and left hemidiaphragm, measuring 2.5 cm craniocaudad by 5 cm transverse by 7 cm AP. Chronic splenic vein thrombosis is present with multiple left upper quadrant venous collaterals. GALLBLADDER: No identified stones by CT criteria. No inflammatory changes to suggest cholecystitis. ADRENAL GLANDS: No significant masses or asymmetry. RIGHT KIDNEY AND URETER: No solid masses. No significant calcifications. No hydronephrosis or hyd roureter. LEFT KIDNEY AND URETER: No solid masses. No significant calcifications. No hydronephrosis or hydr oureter. AORTA AND VESSELS: No aneurysm. No dissection. Renal arteries, SMA, celiac without stenosis. RETROPERITONEUM: No retroperitoneal adenopathy, hemorrhage or masses. BOWEL AND PERITONEAL CAVITY: No masses or inflammatory changes. No free fluid or peritoneal masses. APPENDIX: Not identified PELVIS: No mass. No free fluid. Normal bladder. Normal size female pelvic organs. Bilateral Essure devices along the fallopian tubes. ABDOMINAL WALL: No masses. No hernias. BONES: Bilateral spondylolysis at L5 with grade 1 anterolisthesis OTHER: This report was discussed with Dr. Mabry in the emergency room IMPRESSION: Chronic pancreatitis with pseudocysts in the lesser sac, left subdiaphragmatic region, a nd subcapsular spleen. These pseudocysts are new compared to prior CT 12/18/2018. TECHNICAL DOCUMENTATION: JOB ID: [id number] Quality ID # [id number]: Final reports with documentation of one or more dose reduction techniques (e.g., Au tomated exposure control, adjustment of the mA and/or kV according to patient size, use of iterative reconstruction technique) 2010 [employer]- All Rights Reserved Reading location - IP/workstation name: ASSISTANT MAINTENANCE MANAGER-[facility]-
[2019-03-13 14:21] LABS: APPEARANCE,URINE SLIGHTLY-CLOUDY; BILIRUBIN,URINE NEGATIVE (NEGATIVE); COLOR,URINE YELLOW; GLUCOSE, URINE NEGATIVE (NEGATIVE); KETONES,URINE 20 mg/dL (NEGATIVE); LEUKOCYTE ESTERASE,URINE NEGATIVE (NEGATIVE); NITRITE,URINE NEGATIVE (NEGATIVE); PROTEIN,URINE 30 mg/dL (NEGATIVE); UROBILINOGEN,URINE NEGATIVE mg/dL (<2.0)
== END 2019-03-13 16:31 | disposition home or self-care (01) ==
LOC: ER 11:00
DX: K86.3 Pseudocyst of pancreas (principal); K86.1 Other chronic pancreatitis; R11.2 Nausea with vomiting, unspecified; R19.7 Diarrhea, unspecified; R10.9 Unspecified abdominal pain; G89.29 Other chronic pain; F17.200 Nicotine dependence, unspecified, uncomplicated
CPT/HCPCS: 99284; 96361; 96374; 96375; 36415; 82553; 80307; 82550; 83690; 85025; 80053; 81001; 84484; 71045; 74177; J2765; J1170; J2405; J7030; J7040

== ENCOUNTER 2019-03-26 13:47 | Emergency (ER) | payer BC ==
[2019-03-26] MEDS ORDERED: NORMAL SALINE 1000 ML 1,000 ML IV ONE (14:36)
--- NOTE | 2019-03-26 14:40 | ER Document Report ---
ED Medical Screen (RME) - General Chief Complaint: Abdominal Pain Stated Complaint: ABDOMINAL PAIN, NAUSEA,VOMITING Time Seen by Provider: 03/26/19 14:31 Primary Care Provider: LISANDRA RIZZO MD [Primary Care Provider] - Follow up as needed Mode of Arrival: Ambulatory Information source: Patient Notes: Patient presents today with complaints of abdominal pain back pain. Patient has history of chronic pancreatitis. She is waiting for a feeding tube to be placed by [place] May 01. Patient reports she is unable to eat she drinks water she vomits it up or she has diarrhea. Reports she has lost approximately 40 pounds in the last few months. Reports she is malnourished. She reports she gets dizzy and falls. Patient reports she has not had alcohol in over 3 months. Patient is very tearful. Abdomen and back very tender to touch. She was recently treated in the emergency department and transferred. I have greeted and performed a rapid initial assessment of this patient. A comprehensive ED assessment and evaluation of the patient, analysis of test results and completion of the medical decision making process will be conducted by additional ED providers. Dictation of this chart was performed using voice recognition software; therefore, there may be some unintended grammatical errors. TRAVEL OUTSIDE OF THE [place] IN LAST 30 DAYS: No - Related Data Allergies/Adverse Reactions: No Known Allergies Allergy (Verified 03/26/19 13:47) Past Medical History - Social History Chew tobacco use (# tins/day): No Frequency of alcohol use: None Drug Abuse: None - Past Medical History Cardiac Medical History: Denies: Hx Congestive Heart Failure, Hx Heart Attack, Hx Hypertension Pulmonary Medical History: Reports: Hx Bronchitis Denies: Hx Asthma, Hx COPD, Hx Pneumonia, Hx Tuberculosis Neurological Medical History: Denies: Hx Cerebrovascular Accident, Hx Seizures Renal/ Medical History: Denies: Hx End Stage Renal Disease, Hx Kidney Stones, Hx Peritoneal Dialysis GI Medical History: Reports: Hx Gastroesophageal Reflux Disease, Hx Pancreatitis. Denies: Hx Cirrhosis, Hx Hepatitis, Hx Hiatal Hernia, Hx Ulcer Musculoskeltal Medical History: Denies Hx Arthritis, Denies Hx Multiple Sclerosis Psychiatric Medical History: Reports: Hx Depression Denies: Hx Bipolar Disorder, Hx Schizophrenia Infectious Medical History: Denies: Hx Hepatitis Past Surgical History: Reports: Hx Abdominal Surgery - pancreatic stents, Hx Tubal Ligation. Denies: Hx Hysterectomy, Hx Mastectomy, Hx Open Heart Surgery, Hx Pacemaker - Immunizations Hx Diphtheria, Pertussis, Tetanus Vaccination: Yes Physical Exam - Vital signs Vitals: Temp Pulse Resp BP Pulse Ox 97.8 F 73 16 130/81 H 100 03/26/19 13:50 03/26/19 13:50 03/26/19 13:50 03/26/19 13:50 03/26/19 13:50 Course - Vital Signs Vital signs: Temp Pulse Resp BP Pulse Ox 97.8 F 73 16 130/81 H 100 03/26/19 13:50 03/26/19 13:50 03/26/19 13:50 03/26/19 13:50 03/26/19 13:50 Doctor's Discharge - Discharge Referrals: LISANDRA RIZZO MD [Primary Care Provider] - Follow up as needed
[2019-03-26 15:14] LABS: ABSOLUTE EOSINOPHILS # (AUTO) 0.2 10^3/uL (0.0-0.6); ABSOLUTE LYMPHOCYTES (AUTO) 1.6 10^3/uL (0.5-4.7); ABSOLUTE MONOCYTES (AUTO) 0.3 10^3/uL (0.1-1.4); ABSOLUTE NEUT (AUTO) 5.6 10^3/uL (1.7-8.2); BASOPHILS % (AUTO) 0.5 % (0-2); EOSINOPHILS % (AUTO) 2.6 % (0-6); HEMATOCRIT 34.5 % (36.0-47.0); HEMOGLOBIN 11.2 g/dL (12.0-15.5); LYMPHOCYTES % (AUTO) 20.9 % (13-45); MEAN CORPUSCULAR HEMOGLOBIN 30.1 pg (27.0-33.4); MEAN CORPUSCULAR HGB CONC 32.6 g/dL (32.0-36.0); MEAN CORPUSCULAR VOLUME 93 fl (80-97); MONOCYTES % (AUTO) 3.7 % (3-13); PLATELET COUNT 701 10^3/uL (150-450); RED BLOOD COUNT 3.73 10^6/uL (3.72-5.28); RED CELL DISTRIBUTION WIDTH 21.6 % (11.5-14.0); SEGMENTED NEUTROPHILS % (AUTO) 72.3 % (42-78); TOTAL CELLS COUNTED % (AUTO) 100 %; WHITE BLOOD COUNT 7.7 10^3/uL (4.0-10.5)
[2019-03-26 15:43] LABS: ALANINE AMINOTRANSFERASE 28 U/L (9-52); ALBUMIN 2.8 g/dL (3.5-5.0); ALKALINE PHOSPHATASE 307 U/L (38-126); AMYLASE 122 U/L (30-110); ANION GAP 9 (5-19); ASPARTATE AMINO TRANSFERASE 46 U/L (14-36); BILIRUBIN,DIRECT 0.5 mg/dL (0.0-0.4); BILIRUBIN,TOTAL 0.6 mg/dL (0.2-1.3); BLOOD UREA NITROGEN 6 mg/dL (7-20); CALCIUM 8.4 mg/dL (8.4-10.2); CARBON DIOXIDE 24 mmol/L (22-30); CHLORIDE 106 mmol/L (98-107); GLUCOSE 104 mg/dL (75-110); LIPASE 317.6 U/L (23-300); POTASSIUM 3.3 mmol/L (3.6-5.0); SODIUM 138.6 mmol/L (137-145); TOTAL PROTEIN 6.9 g/dL (6.3-8.2)
[2019-03-26 15:45] LABS: ALCOHOL < 10 mg/dL (NONE DETECTED)
[2019-03-26 16:18] LABS: AMORPHOUS SEDIMENT,URINE TRACE /HPF; APPEARANCE,URINE SLIGHTLY-CLOUDY; BILIRUBIN,URINE NEGATIVE (NEGATIVE); COLOR,URINE YELLOW; GLUCOSE, URINE NEGATIVE (NEGATIVE); KETONES,URINE NEGATIVE (NEGATIVE); LEUKOCYTE ESTERASE,URINE NEGATIVE (NEGATIVE); NITRITE,URINE NEGATIVE (NEGATIVE); PROTEIN,URINE 100 mg/dL (NEGATIVE); URINE SPECIFIC GRAVITY 1.019; UROBILINOGEN,URINE NEGATIVE mg/dL (<2.0)
--- NOTE | 2019-03-26 16:56 | ER Document Report ---
ED GI/ - General Chief Complaint: Abdominal Pain Stated Complaint: ABDOMINAL PAIN, NAUSEA,VOMITING Time Seen by Provider: 03/26/19 14:31 Primary Care Provider: LISANDRA RIZZO MD [Primary Care Provider] - Follow up as needed Mode of Arrival: Ambulatory Notes: Patient is a 39-year-old female who presents to the emergency department with a chief complaint of abdominal pain. Patient states that she was seen here 2 weeks ago and discharged home to follow-up with her medical records clerk for continued abdominal pain. Patient states she does have a history of chronic pancreatitis with pancreatic stents that were placed back in November and removed in December. Patient states she has a history of pseudocyst. Patient states she did follow-up with Dr. Emerson at [facility] as her medical records clerk but that he was unable to help her. Patient does have a appointment at [facility] on May 01 to have a feeding tube placed and a possible transplant. Patient states that she is unable to tolerate liquids or food and has lost 40 pounds within the past 3 months. Patient states that she is having upper abdominal pain for the past 2 weeks has continued to get worse. Patient states that she is dizzy. Patient states she is also having diarrhea. Patient states her last alcoholic beverage was in November. TRAVEL OUTSIDE OF THE [place] IN LAST 30 DAYS: No - Related Data Allergies/Adverse Reactions: No Known Allergies Allergy (Verified 03/26/19 13:47) Past Medical History - General Information source: Patient - Social History Smoking Status: Current Every Day Smoker Chew tobacco use (# tins/day): No Frequency of alcohol use: None Drug Abuse: None Lives with: Spouse/Significant other Family History: Reviewed & Not Pertinent Patient has suicidal ideation: No Patient has homicidal ideation: No - Past Medical History Cardiac Medical History: Reports: None Denies: Hx Congestive Heart Failure, Hx Heart Attack, Hx Hypertension Pulmonary Medical History: Reports: Hx Bronchitis Denies: Hx Asthma, Hx COPD, Hx Pneumonia, Hx Tuberculosis EENT Medical History: Reports: None Neurological Medical History: Reports: None. Denies: Hx Cerebrovascular Accident, Hx Seizures Endocrine Medical History: Reports: None Renal/ Medical History: Reports: None. Denies: Hx End Stage Renal Disease, Hx Kidney Stones, Hx Peritoneal Dialysis Malignancy Medical History: Reports: None GI Medical History: Reports: Hx Gastroesophageal Reflux Disease, Hx Pancreatitis. Denies: Hx Cirrhosis, Hx Hepatitis, Hx Hiatal Hernia, Hx Ulcer Musculoskeletal Medical History: Reports None, Denies Hx Arthritis, Denies Hx Mu ltiple Sclerosis Skin Medical History: Reports None Psychiatric Medical History: Reports: Hx Depression Denies: Hx Bipolar Disorder, Hx Schizophrenia Traumatic Medical History: Reports: None Infectious Medical History: Reports: None. Denies: Hx Hepatitis Past Surgical History: Reports: Hx Abdominal Surgery - pancreatic stents, Hx Tubal Ligation. Denies: Hx Hysterectomy, Hx Mastectomy, Hx Open Heart Surgery, Hx Pacemaker - Immunizations Hx Diphtheria, Pertussis, Tetanus Vaccination: Yes Review of Systems - Review of Systems Constitutional: See HPI EENT: No symptoms reported Cardiovascular: No symptoms reported Respiratory: No symptoms reported Gastrointestinal: See HPI Genitourinary: No symptoms reported Female Genitourinary: No symptoms reported Musculoskeletal: No symptoms reported Skin: No symptoms reported Hematologic/Lymphatic: No symptoms reported Neurological/Psychological: No symptoms reported Physical Exam - Vital signs Vitals: Temp Pulse Resp BP Pulse Ox 97.8 F 73 16 130/81 H 100 03/26/19 13:50 03/26/19 13:50 03/26/19 13:50 03/26/19 13:50 03/26/19 13:50 Interpretation: Normal - Notes Notes: GENERAL: Patient tearful, rocking back and forth on stretcher HEAD: Atraumatic, normocephalic. EYES: Pupils equal round and reactive to light, extraocular movements intact, sclera anicteric, conjunctiva are normal. ENT: Nares patent, oropharynx clear without exudates. Moist mucous membranes. NECK: Normal range of motion, supple without lymphadenopathy or JVD. LUNGS: Breath sounds clear to auscultation bilaterally and equal. No wheezes rales or rhonchi. HEART: Regular rate and rhythm without murmurs, rubs or gallops. ABDOMEN: Soft, generalized abdominal pain with palpation worse in the upper abdomen, hyperactive bowel sounds. No guarding. No masses appreciated. BACK: No cervical, thoracic, lumbar midline tenderness. No saddle anesthesia, normal distal neurovascular exam. GENITOURINARY: Deferred. EXTREMITIES: Normal range of motion, no pitting or edema. No clubbing or cyanosis. NEUROLOGICAL: Cranial nerves II through XII grossly intact. Normal speech, normal gait. PSYCH: Normal mood, normal affect. SKIN: Warm, Dry, normal turgor, no rashes or lesions noted. Course - Re-evaluation Re-evalutation: 03/26/19 17:26 Speak with my supervising physician Dr. Orr who recommends ordering an abdominal percent as the patient did have a CAT scan 2 weeks ago. Patient does have a follow-up appointment at [facility] on May 01 to potentially have a feeding tube placed. She recommends calling the [facility] if the results of the ultrasound are concerning and a change from previous imaging. We will give him a dose of pain medication. The fluids had previously been ordered by triage provider. 03/26/19 18:43 Patient requesting something to drink as she feels a little better and feels like she is able to tolerate liquids. I did inform the nurse that the patient remains n.p.o. until the abdominal ultrasound has resulted. Has not had any vomiting or diarrhea since being in the emergency department. 03/26/19 19:[address] Post regarding the abdominal ultrasound, patient complaints and + pericholecystic fluid that was present. Will come and see the patient. 03/26/19 19:49 Dr. Post at bedside speaking with patient. Would like me to consult [facility] as her surgeon (Dr. Thompson) is there is following her for her chronic pancreatitis and who saw her March 06 to discuss having a feeding tube placed. 03/26/19 19:53 Paged [facility] for consult/possible transfer. 03/26/19 21:[address] Prieto the emergency department at [facility] as well as GI and surgery who state that the patient appears to be stable that if it is a acute cholecystitis she does not need to be transferred and that her surgeon can handle her appropriately at our hospital. I did speak with Dr. Post who did come down to reevaluate the patient. After a very long discussion Dr. Post states that he does not believe the patient has an acute cholecystitis and recommends giving a dose of antibiotics and pain medications and discharging the patient home. He did discuss with the patient to go to [facility] tomorrow and follow- up with her physician. Patient, boyfriend and Dr. Post in agreement with this plan and patient states she does want to go home and follow-up with [facility] and if she needed surgery she would want to be done at [facility]. Patient is tolerating sips of liquid. Will give patient a dose of pain medication, a p.o. challenge and reevaluate prior to discharge. 03/26/19 22:17 Dr. Post at bedside speaking with the patient. He did provide the patient with a prescription for Dilaudid to go home with. He has discussed in detail with the patient to follow-up with [facility] as previously discussed. The patient and her boyfriend are in agreement of this plan. Patient denies pain at this time. Patient did receive IV antibiotics and will be discharged home. Patient abdomen is soft patient is tolerating liquids. Did speak with my supervising physician Dr. Martine Mcdermott regarding patient's lab work. At this time she states that the patient would be unable to tolerate p.o. potassium due to the recent abdominal pain and vomiting and that the potassium level was not critically low at 3.3. Patient's blood pressure was in the 90s systolic. Patient states that her blood pressure normally does run low and that she is on a antianxiety medicine called propranolol which she has taken since being in the emergency department and cannot affect the blood pressure. Patient is mentating appropriately denies dizziness, tolerating liquids. I did inform the patient to eat bananas and other foods with potassium. - Vital Signs Vital signs: Temp Pulse Resp BP Pulse Ox 97.3 F 60 16 95/66 L 100 03/26/19 23:05 03/26/19 23:05 03/26/19 23:05 03/26/19 23:05 03/26/19 23:05 - Laboratory Result Diagrams: 03/26/19 14:55 03/26/19 14:55 Laboratory results interpreted by me: 03/26/19 03/26/19 03/26/19 14:55 14:55 14:55 Hgb 11.2 L Hct 34.5 L RDW 21.6 H Plt Count 701 H Potassium 3.3 L BUN 6 L Direct Bilirubin 0.5 H AST 46 H Alkaline Phosphatase 307 H Albumin 2.8 L Amylase 122 H Lipase 317.6 H Urine Protein 100 H Discharge - Discharge Clinical Impression: Chronic pancreatitis, Nausea & vomiting, Hypokalemia Condition: Stable Disposition: HOME, SELF-CARE Instructions: Abdominal Pain ([facility]), Antinausea Medication ([facility]), Intravenous (IV) Fluids ([facility]), Vomiting ([facility]) Additional Instructions: Today you were seen in the emergency department for abdominal pain. You did have an ultrasound of the abdomen performed and this was reviewed by our on-call surgicalist Dr. Post. After evaluation our surgeon does not think that you have any acute process developing and thinks that your pain is related to your chronic pancreatitis. After a very long discussion with the surgeon and your self, you have agreed that you would like to go home and follow-up with [facility] tomorrow. Dr. Post has given you a prescription for Dilaudid which is a pain medication. This is a narcotic and can make you drowsy so do not drive or operate heavy machinery while on this pain medication. Please return to the emergency department if your pain becomes more severe or more concentrated in one specific area, you have blood in your vomit, urine or bowel movements, you have vomitus that is uncontrolled with antinausea medicine, fever greater than 100, if your abdomen becomes swollen and distended or if you have any other concerning signs or symptoms. Abdominal Pain There are many causes of abdominal pain. Pain can mean a serious problem requiring surgery (such as appendicitis). It can also be an innocent problem that goes away on its own (such as a viral infection). Often, time must pass to determine the cause of pain. The physician does not feel that hospitalization is necessary, at present. Things may change within the next 24 hours. Call the doctor or come back for re- examination if any problems occur, such as: (1) Pain that becomes more severe, steady, or becomes concentrated in one specific area. Also, pain that is more severe with movement or coughing. (2) Vomiting that persists or becomes more frequent. (3) Blood in the vomitus, urine, or bowel movements. Blood in the stool may have a tarry or black appearance. (4) Shaking chills or fever greater than 100 degrees F. (5) The abdomen becomes more distended or swollen. (6) Bowel movements cease. (7) Failure to improve as expected. Prescriptions: Promethazine HCl [Phenergan 25 mg Tablet] 1 tab PO Q6H PRN #15 tablet PRN Reason: Forms: Return to Work Referrals: LISANDRA RIZZO MD [Primary Care Provider] - Follow up as needed
[2019-03-26] MEDS ORDERED: FAMOTIDINE INJ/PF 20 MG/2 ML SDV IV ONE (16:57)
[2019-03-26] MEDS ORDERED: MORPHINE SULFATE 10 MG/ML INJ IV ONE ×2 (16:57→20:37)
[2019-03-26] MEDS ORDERED: ONDANSETRON HCL INJ/PF 4 MG/2 ML SDV IV ONE (18:26)
--- NOTE | 2019-03-26 19:08 | RADIOLOGY REPORT (SQ) ---
EXAM DESCRIPTION: U/S ABDOMEN COMPLETE W/DOPPLER COMPLETED DATE/TIME: 03/26/2019 6:34 pm REASON FOR STUDY: hx. pancreatitis, upper abdominal pain COMPARISON: 03/13/2019 CT TECHNIQUE: Dynamic and static grayscale images acquired of the abdomen and recorded on PACS. Additio nal selected color Doppler and spectral images recorded. Note: Exam does not meet criteria for a complete doppler/duplex scan LIMITATIONS: Study limited due to acoustical interference from fat or from air in the bowel. FINDINGS: PANCREAS: Heterogeneous appearance with multiple calcifications and pancreatic duct dilata tion. LIVER: Fatty infiltration. Poor parenchymal beam penetration limits evaluation. LIVER VASCULATURE: Normal directional flow of the main portal vein and hepatic veins. GALLBLADDER: Moderate sludge. No shadowing stones. Mild increased wall thickness. There is pericho lecystic fluid. ULTRASOUND-DETECTED STUART'S SIGN: Positive. INTRAHEPATIC DUCTS AND COMMON DUCT: CBD and intrahepatic ducts normal caliber. No filling defects. INFERIOR VENA CAVA: Normal flow. AORTA: No aneurysm. RIGHT KIDNEY: Normal size. Normal echogenicity. No solid or suspicious masses. No hydronephrosis. No calcifications. LEFT KIDNEY: Normal size. Normal echogenicity. No solid or suspicious masses. No hydronephrosis. No calcifications. SPLEEN:Enlarged 12.4 cm length. PERITONEAL AND PLEURAL SPACES: Moderate ascites . OTHER: No other significant finding. IMPRESSION: Moderate gallbladder sludge. Reported positive sonographic Stuart's sign. There is nereyda cholecystic fluid. Moderate ascites. Fatty liver. Findings consistent with chronic pancreatitis. TECHNICAL DOCUMENTATION: JOB ID: [id number] 2010 [employer]- All Rights Reserved Reading location - IP/workstation name: [facility]
[2019-03-26] MEDS ORDERED: NORMAL SALINE 1000 ML 1,000 ML IV PRN (20:17)
[2019-03-26] MEDS ORDERED: HYDROMORPHONE HCL INJ/PF 2 MG/ML AMPULE IV ONE (21:39)
[2019-03-26] MEDS ORDERED: CEFTRIAXONE 1 GM/D5W RTU 1 GM/50 ML RTUPB IV ONE (21:39)
--- NOTE | 2019-03-26 22:36 | PDOC CONSULTATION ---
Consultation Consult Date: 03/26/19 Attending physician:: LORNA SETH Provider Consulted: ERWIN BRYAN Consult reason:: abdominal pain, r/o cholecystitis History of Present Illness Admission Date/PCP: LISANDRA RIZZO MD History of Present Illness: HANH MULLINS is a 39-year-old female who presents to the emergency department with a chief complaint of abdominal pain. Patient states that she was seen here 2 weeks ago and discharged home to follow-up with [place] stroenterologist for continued abdominal pain. Patient states she does have a history of chronic pancreatitis with pancreatic stents that were placed back in November and removed in December. Patient states she has a history of pseudocyst. Patient states she did follow-up with Dr. Emerson at [facility] as her production team manager but that he was unable to help her. she has had a long hx of acute on chronic pancreatitis with a hx of necrotizing pancratiis currently has had more mid abd pain over the last 6mos with wt loss. has recently had pancreatic stents placed and removed which helped one time pt does have multiple appoints with physicians at upcoming for nasoenteric tube placemnt due to chronic vomiting. and wit nutrition. pt has reportedly been noncompliant etoh abstinence she reports last drink in november, but then stated "when you have pain you need to do something" an ultrasound done er does show some fluid around the gallbladder, however pt states her pain now is no different than her pain over the last 6mos. more localized to the epigastrium. Past Medical History Cardiac Medical History: Reports: None Denies: Congestive Heart Failure, Myocardial Infarction, Hypertension Pulmonary Medical History: Reports: Bronchitis Denies: Asthma, Chronic Obstructive Pulmonary Disease (COPD), Pneumonia, Tuberculosis EENT Medical History: Reports: None Neurological Medical History: Reports: None Denies: Seizures Endocrine Medical History: Reports: None Renal/ Medical History: Reports: None Denies: End Stage Renal Disease Malignancy Medical History: Reports: None GI Medical History: Reports: Gastroesophageal Reflux Disease Denies: Cirrhosis, Hepatitis, Hiatal Hernia Musculoskeltal Medical History: Reports: None Denies: Arthritis Skin Medical History: Reports: None Psychiatric Medical History: Reports: Depression Denies: Bipolar Disorder Traumatic Medical History: Reports: None Hematology: Reports: Anemia Denies: Sickle Cell Disease, Bleeding Tendencies Infectious Medical History: Reports: None Past Surgical History Past Surgical History: Reports: Tubal Ligation Denies: Amputation, Hysterectomy, Mastectomy, Pacemaker Social History Lives with: Spouse/Significant other Smoking Status: Current Every Day Smoker Frequency of Alcohol Use: None - Currently denies but historicaly drinks half gallon of vodka but has been in detox for the last 2 weeks, started drinking last night. Hx Recreational Drug Use: No Drugs: None Hx Prescription Drug Abuse: No Family History Family History: Reviewed & Not Pertinent Parental Family History Reviewed: No Children Family History Reviewed: NA Sibling(s) Family History Reviewed.: NA Medication/Allergy Home Medications: Fluticasone Propionate [Flonase Nasal Etlan 50 Mcg/Etlan 16 gm] 1 spray NAREB DAILY 12/19/18 Pantoprazole Sodium [Protonix [address] Packet] 40 mg PO DAILY 12/19/18 Trazodone HCl [Desyrel] 100 mg PO QHS 12/19/18 Fluoxetine HCl 40 mg PO DAILY 03/13/19 Ondansetron HCl [Zofran 8 mg Tablet] 8 mg PO Q8HP PRN 03/13/19 Lipase/Protease/Amylase [Creon Dr 3,000 Units Capsule] 1 cap PO ASDIR PRN 03/26/19 Allergies/Adverse Reactions: No Known Allergies Allergy (Verified 03/26/19 13:47) Review of Systems Constitutional: PRESENT: anorexia, fatigue, weakness, weight loss Eyes: ABSENT: visual disturbances Ears: ABSENT: hearing changes Nose, Mouth, and Throat: ABSENT: as per HPI, headache(s), mouth pain, sore throat, vertigo, other Cardiovascular: ABSENT: as per HPI, chest pain, dyspnea on exertion, edema, orthropnea, palpitations, other Respiratory: ABSENT: as per HPI, cough, dyspnea, hemoptysis, sputum, other Genitourinary: ABSENT: as per HPI, difficulty urinating, dysuria, hematuria, nocturia, other Musculoskeletal: PRESENT: muscle weakness Integumentary: ABSENT: as per HPI, diaphoresis, erythema, lesions, pruritus, rash, wounds, other Neurological: ABSENT: as per HPI, abnormal gait, abnormal movements, abnormal speech, confusion, convulsions, dizziness, focal weakness, frequent falls, lack of coordination, memory loss, numbness, paresthesias, restless legs, syncope, tingling, tremor(s), vertigo, weakness, other Psychiatric: ABSENT: as per HPI, anxiety, depression, hallucinations, homidical ideation, suicidal ideation, other Endocrine: ABSENT: as per HPI, cold intolerance, flushing, heat intolerance, menstrual abnormalities, polydipsia, polyphagia, polyuria, other Hematologic/Lymphatic: ABSENT: as per HPI, easy bleeding, easy bruising, lymphadenopathy, other Allergic/Immunologic: ABSENT: as per HPI, seasonal rhinorrhea, other Physical Exam Vital Signs: Temp Pulse Resp BP Pulse Ox 97.4 F 58 L 20 100/62 100 03/26/19 20:04 03/26/19 20:04 03/26/19 20:04 03/26/19 20:04 03/26/19 20:04 Intake & Output 03/25/19 03/26/19 03/27/19 06:59 06:59 06:59 Intake Total 1000 Balance 1000 Weight 53.6 kg General appearance: PRESENT: disheveled, mild distress, thin Head exam: PRESENT: normocephalic Eye exam: PRESENT: EOMI Ear exam: PRESENT: TM's normal bilaterally Mouth exam: PRESENT: moist Neck exam: PRESENT: full ROM Respiratory exam: PRESENT: clear to auscultation brenda Cardiovascular exam: PRESENT: RRR GI/Abdominal exam: PRESENT: other - thin with mild to moderate pain in epigastrium, no stuart's Rectal exam: PRESENT: deferred Extremities exam: PRESENT: full ROM Musculoskeletal exam: PRESENT: full ROM Neurological exam: PRESENT: alert, awake, oriented to person, oriented to place Psychiatric exam: PRESENT: anxious Skin exam: PRESENT: dry Results Laboratory Results: 03/26/19 14:55 03/26/19 14:55 03/26/19 03/26/19 03/26/19 14:55 14:55 14:55 WBC 7.7 RBC 3.73 Hgb 11.2 L Hct 34.5 L MCV 93 MCH 30.1 MCHC 32.6 RDW 21.6 H Plt Count 701 H Seg Neutrophils % 72.3 Lymphocytes % 20.9 Monocytes % 3.7 Eosinophils % 2.6 Basophils % 0.5 Absolute Neutrophils 5.6 Absolute Lymphocytes 1.6 Absolute Monocytes 0.3 Absolute Eosinophils 0.2 Absolute Basophils 0.0 Sodium 138.6 Potassium 3.3 L Chloride 106 Carbon Dioxide 24 Anion Gap 9 BUN 6 L Creatinine 0.58 Est GFR ( Amer) > 60 Est GFR (Non-Af Amer) > 60 Glucose 104 Calcium 8.4 Total Bilirubin 0.6 AST 46 H ALT 28 Alkaline Phosphatase 307 H Total Protein 6.9 Albumin 2.8 L Amylase 122 H Lipase 317.6 H Urine Color YELLOW Urine Appearance SLIGHTLY-CLOUDY Urine pH 6.0 Ur Specific Crandall 1.019 Urine Protein 100 H Urine Glucose (UA) NEGATIVE Urine Ketones NEGATIVE Urine Blood NEGATIVE Urine Nitrite NEGATIVE Ur Leukocyte Esterase NEGATIVE Urine WBC (Auto) 17 Urine RBC (Auto) 1 Impressions: Abdomen Ultrasound 03/26/19 17:26 IMPRESSION: Moderate gallbladder sludge. Reported positive sonographic Stuart's sign. There is pericholecystic fluid. Moderate ascites. Fatty liver. Findings consistent with chronic pancreatitis. Assessment & Plan - Diagnosis (2) Acute pancreatitis Qualifiers: Pancreatitis type: unspecified pancreatitis type - Plan Summary Plan Summary: pt does have moderated ascites and some fluid around the gallbladder on ultz no thickening. ultz c/w pancreatitis I suspect this is an exacerbation of her pancreatitis and not cholecystitis I spent approx an hr with pt and boyfriend discussing her hx of pancreatis and upcoming plan of treatment at [facility]. I do not feel removing her gallbladder at this time will improve her pain and I dont suspect she currently has significant cholecystitis I suggest she f/u her production team manager and surgeon at [facility] we will give her small amt of pain med for a 1-2 days she she untill she can f/u with her physicians.
[2019-03-26 23:10] VITALS: BP 95/66
== END 2019-03-26 23:21 | disposition home or self-care (01) ==
LOC: ER 13:47
DX: K86.1 Other chronic pancreatitis (principal); R11.2 Nausea with vomiting, unspecified; E87.6 Hypokalemia; R63.4 Abnormal weight loss; R10.84 Generalized abdominal pain; R42 Dizziness and giddiness; R19.7 Diarrhea, unspecified; F17.200 Nicotine dependence, unspecified, uncomplicated
CPT/HCPCS: 96376; 99285; 96361; 96375; 96365; 36415; 80307; 82150; 83690; 85025; 81025; 80053; 81001; 76700; 93976; J2270; J1170; J2405; J7030; S0028; J0696

== ENCOUNTER 2019-08-22 22:14 | Emergency (ER) | payer BC ==
[2019-08-22] MEDS ORDERED: ALPRAZOLAM 0.5 MG TABLET PO ONE (23:25)
--- NOTE | 2019-08-22 23:28 | ER Document Report ---
ED General - General Chief Complaint: Suicidal Ideation Stated Complaint: SUICIDIAL IDEATIONS,ETOH Time Seen by Provider: 08/22/19 23:09 Primary Care Provider: LISANDRA RIZZO MD [Primary Care Provider] - Follow up as needed Notes: 39-year-old female presents with suicidal ideation with plan that she will not divulge. Patient states that her boyfriend on Monday. Patient denies any pain anywhere or nausea/vomiting. Patient states that she takes propranolol for anxiety. TRAVEL OUTSIDE OF THE [place] IN LAST 30 DAYS: No - Related Data Allergies/Adverse Reactions: No Known Allergies Allergy (Verified 03/26/19 13:47) Past Medical History - Social History Smoking Status: Unknown if Ever Smoked Family History: Reviewed & Not Pertinent - Past Medical History Cardiac Medical History: Denies: Hx Congestive Heart Failure, Hx Heart Attack, Hx Hypertension Pulmonary Medical History: Reports: Hx Bronchitis Denies: Hx Asthma, Hx COPD, Hx Pneumonia, Hx Tuberculosis Neurological Medical History: Denies: Hx Cerebrovascular Accident, Hx Seizures, Hx Parkinson's Disease Renal/ Medical History: Denies: Hx End Stage Renal Disease, Hx Kidney Stones, Hx Peritoneal Dialysis GI Medical History: Reports: Hx Gastroesophageal Reflux Disease, Hx Pancreatitis. Denies: Hx Cirrhosis, Hx Hepatitis, Hx Hiatal Hernia, Hx Ulcer Musculoskeletal Medical History: Denies Hx Arthritis, Denies Hx Multiple Sclerosis Psychiatric Medical History: Reports: Hx Depression Denies: Hx Bipolar Disorder, Hx Schizophrenia Infectious Medical History: Denies: Hx Hepatitis Past Surgical History: Reports: Hx Abdominal Surgery - pancreatic stents, Hx Tubal Ligation. Denies: Hx Hysterectomy, Hx Mastectomy, Hx Open Heart Surgery, Hx Pacemaker - Immunizations Hx Diphtheria, Pertussis, Tetanus Vaccination: Yes Review of Systems - Review of Systems Notes: Constitutional: Negative for fever. HENT: Negative for sore throat. Eyes: Negative for visual changes. Cardiovascular: Negative for chest pain. Respiratory: Negative for shortness of breath. Gastrointestinal: Negative for abdominal pain, vomiting or diarrhea. Genitourinary: Negative for dysuria. Musculoskeletal: Negative for back pain. Skin: Negative for rash. Neurological: Negative for headaches, weakness or numbness. Psych: Positive for suicidal ideation. 10 point ROS negative except as marked above and in HPI. Physical Exam - Vital signs Vitals: Temp Pulse Resp BP Pulse Ox 98.5 F 121 H 22 H 154/94 H 95 08/22/19 22:15 08/22/19 22:15 08/22/19 22:15 08/22/19 22:15 08/22/19 22:15 - Notes Notes: GENERAL: Well-appearing, well-nourished, tearful, anxious HEAD: Atraumatic, normocephalic. EYES: Extraocular movements intact, sclera anicteric, conjunctiva are normal. NECK: Normal range of motion, supple without lymphadenopathy or JVD. LUNGS: Breath sounds clear to auscultation bilaterally and equal. No wheezes rales or rhonchi. HEART: Regular rate and rhythm without murmurs, rubs or gallops. EXTREMITIES: Normal range of motion, no pitting or edema. No clubbing or cyanosis. NEUROLOGICAL: Cranial nerves II through XII grossly intact. Normal speech, normal gait. PSYCH: Depressed, tearful, anxious, SI SKIN: Warm, Dry, normal turgor, no rashes or lesions noted. Course - Re-evaluation Re-evalutation: 08/22/19 39-year-old female presents for suicidal ideation. Patient boyfriend recently. Patient states she has a history of anxiety and takes propranolol for it. Patient is requesting something for anxiety. Xanax ordered. Labs and urine ordered per protocol for medical clearance. 08/23/19 00:17 RN states lab called. Potassium 2.8. PO potassium ordered. Magnesium added on. - Vital Signs Vital signs: Temp Pulse Resp BP Pulse Ox 98.5 F 121 H 22 H 154/94 H 95 08/22/19 22:15 08/22/19 22:15 08/22/19 22:15 08/22/19 22:15 08/22/19 22:15 - Laboratory Result Diagrams: 08/22/19 23:00 08/22/19 23:00 Laboratory results interpreted by me: 08/22/19 08/22/19 23:00 23:00 RBC 3.71 L Hgb 11.1 L Hct 33.2 L RDW 16.5 H Potassium 2.8 L* Carbon Dioxide 20 L BUN 5 L Creatinine 0.47 L AST 38 H Alkaline Phosphatase 299 H Total Protein 8.4 H Salicylates < 1.0 L Acetaminophen < 10 L Serum Alcohol 379 H* Discharge - Discharge Clinical Impression: Suicidal ideation, Hypokalemia Alcohol intoxication Qualifiers: Complication of substance-induced condition: uncomplicated Qualified Code(s): F10.920 - Alcohol use, unspecified with intoxication, uncomplicated Condition: Stable Disposition: PSYCH HOSP/UNIT Referrals: LISANDRA RIZZO MD [Primary Care Provider] - Follow up as needed
[2019-08-22 23:29] LABS: ABSOLUTE EOSINOPHILS # (AUTO) 0.1 10^3/uL (0.0-0.6); ABSOLUTE LYMPHOCYTES (AUTO) 2.2 10^3/uL (0.5-4.7); HEMOGLOBIN 11.1 g/dL (12.0-15.5); TOTAL CELLS COUNTED % (AUTO) 100 %; WHITE BLOOD COUNT 5.3 10^3/uL (4.0-10.5)
[2019-08-22 23:35] LABS: APPEARANCE,URINE CLEAR; BILIRUBIN,URINE NEGATIVE (NEGATIVE); COLOR,URINE STRAW; GLUCOSE, URINE NEGATIVE (NEGATIVE); KETONES,URINE NEGATIVE (NEGATIVE); LEUKOCYTE ESTERASE,URINE NEGATIVE (NEGATIVE); NITRITE,URINE NEGATIVE (NEGATIVE); PROTEIN,URINE NEGATIVE (NEGATIVE); URINE SPECIFIC GRAVITY 1.003; UROBILINOGEN,URINE NEGATIVE mg/dL (<2.0)
[2019-08-22 23:43] LABS: ABSOLUTE BASOPHILS # (AUTO) 0.1 10^3/uL (0.0-0.2); ABSOLUTE MONOCYTES (AUTO) 0.5 10^3/uL (0.1-1.4); ABSOLUTE NEUT (AUTO) 2.5 10^3/uL (1.7-8.2); EOSINOPHILS % (AUTO) 1.8 % (0-6); HEMATOCRIT 33.2 % (36.0-47.0); MEAN CORPUSCULAR HEMOGLOBIN 29.9 pg (27.0-33.4); MEAN CORPUSCULAR HGB CONC 33.4 g/dL (32.0-36.0); MEAN CORPUSCULAR VOLUME 90 fl (80-97); MONOCYTES % (AUTO) 8.7 % (3-13); PLATELET COUNT 450 10^3/uL (150-450); RED BLOOD COUNT 3.71 10^6/uL (3.72-5.28); RED CELL DISTRIBUTION WIDTH 16.5 % (11.5-14.0); SEGMENTED NEUTROPHILS % (AUTO) 47.5 % (42-78)
[2019-08-23 00:05] LABS: ALBUMIN 3.8 g/dL (3.5-5.0); ALKALINE PHOSPHATASE 299 U/L (38-126); ANION GAP 17 (5-19); ASPARTATE AMINO TRANSFERASE 38 U/L (14-36); BILIRUBIN,DIRECT 0.2 mg/dL (0.0-0.4); BILIRUBIN,TOTAL 0.2 mg/dL (0.2-1.3); BLOOD UREA NITROGEN 5 mg/dL (7-20); CALCIUM 8.8 mg/dL (8.4-10.2); CARBON DIOXIDE 20 mmol/L (22-30); CHLORIDE 107 mmol/L (98-107); GLUCOSE 106 mg/dL (75-110); TOTAL PROTEIN 8.4 g/dL (6.3-8.2)
[2019-08-23 00:15] LABS: ACETAMINOPHEN < 10 ug/mL (10-30)
[2019-08-23 00:16] LABS: POTASSIUM 2.8 mmol/L (3.6-5.0)
[2019-08-23 00:17] LABS: ALCOHOL 379 mg/dL (NONE DETECTED)
[2019-08-23] MEDS ORDERED: POTASSIUM CHLORIDE 20 MEQ PACKET PO ONE (00:17)
[2019-08-23 00:23] LABS: SALICYLATE < 1.0 mg/dL (2.0-20.0)
[2019-08-23 00:47] LABS: URINE AMPHETAMINES SCREEN NEGATIVE; URINE BARBITURATES SCREEN NEGATIVE; URINE BENZODIAZEPINES SCREEN NEGATIVE; URINE COCAINE SCREEN NEGATIVE; URINE MARIJUANA (THC) SCREEN NEGATIVE; URINE METHADONE SCREEN NEGATIVE; URINE PHENCYCLIDINE SCREEN NEGATIVE
[2019-08-23] MEDS ORDERED: PROTEASE PO PRN (02:05)
[2019-08-23] MEDS ORDERED: AMYLASE PO PRN (02:05)
[2019-08-23] MEDS ORDERED: LIPASE PO PRN (02:05)
[2019-08-23] MEDS ORDERED: PANTOPRAZOLE SODIUM 40 MG PACKET.DR PO SCH (06:00)
--- NOTE | 2019-08-23 06:48 | EKG REPORT ---
SEVERITY:- ABNORMAL ECG - SINUS TACHYCARDIA NONSPECIFIC ST-T CHANGES DIFFUSE : Confirmed by: Pavel Davis MD 23-Aug-2019 06:47:47
[2019-08-23] MEDS ORDERED: ACETAMINOPHEN 325 MG TABLET PO ONE ×2 (07:02→10:47)
[2019-08-23] MEDS: ONDANSETRON HCL 8 MG TABLET PO PRN ×2 (09:53→21:46)
[2019-08-23] MEDS ORDERED: FLUOXETINE HCL 20 MG CAPSULE PO SCH (10:00)
[2019-08-23] MEDS ORDERED: OXYCODONE HCL JT SCH (10:00)
[2019-08-23] MEDS: PANTOPRAZOLE SODIUM 40 MG TABLET.DR PO SCH (10:14)
[2019-08-23] MEDS ORDERED: PANTOPRAZOLE SODIUM 40 MG PACKET.DR PO ONE (10:30)
[2019-08-23] MEDS: PROPRANOLOL HCL 20 MG TABLET PO SCH ×2 (10:45→19:01)
--- NOTE | 2019-08-23 10:48 | ER Document Report ---
Doctor's Note Notes: 08/23/19 10:48 S: Patient to the emergency department last night with complaints of alcohol abuse and suicidal ideation. She states that this past weekend her boyfriend unexpectedly. She states that she found him down in their apartment and she thinks he fell and may be had a heart attack. She states that he was pretty much when she found him. She states that she has been struggling with his since then. She states that she has been having to clean up the apartment by herself and there is blood on the floor. She states that Monday after he passed she did not know how to deal with it so she began to drink. She states that she has been sober for some time and is on Creon because she has b lown out her pancreas from alcohol abuse. She states that she has been binging ever since. She states that she has been binging on alcohol to kill her self. She continues to state that she feels like if she is sent home that she is a harm to herself. She has felt slightly tremulous and very anxious since arrival. Crisis team is evaluating her. She is currently on IVC papers. O: Constitution: Alert, anxious, tearful during interview. Cardiac: Regular rate and rhythm, no murmurs, rubs, gallops Lungs: Clear to auscultation bilaterally, no wheezes, rhonchi, rales Abdomen: Soft, nontender, nondistended. Healed area where feeding tube was. Psych: Anxious, very tearful, states that she will kill herself if she is at home. She has a plan to drink herself to . She denies any HI, romero ucinations Neuro: Cranial nerves II through XII intact, no pronator drift, mild tremor of the hands. Patient is alert and oriented x4. No leg drift. A/P: Patient will be kept in the emergency department overnight. We will be adding Effexor and BuSpar to her treatment today. I have canceled the Prozac and the trazodone. Crisis team will continue to monitor and evaluate patient closely. Likely that she will be placed somewhere for further acute treatment.
[2019-08-23] MEDS ORDERED: LORAZEPAM 0.5 MG TABLET PO ONE ×2 (10:56→17:10)
--- NOTE | 2019-08-23 15:05 | PSYCHOLOGICAL NOTE ---
Psych Note - Psych Note Date seen by psych provider: 08/23/19 Time seen by psych provider: 07:50 Psych Note: Reason for Consult: Suicidal ideation/ ETOH Consent Permissions:none provided pt comes to ed via EMS with c/o SI and ETOH. pt uncooperative and on cell phone. pt attempted to closed door on this RN and security involved. Patient discloses that she found her boyfriend after he fell. She disclosed that he was transported here but it was already too late. This was Monday. She disclosed that since Monday she has been drinking nonstop and states that she knows if she drinks she could because she is chronic pancreatitis. She reports that she needs a new pancreas but is on able to get a transplant because she does not weigh enough. She reports that she only has had a couple incidences over the last year of relapsing with alcohol but this time is significantly more. Patient reports she was attempting to clean the apartment and could not handle it and started drinking. Patient is alert and orientated to person, place, time and circumstance. Mood is dysphoric with tearful affect. Patient reports passive suicidal ideation (ie no plan, means or intent). She denies homicidal ideation. Delusions are absent and behaviors congruent with an intact reality based presentation ie organized and linear thought process. Eye contact is poor. Conversational speech is tearful, but easily understood. Intellectual abilities appear to be within the average range. Attention and concentration are fair. Insight, judgment, impulse control are poor. Diagnosis: Acute stress Bereavement Alcohol abuse; severe Medication recommendations per [facility]'s contracted psychiatrist Dr. Marcial SEARS are as follows Effexor 37.5 mg twice daily Buspar 10mg twice daily Impression\plan:Patient is recommended for IVC petition for overnight observation. Patient is tearful and having a difficult time coping after finding her significant other after falling. She disclosed this happened Monday and she has been drinking nonstop since Monday. She confirms she knows she could from drinking since she has chronic pancreatitis. Medication recommendations have been provided. Dr. Davis was consulted to care management of this patient; attending physicians in agreement with recommendations and disposition.
[2019-08-23] MEDS: VENLAFAXINE HCL 75 MG TABLET PO SCH (18:59)
[2019-08-23] MEDS: BUSPIRONE HCL 10 MG TABLET PO SCH (19:01)
[2019-08-23] MEDS ORDERED: TRAZODONE HCL 50 MG TABLET PO SCH (22:00)
[2019-08-23] MEDS ORDERED: IBUPROFEN 600 MG TABLET PO ONE (23:13)
[2019-08-23] MEDS ORDERED: DIPHENHYDRAMINE HCL 25 MG CAPSULE PO ONE (23:13)
[2019-08-24] MEDS ORDERED: ACETAMINOPHEN 325 MG TABLET PO ONE (04:48)
--- NOTE | 2019-08-24 09:57 | PSYCHOLOGICAL NOTE ---
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 pt uncooperative and on cell phone. pt attempted to closed door on this RN and security involved. Conduct-in conducted with patient: Patient discussed current thoughts and feelings surrounding her recent relapse and stress surrounding losing her significant other. Patient denies wanting to and states "I cannot drink alcohol... I was just doing too much too fast.... I became overwhelmed.... I need to slow down...I am sad, but " Patient disclosed that additional stressor comes from not knowing if she will have to move out of her current residence on the end of the month. She confirms she needs outpatient services for both medication management and therapy. Mood is euthymic with congruent affect as evidenced by engaging with clinician. Patient discusses concerns in regards to medications and wants to make sure there will be no adverse effects due to her difficulties with her pancreas. Behavior health team contacted [facility] and was able to secure in appointment for August at 9:40am for medication management and therapy on October 01, 2019 at 9 AM Diagnosis: Acute stress Bereavement Alcohol abuse; severe Medication recommendations per [facility]'s contracted psychiatrist Dr. Marcial SEARS are as follows Effexor 37.5 mg twice daily Buspar 10mg twice daily Impression\\plan: Patient is recommended for rescind of IVC and is cleared from acute psychiatric services. Patient is no longer under the influence and is no longer experiencing mood liability. Patient is able to discuss clearly her emotions surrounding the loss of her significant other and finding him. She denies she wants to and demonstrates forward thinking in regards to ensuring continued health i.e. making sure medications will not have adverse effect with her current medical concerns with her pancreas. Patient confirms the need for both medication management and therapeutic services. Behavior health team has been able to secure appointments at [facility] for the patient. Patient has been provided mobile crisis contact information; she confirms she will contact if she feels in crisis. 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 Dr. Davis was consulted to care management of this patient; attending physicians in agreement with recommendations and disposition.
[2019-08-24] MEDS: VENLAFAXINE HCL 75 MG TABLET PO SCH (10:03)
[2019-08-24] MEDS: PROPRANOLOL HCL 20 MG TABLET PO SCH (10:03)
[2019-08-24] MEDS: PANTOPRAZOLE SODIUM 40 MG TABLET.DR PO SCH (10:04)
[2019-08-24] MEDS: BUSPIRONE HCL 10 MG TABLET PO SCH (10:04)
--- NOTE | 2019-08-24 10:48 | ER Document Report ---
Doctor's Note Notes: 08/24/19 10:47 S: 39 year old female here in the Er for acute grief reaction and suicidal ideation. She came in three days ago and states that she has been trying to drink herself to since her boyfriend unexpectedly one week ago. States she has been trying to clean out their apartment and really struggling to deal with his . She states that she has a history of pancreatitis from chronic alcoholism and has been sober for over a year prior to this. yesterday patient was started on Buspar and Effexor. She has done well over night. Today she states she is feeling much better. She still becomes tearful when she talks about about her boyfriend but she is significantly better today in her mood. She has good insight and realizes that she has a good support system. She denies SI, HI, hallucinations today. She is not tremulous or having any symptoms of alcohol withdrawal today. O: Constitutional: alert, oriented, and in no acute distress Cardiac: RRR, no murmurs, rubs, or gallops Lungs: CTA bilaterally, no wheezing, rhonchi, or rales Abd: non tender, soft Psych: Improved mood today. no SI, HI, hallucinations. skin: good turgor, dry skin A/P: Patient has been evaluated by Crisis and they have gotten her good follow up for outpatient care. She is no having SI, HI, hallucinations today. She feels much better and feels safe to go home. She will [place] an appointment with [facility] and [facility] Crisis will follow her as well. We will send home with Effexor and Buspar.
[2019-08-24] MEDS ORDERED: POTASSIUM CHLORIDE 20 MEQ PACKET PO ONE (10:57)
[2019-08-24 11:07] VITALS: BP 127/86
== END 2019-08-24 11:25 | disposition home or self-care (01) ==
LOC: ER 22:14
DX: R45.851 Suicidal ideations (principal); F43.21 Adjustment disorder with depressed mood; F43.0 Acute stress reaction; F10.220 Alcohol dependence with intoxication, uncomplicated; E87.6 Hypokalemia; Z79.899 Other long term (current) drug therapy
CPT/HCPCS: 93005; 36415; 80307 ×4; 83735; 85025; 81025; 80053; 81001; 93010; J3490 ×3; 99285; S0119